=== PATIENT | female | born 1955 | race Caucasian/White ===

== ENCOUNTER 2018-03-26 10:30 | Outpatient (RCR) | payer OTHER, SELFPAY ==
--- NOTE | 2018-03-02 08:12 | PT.OTN ---
Addendum entered and electronically signed by Ole Szymanski, VIDHYA 03/03/18 16:30: On February 16, 2018 our therapy services consisting of Speech, Occupational, and Physical therapy transitioned from [employer] electronic documentation system to a new [employer] electronic system. All documentation prior to February 16 can be found under [employer] saved data. From February 16 forward, all medical record documentation will be in [employer]. 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) Other reduced mobility (02/26/18) Physical Therapy Treatment Note PT-OP-A Visit Information Start: 03/01/18 16:25 Freq: Status: Active Protocol: Document 02/26/18 12:30 SAK (Rec: 03/01/18 16:40 SAK [id number]) Out-Patient Physical Therapy Visit Information Visit Information Visit Type Treatment Note Visit Start Time 12:30 Visit Stop Time 13:15 Total Visit Minutes 45 Visit Number 2 Number of CUTTING MACHINE TENDER Visits 0 PT-OP-C Subjective Start: 03/01/18 16:25 Freq: Status: Active Protocol: Document 02/26/18 12:30 SAK (Rec: 03/01/18 16:40 SAK [id number]) OP-PT Subjective Patient Comments Patient Comments Excited to start aquatic therapy: I think I will tolerate this better than land -based exercise right now. PT-OP-S Aquatic Treatment Start: 03/01/18 16:25 Freq: Status: Active Protocol: Document 02/26/18 12:30 SAK (Rec: 03/01/18 16:40 SAK [id number]) Aquatics Treatment Pool Entry/Exit Pool Entry/Exit Method Stairs Assistance Standby Assistance Verbal Cues Water Walking Marching Water Level Chest Level Level of Assistance Standby Assistance Sideways Water Level Chest Level Level of Assistance Standby Assistance Verbal Cues Backwards Water Level Chest Level Level of Assistance Standby Assistance Verbal Cues Forwards Water Level Chest Level Level of Assistance Standby Assistance Verbal Cues Lower Extremity Exercises 3 Details Hip flex/ext, ab/ad, circles Body Position Standing Water Level Chest Level Reps/Duration 10x 2 Details squats Body Position Standing Water Level Waist Level Reps/Duration 10x 1 Details heel/toe raises Body Position Standing Water Level Chest Level Reps/Duration 10x Lower Extremity Stretches 1 Details hamstring stretch Body Position Standing Water Level Chest Level Equipment Ankle Floats; small Reps/Duration 2x Upper Extremity Exercises 1 Details shoulder hor ab/ad, flex/ext, circles Body Position Standing Water Level Chest Level Reps/Duration 10x [place] Activities [place] Activities Bicycle Other Activities Hip ab/ad Equipment none Duration 10 min Comments slow, frequent rest PT-OP-T Assessment and Plan Start: 03/01/18 16:25 Freq: Status: Active Protocol: Document 02/26/18 12:[address] [facility] (Rec: 03/01/18 16:[address] [facility] [id number]) Physical Therapy Plan Frequency and Duration Frequency of Treatment 2x/Week Next Visit Focus/Plan Next Visit Plan Gentle progression of therapeutic exercises; aquatic as able.
--- NOTE | 2018-03-05 11:47 | PT.OTN ---
Current Diagnoses Ataxia, unspecified (03/05/18) Other reduced mobility (03/05/18) Physical Therapy Treatment Note PT-OP-A Visit Information Start: 03/01/18 16:25 Freq: Status: Active Protocol: Document 03/05/18 09:00 GGD (Rec: 03/05/18 11:47 GGD [email or web address]) Out-Patient Physical Therapy Visit Information Visit Information Visit Type Treatment Note Visit Start Time 09:00 Visit Stop Time 09:55 Total Visit Minutes 55 Visit Number 5 Number of PANEL EDGE PAINTER Visits 1 Evaluation Information Evaluation Date 02/04/18 PT-OP-C Subjective Start: 03/01/18 16:25 Freq: Status: Active Protocol: Document 03/05/18 09:00 GGD (Rec: 03/05/18 11:47 GGD [email or web address]) OP-PT Subjective Patient Comments Patient Comments Pt states she was doing her HEP, until she got sick. PT-OP-Q Treatments Start: 03/05/18 11:34 Freq: Status: Active Protocol: Document 03/05/18 09:00 GGD (Rec: 03/05/18 11:47 GGD [email or web address]) Cardio Equipment Recumbent Elliptical (Biodex) Duration (Minutes) 5 Resistance 1 Therapeutic Exercises Supine Exercises 2 Supine Exercise Name Figure 4 str Side bilateral Reps/Minutes 2 1 Supine Exercise Name Flexion SLR Side bilateral Reps/Minutes 10 Prone Exercises 2 Prone Exercise Name hip extension Side bilateral Reps/Minutes 10 Sidelying Exercises 3 Sidelying Exercise Name clamshells Side bilateral Reps/Minutes 10 2 Sidelying Exercise Name Hip Adduction Side bilateral Reps/Minutes 10 1 Sidelying Exercise Name hip abduction Side bilateral Reps/Minutes 10 Other Exercises 1 Other Exercise Name Sit to stnd s Reps/Minutes 2 x 11 PT-OP-R Modalities Start: 03/05/18 11:34 Freq: Status: Active Protocol: Document 03/05/18 09:00 GGD (Rec: 03/05/18 11:47 GGD [email or web address]) Hot Pack/Cold Pack Treatment Cold Pack Location L/S Patient Position Hooklying Treatment Duration (minutes) 10 Patient Tolerance Good PT-OP-S Aquatic Treatment Start: 03/01/18 16:25 Freq: Status: Active Protocol: Document 02/26/18 12:30 SAK (Rec: 03/01/18 16:40 SAK [id number]) Aquatics Treatment Pool Entry/Exit Pool Entry/Exit Method Stairs Assistance Standby Assistance Verbal Cues Water Walking Marching Water Level Chest Level Level of Assistance Standby Assistance Sideways Water Level Chest Level Level of Assistance Standby Assistance Verbal Cues Backwards Water Level Chest Level Level of Assistance Standby Assistance Verbal Cues Forwards Water Level Chest Level Level of Assistance Standby Assistance Verbal Cues Lower Extremity Exercises 3 Details Hip flex/ext, ab/ad, circles Body Position Standing Water Level Chest Level Reps/Duration 10x 2 Details squats Body Position Standing Water Level Waist Level Reps/Duration 10x 1 Details heel/toe raises Body Position Standing Water Level Chest Level Reps/Duration 10x Lower Extremity Stretches 1 Details hamstring stretch Body Position Standing Water Level Chest Level Equipment Ankle Floats; small Reps/Duration 2x Upper Extremity Exercises 1 Details shoulder hor ab/ad, flex/ext, circles Body Position Standing Water Level Chest Level Reps/Duration 10x [place] Activities [place] Activities Bicycle Other Activities Hip ab/ad Equipment none Duration 10 min Comments slow, frequent rest PT-OP-T Assessment and Plan Start: 03/01/18 16:25 Freq: Status: Active Protocol: Document 03/05/18 09:00 GGD (Rec: 03/05/18 11:47 GGD [email or web address]) Physical Therapy Assessment Assessment Summary Assessment Pt slight improved tolerance to exercise. She did need rest breaks during, but less overall and increase reps on SLR and sit to stand. Physical Therapy Plan Frequency and Duration Frequency of Treatment 2x/Week Plan of Care Start Date 02/04/18 Plan of Care End Date 04/05/18 Next Visit Focus/Plan Next Visit Plan Thera band strengthening exercise and aquatic as able.
--- NOTE | 2018-03-10 17:18 | PT.OTN ---
Current Diagnoses Ataxia, unspecified (03/10/18) Other reduced mobility (03/10/18) Physical Therapy Treatment Note PT-OP-A Visit Information Start: 03/01/18 16:25 Freq: Status: Active Protocol: Document 03/10/18 16:00 GGD (Rec: 03/10/18 17:18 GGD [email or web address]) Out-Patient Physical Therapy Visit Information Visit Information Visit Type Treatment Note Visit Start Time 16:00 Visit Stop Time 16:40 Total Visit Minutes 40 Visit Number 6 Number of CEMENT CUTTER Visits 2 Evaluation Information Evaluation Date 02/04/18 PT-OP-C Subjective Start: 03/01/18 16:25 Freq: Status: Active Protocol: Document 03/10/18 16:00 GGD (Rec: 03/10/18 17:18 GGD [email or web address]) OP-PT Subjective Patient Comments Patient Comments Pt states that she doing better and feels a little stronger. PT-OP-Q Treatments Start: 03/05/18 11:34 Freq: Status: Active Protocol: Document 03/10/18 16:00 GGD (Rec: 03/10/18 17:18 GGD [email or web address]) Cardio Equipment Recumbent Elliptical (Biodex) Duration (Minutes) 5 Resistance 1 Therapeutic Exercises Supine Exercises 2 Supine Exercise Name Figure 4 str Side bilateral Reps/Minutes 2 1 Supine Exercise Name Flexion SLR Side bilateral Reps/Minutes 20 Sidelying Exercises 3 Sidelying Exercise Name clamshells Side bilateral Reps/Minutes 20 2 Sidelying Exercise Name Hip Adduction Side bilateral Reps/Minutes 20 Standing Exercises 2 Standing Exercise Name Hip Abd Side bilateral Resistance Level 1 Reps/Minutes 20 1 Standing Exercise Name Hip Extension Side bilateral Resistance Level 1 Equipment Used Thera band Reps/Minutes 20 Other Exercises 1 Other Exercise Name Sit to stands Reps/Minutes 2 x 15 PT-OP-R Modalities Start: 03/05/18 11:34 Freq: Status: Active Protocol: Document 03/05/18 09:00 GGD (Rec: 03/05/18 11:47 GGD [email or web address]) Hot Pack/Cold Pack Treatment Cold Pack Location L/S Patient Position Hooklying Treatment Duration (minutes) 10 Patient Tolerance Good PT-OP-S Aquatic Treatment Start: 03/01/18 16:25 Freq: Status: Active Protocol: Document 02/26/18 12:30 SAK (Rec: 03/01/18 16:40 SAK [id number]) Aquatics Treatment Pool Entry/Exit Pool Entry/Exit Method Stairs Assistance Standby Assistance Verbal Cues Water Walking Marching Water Level Chest Level Level of Assistance Standby Assistance Sideways Water Level Chest Level Level of Assistance Standby Assistance Verbal Cues Backwards Water Level Chest Level Level of Assistance Standby Assistance Verbal Cues Forwards Water Level Chest Level Level of Assistance Standby Assistance Verbal Cues Lower Extremity Exercises 3 Details Hip flex/ext, ab/ad, circles Body Position Standing Water Level Chest Level Reps/Duration 10x 2 Details squats Body Position Standing Water Level Waist Level Reps/Duration 10x 1 Details heel/toe raises Body Position Standing Water Level Chest Level Reps/Duration 10x Lower Extremity Stretches 1 Details hamstring stretch Body Position Standing Water Level Chest Level Equipment Ankle Floats; small Reps/Duration 2x Upper Extremity Exercises 1 Details shoulder hor ab/ad, flex/ext, circles Body Position Standing Water Level Chest Level Reps/Duration 10x [place] Activities [place] Activities Bicycle Other Activities Hip ab/ad Equipment none Duration 10 min Comments slow, frequent rest PT-OP-T Assessment and Plan Start: 03/01/18 16:25 Freq: Status: Active Protocol: Document 03/10/18 16:00 [facility]GS[facility]on (Rec: 03/10/18 17:18 GGS[facility]on [email or web address]) Physical Therapy Assessment Assessment Summary Assessment Pt improving with exercise tolerance. She needed less rest and able to increase reps and resistance. Physical Therapy Plan Frequency and Duration Frequency of Treatment 2x/Week Plan of Care Start Date 02/04/18 Plan of Care End Date 04/05/18 Next Visit Focus/Plan Next Visit Plan Thera band strengthening exercise and aquatic as able.
--- NOTE | 2018-03-12 15:53 | PT.OTN ---
Current Diagnoses Ataxia, unspecified (03/12/18) Other reduced mobility (03/12/18) Physical Therapy Treatment Note PT-OP-A Visit Information Start: 03/01/18 16:25 Freq: Status: Active Protocol: Document 03/12/18 11:00 SAK (Rec: 03/12/18 15:50 SAK [id number]) Out-Patient Physical Therapy Visit Information Visit Information Visit Type Treatment Note Visit Start Time 11:00 Visit Stop Time 11:45 Total Visit Minutes 45 Visit Number 7 Number of ANIMATION DIRECTOR Visits 0 PT-OP-C Subjective Start: 03/01/18 16:25 Freq: Status: Active Protocol: Document 03/12/18 11:00 SAK (Rec: 03/12/18 15:50 SAK [id number]) OP-PT Subjective Patient Comments Patient Comments Patient reports feeling a little stronger, was pleased she was able to do more in her last PT session. PT-OP-Q Treatments Start: 03/05/18 11:34 Freq: Status: Active Protocol: Document 03/10/18 16:00 GGD (Rec: 03/10/18 17:18 GGD [email or web address]) Cardio Equipment Recumbent Elliptical (BiodInfinit) Duration (Minutes) 5 Resistance 1 Therapeutic Exercises Supine Exercises 2 Supine Exercise Name Figure 4 str Side bilateral Reps/Minutes 2 1 Supine Exercise Name Flexion SLR Side bilateral Reps/Minutes 20 Sidelying Exercises 3 Sidelying Exercise Name clamshells Side bilateral Reps/Minutes 20 2 Sidelying Exercise Name Hip Adduction Side bilateral Reps/Minutes 20 Standing Exercises 2 Standing Exercise Name Hip Abd Side bilateral Resistance Level 1 Reps/Minutes 20 1 Standing Exercise Name Hip Extension Side bilateral Resistance Level 1 Equipment Used Thera band Reps/Minutes 20 Other Exercises 1 Other Exercise Name Sit to stands Reps/Minutes 2 x 15 PT-OP-R Modalities Start: 03/05/18 11:34 Freq: Status: Active Protocol: Document 03/05/18 09:00 GGD (Rec: 03/05/18 11:47 GGD [email or web address]) Hot Pack/Cold Pack Treatment Cold Pack Location L/S Patient Position Hooklying Treatment Duration (minutes) 10 Patient Tolerance Good PT-OP-S Aquatic Treatment Start: 03/01/18 16:25 Freq: Status: Active Protocol: Document 03/12/18 11:00 SAK (Rec: 03/12/18 15:53 [facility] [id number]) Aquatics Treatment Pool Entry/Exit Pool Entry/Exit Method Stairs Assistance Independent Water Walking Marching Water Level Chest Level Level of Assistance Verbal Cues Sideways Water Level Chest Level Level of Assistance Verbal Cues Backwards Water Level Chest Level Level of Assistance Verbal Cues Forwards Water Level Chest Level Level of Assistance Verbal Cues Lower Extremity Exercises 3 Details Hip flex/ext, ab/ad, circles Body Position Standing Water Level Chest Level Reps/Duration 10x 2 Details squats Body Position Standing Water Level Waist Level Reps/Duration 12 1 Details heel raises Lower Extremity Stretches 1 Details hamstring stretch Body Position Standing Water Level Chest Level Equipment Ankle Floats; small Reps/Duration 2x Upper Extremity Exercises 1 Details shoulder hor ab/ad, flex/ext, circles Body Position Standing Water Level Chest Level Reps/Duration 10x [place] Activities Other Activities deep water hang Equipment flotation belt Duration 10 min Comments less rest required. verbal and manual cues for correction of alignment PT-OP-T Assessment and Plan Start: 03/01/18 16:25 Freq: Status: Active Protocol: Document 03/12/18 11:00 [facility] (Rec: 03/12/18 15:50 [facility] [id number]) Physical Therapy Assessment Assessment Summary Assessment Patient demonstrated improved tolerance for aquatic therapy, improved alignment and balance ability in deep end with reversing flotation belt. Verbal and manual cues due to right lean Physical Therapy Plan Frequency and Duration Frequency of Treatment 2x/Week Duration of Treatment 2 months Plan of Care Start Date 02/04/18 Plan of Care End Date 04/05/18 Next Visit Focus/Plan Next Note Type Treatment Note Next Visit Plan Progress ther ex, aquatic exercise as tolerated. Please Sign and Return: I have reviewed this Plan of Care and certify that the skilled therapy services above are required to meet the patient???s needs. Physician Signature Date Printed Name and Credentials Clinical Instructor Signature Printed Name and Credentials
--- NOTE | 2018-03-26 16:43 | PT.OTN ---
Current Diagnoses Ataxia, unspecified (03/26/18) Other reduced mobility (03/26/18) Physical Therapy Treatment Note PT-OP-A Visit Information Start: 03/01/18 16:25 Freq: Status: Active Protocol: Document 03/26/18 10:51 LRN (Rec: 03/26/18 11:16 LRN [id number]) Out-Patient Physical Therapy Visit Information Visit Information Visit Type Progress Note Visit Start Time 10:51 Visit Stop Time 11:31 Total Visit Minutes 40 Visit Number 8 Number of FLAP PRESSER Visits 0 Evaluation Information Evaluation Date 02/04/18 PT-OP-C Subjective Start: 03/01/18 16:25 Freq: Status: Active Protocol: Document 03/26/18 10:51 LRN (Rec: 03/26/18 11:16 LRN [id number]) OP-PT Subjective Patient Comments Patient Comments Feels like she is worse with more pain in the back, hips, LE's, I'm failing and more depressed. Got a rash in her lower sacral area, so unable to go to pool. Patient Questionnaires ABC- Activity Specific Balance Confidence Scale ABC Score 48 ABC Functional Impairment 40 to <60% Impaired (Score 41- 60) Oswestry Low Back Index Oswestry Score 68 Oswestry Impairment 60 to 79% Impaired (Score 60- 79) OP-PT Pain Assessment Pain Behaviors Pain Behaviors Guarding PT-OP-E Functional Tests Start: 03/26/18 15:47 Freq: Status: Active Protocol: Document 03/26/18 10:51 LRN (Rec: 03/26/18 16:14 LRN [id number]) Functional Tests 30 Second Sit to Stand Test Score 8 reps Comments Pt pushed hands on knees. Norm is 12-17 Five Times Sit to Stand Test Score 23 sec's Comments Pt pushed hands on knees. Norm is 11.4 sec's PT-OP-Q Treatments Start: 03/05/18 11:34 Freq: Status: Active Protocol: Document 03/10/18 16:00 GGD (Rec: 03/10/18 17:18 GGD [email or web address]) Cardio Equipment Recumbent Elliptical (Biodex) Duration (Minutes) 5 Resistance 1 Therapeutic Exercises Supine Exercises 2 Supine Exercise Name Figure 4 str Side bilateral Reps/Minutes 2 1 Supine Exercise Name Flexion SLR Side bilateral Reps/Minutes 20 Sidelying Exercises 3 Sidelying Exercise Name clamshells Side bilateral Reps/Minutes 20 2 Sidelying Exercise Name Hip Adduction Side bilateral Reps/Minutes 20 Standing Exercises 2 Standing Exercise Name Hip Abd Side bilateral Resistance Level 1 Reps/Minutes 20 1 Standing Exercise Name Hip Extension Side bilateral Resistance Level 1 Equipment Used Thera band Reps/Minutes 20 Other Exercises 1 Other Exercise Name Sit to stands Reps/Minutes 2 x 15 PT-OP-R Modalities Start: 03/05/18 11:34 Freq: Status: Active Protocol: Document 03/26/18 10:51 LRN (Rec: 03/26/18 11:16 LRN [id number]) Hot Pack/Cold Pack Treatment Cold Pack Location L/S Patient Position Hooklying Treatment Duration (minutes) 10 Patient Tolerance Good PT-OP-S Aquatic Treatment Start: 03/01/18 16:25 Freq: Status: Active Protocol: Document 03/12/18 11:00 SAK (Rec: 03/12/18 15:53 SAK [id number]) Aquatics Treatment Pool Entry/Exit Pool Entry/Exit Method Stairs Assistance Independent Water Walking Marching Water Level Chest Level Level of Assistance Verbal Cues Sideways Water Level Chest Level Level of Assistance Verbal Cues Backwards Water Level Chest Level Level of Assistance Verbal Cues Forwards Water Level Chest Level Level of Assistance Verbal Cues Lower Extremity Exercises 3 Details Hip flex/ext, ab/ad, circles Body Position Standing Water Level Chest Level Reps/Duration 10x 2 Details squats Body Position Standing Water Level Waist Level Reps/Duration 12 1 Details heel raises Lower Extremity Stretches 1 Details hamstring stretch Body Position Standing Water Level Chest Level Equipment Ankle Floats; small Reps/Duration 2x Upper Extremity Exercises 1 Details shoulder hor ab/ad, flex/ext, circles Body Position Standing Water Level Chest Level Reps/Duration 10x [place] Activities Other Activities deep water hang Equipment flotation belt Duration 10 min Comments less rest required. verbal and manual cues for correction of alignment PT-OP-T Assessment and Plan Start: 03/01/18 16:25 Freq: Status: Active Protocol: Document 03/26/18 10:51 LRN (Rec: 03/26/18 11:16 LRN [id number]) Physical Therapy Assessment Rehab Potential Rehabilitation Potential Good Impairments Impairments Balance Functional Mobility Gait Posture Goals Four Impairment Pt not able to exercise independently with land based exercises. Acoustical Tile Carpenters Supervisor Goal (LTG) Pt will tolerate independent land based exercise to transition to gym exercise at discharge. LTG Duration 05/26/2018: 2 months Three Impairment Decreased function per ABC Scoring of 48% confidence Longterm Goal (LTG) Improve pt's confidence in functioinal activbities to no less than 70% confidence per ABC Scale sot the pt feels more secure with gait. LTG Duration 05/26/2018: 2 months Two Impairment Decreased function per 5TSTS Test Longterm Goal (LTG) Pt will demonstrated improved 5TSTS test of < 12 sec's to show decreased risk of falling . LTG Duration 05/26/2018: 2 months One Impairment Lack of self care HEP Longterm Goal (LTG) Pt will be educated in an independent HEP/Self Care Program. LTG Duration 05/26/2018: 2 months Progress Towards Goals Progress Comments Pt met the goal to improve 30 sec Sit to Stand test > 3 reps to show improved endurance. She also met the goal to improve LE strength to strength. LE strength is no less than 4/5 at ankles/knees/ hip extension. Pt's LBP is primarily hindering her feeling of stability and mobility. Assessment Summary Assessment Pt has shown good improvement in LE strength and overall endurance, leading to improved confidence level in function per ABC Score. She does not perceive she has improved due to her chronic back pain, but is now hopeful she can further improve and would like to continue therapy to maximize her function with her goal to wean off of her medications. The pt has verbalized her feelings of depression; therefore referral to the pain clinic may be helpful. I recommend continuation of therapy to work towards the pt goal of improving function and hopefully help her to wean off of her medications. Physical Therapy Plan Frequency and Duration Frequency of Treatment 2x/Week Duration of Treatment 2 months Plan of Care Start Date 03/26/18 Plan of Care End Date 05/28/18 Therapeutic Interventions Therapeutic Interventions Aquatic Therapy Balance Training Gait Training Home Exercise Program Manual Therapy Neuromuscular Re-education Patient/Caregiver Education Self-Care/Home Management Soft Tissue Mobilization Therapeutic Activities Therapeutic Exercises Other Therapeutic Interventions Aerobic conditioning Other Referrals/Consults Referrals/Consults Recommended Pain clinic Next Visit Focus/Plan Next Note Type Treatment Note Next Visit Plan Progress therapeutic ex on land and aquatic exercise as tolerated to achieve the above stated goals. Please Sign and Return: I have reviewed this Plan of Care and certify that the skilled therapy services above are required to meet the patient?s needs. Physician Signature Date Printed Name and Credentials Clinical Instructor Signature Printed Name and Credentials
--- NOTE | 2018-03-26 17:03 | PT.OTN ---
Current Diagnoses Ataxia, unspecified (03/26/18) Other reduced mobility (03/26/18) Physical Therapy Treatment Note PT-OP-A Visit Information Start: 03/01/18 16:25 Freq: Status: Active Protocol: Document 03/26/18 10:51 LRN (Rec: 03/26/18 11:16 LRN [id number]) Out-Patient Physical Therapy Visit Information Visit Information Visit Type Progress Note Visit Start Time 10:51 Visit Stop Time 11:31 Total Visit Minutes 40 Visit Number 8 Number of CORRESPONDENT Visits 0 Evaluation Information Evaluation Date 02/04/18 PT-OP-C Subjective Start: 03/01/18 16:25 Freq: Status: Active Protocol: Document 03/26/18 10:51 LRN (Rec: 03/26/18 11:16 LRN [id number]) OP-PT Subjective Patient Comments Patient Comments Feels like she is worse with more pain in the back, hips, LE's, I'm failing and more depressed. Got a rash in her lower sacral area, so unable to go to pool. Patient Questionnaires ABC- Activity Specific Balance Confidence Scale ABC Score 48 ABC Functional Impairment 40 to <60% Impaired (Score 41- 60) Oswestry Low Back Index Oswestry Score 68 Oswestry Impairment 60 to 79% Impaired (Score 60- 79) OP-PT Pain Assessment Pain Behaviors Pain Behaviors Guarding PT-OP-E Functional Tests Start: 03/26/18 15:47 Freq: Status: Active Protocol: Document 03/26/18 10:51 LRN (Rec: 03/26/18 16:14 LRN [id number]) Functional Tests 30 Second Sit to Stand Test Score 8 reps Comments Pt pushed hands on knees. Norm is 12-17 Five Times Sit to Stand Test Score 23 sec's Comments Pt pushed hands on knees. Norm is 11.4 sec's PT-OP-M Strength Start: 03/26/18 16:58 Freq: Status: Active Protocol: Document 03/26/18 10:51 LRN (Rec: 03/26/18 17:00 LRN [id number]) Hip Strength Hip Manual Muscle Testing Right Extension (S1) 4 Good Left Extension (S1) 4 Good Knee Strength Knee Manual Muscle Testing Right Flexion (S2) 5 Normal Extension (L3) 5 Normal Left Flexion (S2) 5 Normal Extension (L3) 5 Normal Ankle/Foot Strength Ankle and Foot Manual Muscle Testing Right Dorsiflexion (L4) 5 Normal Plantarflexion (S1) 5 Normal Inversion 5 Normal Eversion (S1) 5 Normal Left Dorsiflexion (L4) 5 Normal Plantarflexion (S1) 5 Normal Inversion 5 Normal Eversion (S1) 5 Normal PT-OP-Q Treatments Start: 03/05/18 11:34 Freq: Status: Active Protocol: Document 03/10/18 16:00 GGD (Rec: 03/10/18 17:18 GGD [id number]) Cardio Equipment Recumbent Elliptical (Biodex) Duration (Minutes) 5 Resistance 1 Therapeutic Exercises Supine Exercises 2 Supine Exercise Name Figure 4 str Side bilateral Reps/Minutes 2 1 Supine Exercise Name Flexion SLR Side bilateral Reps/Minutes 20 Sidelying Exercises 3 Sidelying Exercise Name clamshells Side bilateral Reps/Minutes 20 2 Sidelying Exercise Name Hip Adduction Side bilateral Reps/Minutes 20 Standing Exercises 2 Standing Exercise Name Hip Abd Side bilateral Resistance Level 1 Reps/Minutes 20 1 Standing Exercise Name Hip Extension Side bilateral Resistance Level 1 Equipment Used Thera band Reps/Minutes 20 Other Exercises 1 Other Exercise Name Sit to stands Reps/Minutes 2 x 15 PT-OP-R Modalities Start: 03/05/18 11:34 Freq: Status: Active Protocol: Document 03/26/18 10:51 LRN (Rec: 03/26/18 11:16 LRN [id number]) Hot Pack/Cold Pack Treatment Cold Pack Location L/S Patient Position Hooklying Treatment Duration (minutes) 10 Patient Tolerance Good PT-OP-S Aquatic Treatment Start: 03/01/18 16:25 Freq: Status: Active Protocol: Document 03/12/18 11:00 SAK (Rec: 03/12/18 15:53 SAK [id number]) Aquatics Treatment Pool Entry/Exit Pool Entry/Exit Method Stairs Assistance Independent Water Walking Marching Water Level Chest Level Level of Assistance Verbal Cues Sideways Water Level Chest Level Level of Assistance Verbal Cues Backwards Water Level Chest Level Level of Assistance Verbal Cues Forwards Water Level Chest Level Level of Assistance Verbal Cues Lower Extremity Exercises 3 Details Hip flex/ext, ab/ad, circles Body Position Standing Water Level Chest Level Reps/Duration 10x 2 Details squats Body Position Standing Water Level Waist Level Reps/Duration 12 1 Details heel raises Lower Extremity Stretches 1 Details hamstring stretch Body Position Standing Water Level Chest Level Equipment Ankle Floats; small Reps/Duration 2x Upper Extremity Exercises 1 Details shoulder hor ab/ad, flex/ext, circles Body Position Standing Water Level Chest Level Reps/Duration 10x [place] Activities Other Activities deep water hang Equipment flotation belt Duration 10 min Comments less rest required. verbal and manual cues for correction of alignment PT-OP-T Assessment and Plan Start: 03/01/18 16:25 Freq: Status: Active Protocol: Document 03/26/18 10:51 LRN (Rec: 03/26/18 11:16 LRN [id number]) Physical Therapy Assessment Rehab Potential Rehabilitation Potential Good Impairments Impairments Balance Functional Mobility Gait Posture Goals Four Impairment Pt not able to exercise independently with land based exercises. Residential Goal (LTG) Pt will tolerate independent land based exercise to transition to gym exercise at discharge. LTG Duration 05/26/2018: 2 months Three Impairment Decreased function per ABC Scoring of 48% confidence Residential Goal (LTG) Improve pt's confidence in functioinal activbities to no less than 70% confidence per ABC Scale sot the pt feels more secure with gait. LTG Duration 05/26/2018: 2 months Two Impairment Decreased function per 5TSTS Test Rn Behavioral Health Goal (LTG) Pt will demonstrated improved 5TSTS test of < 12 sec's to show decreased risk of falling . LTG Duration 05/26/2018: 2 months One Impairment Lack of self care HEP Rn Behavioral Health Goal (LTG) Pt will be educated in an independent HEP/Self Care Program. LTG Duration 05/26/2018: 2 months Progress Towards Goals Progress Comments Pt met the goal to improve 30 sec Sit to Stand test > 3 reps to show improved endurance. She also met the goal to improve LE strength to strength. LE strength is no less than 4/5 at ankles/knees/ hip extension. Pt's LBP is primarily hindering her feeling of stability and mobility. Assessment Summary Assessment Pt has shown good improvement in LE strength and overall endurance, leading to improved confidence level in function per ABC Score. She does not perceive she has improved due to her chronic back pain, but is now hopeful she can further improve and would like to continue therapy to maximize her function with her goal to wean off of her medications. The pt has verbalized her feelings of depression; therefore referral to the pain clinic may be helpful. I recommend continuation of therapy to work towards the pt goal of improving function and hopefully help her to wean off of her medications. Physical Therapy Plan Frequency and Duration Frequency of Treatment 2x/Week Duration of Treatment 2 months Plan of Care Start Date 03/26/18 Plan of Care End Date 05/28/18 Therapeutic Interventions Therapeutic Interventions Aquatic Therapy Balance Training Gait Training Home Exercise Program Manual Therapy Neuromuscular Re-education Patient/Caregiver Education Self-Care/Home Management Soft Tissue Mobilization Therapeutic Activities Therapeutic Exercises Other Therapeutic Interventions Aerobic conditioning Other Referrals/Consults Referrals/Consults Recommended Pain clinic Next Visit Focus/Plan Next Note Type Treatment Note Next Visit Plan Progress therapeutic ex on land and aquatic exercise as tolerated to achieve the above stated goals. Please Sign and Return: I have reviewed this Plan of Care and certify that the skilled therapy services above are required to meet the patient?s needs. Physician Signature Date Printed Name and Credentials Clinical Instructor Signature Printed Name and Credentials
--- NOTE | 2018-06-17 09:31 | PT.OPDS ---
Current Diagnoses Ataxia, unspecified (03/26/18) Other reduced mobility (03/26/18) Provider Visit Care Team Role Provider Type Jesus Almanzar MD Attending Provider Physician Family Provider Primary Care Provider Specialty: Internal Medicine Address: [address] [place] [address], [facility] Email: Visit Number Visit Number 8 Discharge Summary PT-OP-C Subjective Start: 03/01/18 16:25 Freq: Status: Active Protocol: Document 06/17/18 09:15 LRN (Rec: 06/17/18 09:27 LRN [id number]) Patient Questionnaires Oswestry Low Back Index Oswestry Score 68 Oswestry Impairment 60 to 79% Impaired (Score 60- 79) PT-OP-E Functional Tests Start: 03/26/18 15:47 Freq: Status: Active Protocol: Document 06/17/18 09:15 LRN (Rec: 06/17/18 09:28 LRN [id number]) Functional Tests 30 Second Sit to Stand Test Score 8 reps Comments Pt pushed hands on knees. Norm is 12-17 Five Times Sit to Stand Test Score 23 sec's Comments Pt pushed hands on knees. Norm is 11.4 sec's PT-OP-M Strength Start: 03/26/18 16:58 Freq: Status: Active Protocol: Document 03/26/18 10:51 LRN (Rec: 03/26/18 17:00 LRN [id number]) Hip Strength Hip Manual Muscle Testing Right Extension (S1) 4 Good Left Extension (S1) 4 Good Knee Strength Knee Manual Muscle Testing Right Flexion (S2) 5 Normal Extension (L3) 5 Normal Left Flexion (S2) 5 Normal Extension (L3) 5 Normal Ankle/Foot Strength Ankle and Foot Manual Muscle Testing Right Dorsiflexion (L4) 5 Normal Plantarflexion (S1) 5 Normal Inversion 5 Normal Eversion (S1) 5 Normal Left Dorsiflexion (L4) 5 Normal Plantarflexion (S1) 5 Normal Inversion 5 Normal Eversion (S1) 5 Normal PT-OP-T Assessment and Plan Start: 03/01/18 16:25 Freq: Status: Active Protocol: Document 06/17/18 09:15 LRN (Rec: 06/17/18 09:27 LRN [id number]) Physical Therapy Assessment Impairments Impairments Balance Functional Mobility Gait Posture Goals Four Impairment Pt not able to exercise independently with land based exercises. Mcc Goal (LTG) Pt will tolerate independent land based exercise to transition to gym exercise at discharge. LTG Duration 05/26/2018: 2 months Three Impairment Decreased function per ABC Scoring of 48% confidence Mcc Goal (LTG) Improve pt's confidence in functioinal activbities to no less than 70% confidence per ABC Scale sot the pt feels more secure with gait. LTG Duration 05/26/2018: 2 months Two Impairment Decreased function per 5TSTS Test Mcc Goal (LTG) Pt will demonstrated improved 5TSTS test of < 12 sec's to show decreased risk of falling . LTG Duration 05/26/2018: 2 months One Impairment Lack of self care HEP Clerical Adjudicator Goal (LTG) Pt will be educated in an independent HEP/Self Care Program. LTG Duration 05/26/2018: 2 months Progress Towards Goals Progress Comments Pt met the goal to improve 30 sec Sit to Stand test > 3 reps to show improved endurance. She also met the goal to improve LE strength to strength. LE strength is no less than 4/5 at ankles/knees/ hip extension. Pt's LBP is primarily hindering her feeling of stability and mobility. Assessment Summary Assessment On the pt's last attended visit of 03/26/2018 the pt has showed good improvement in LE strength and overall endurance , leading to improved confidence level in function per ABC Score. She did not perceive she had improved due to her chronic back pain, but was hopeful she could further improve and wanted to continue therapy to maximize her function with her goal to wean off of her medications. The pt had verbalized her feelings of depression. The pt left a message with Daniela Mckay PT to discharge from therapy due to health issues. Physical Therapy Plan Other Referrals/Consults Referrals/Consults Recommended Pain clinic Next Visit Focus/Plan Next Note Type Discharge Summary Next Visit Plan No further therapy is planned. The pt is being discharged from therapy per pt choice.
== END 2018-06-18 09:34 ==
LOC: PHYS 10:30
PROVIDERS: Family Provider Internal Medicine; PCP Internal Medicine; Visit Provider Internal Medicine
DX: R27.0 Ataxia, unspecified (principal); Z74.09 Other reduced mobility
CPT/HCPCS: 95831; 97010; 97110; 97113

== ENCOUNTER → 2018-07-09 14:26 | Outpatient (CLI) | payer OTHER, SELFPAY ==
[2018-07-09 14:58] LABS: Hemoglobin A1C% w Est Avg Glu 6.3 % (4.0-6.0)
[2018-07-09 15:26] LABS: Blood Urea Nitrogen 22 mg/dL (7-17); Calcium 10.2 mg/dL (8.4-10.2); Carbon Dioxide 28 mmol/L (22-32); Chloride 100 mmol/L (98-107); Estimated Glomerular Filt Rate 56.2 mL/min (>60); Glucose 176 mg/dL (80-110); HEMOLYSIS < 15 (0-50); Potassium 4.1 mmol/L (3.4-5.1); Sodium 143 mmol/L (137-145)
== END ==
PROVIDERS: Family Provider Internal Medicine; PCP Internal Medicine; Visit Provider Internal Medicine
DX: E11.9 Type 2 diabetes mellitus without complications (principal)
CPT/HCPCS: 36415; 80048; 83036

== ENCOUNTER 2018-12-25 11:01 | Emergency (ER) | payer OTHER, SELFPAY ==
--- NOTE | 2018-12-25 12:04 | ED_ITS ---
HPI - Headache <ARABELLA Stone - Last Filed: 12/25/18 21:51> General Chief Complaint: Headache Stated Complaint: Chills, vomiting, headaches Time Seen by Provider: 12/25/18 12:03 Source: patient Mode of arrival: ambulatory Limitations: no limitations History of Present Illness HPI Narrative: 63-year-old female with history of migraines is a former smoker here for complaint of headache with chills and vomiting over the past couple of weeks. She reports that she has had increasing number of migraines over the past couple weeks after she hit her head on her forehead 2 weeks ago. She denies any loss of consciousness. No neck pain. She denies any stressors relievers of her symptoms. Decreased p.o. intake due to the nausea vomiting. No known fevers. She denies any stressors or relievers of her symptoms. She has photophobia as well. Related Data Home Medications Medication Instructions Recorded Confirmed ondansetron #0 02/15/12 Previous Rx's Medication Instructions Recorded ondansetron 4 mg PO BID-TID PRN #10 tab 12/25/18 Allergies Allergy/AdvReac Type Severity Reaction Status Date / Time Beta-Blockers Allergy Unknown Verified 12/25/18 12:35 (Beta-Adrenergic Bloc Corticosteroids Allergy Unknown Verified 12/25/18 12:35 (Glucocorticoids) gabapentin Allergy Unknown CHRONIC Verified 12/25/18 12:35 NUMBNESS TO FACE/MOUTH neomycin Allergy Unknown Verified 12/25/18 12:35 zolpidem AdvReac Intermediate CONFUSION/A Verified 12/25/18 12:35 MNESIA Review of Systems <ARABELLA Stone - Last Filed: 12/25/18 21:51> Constitutional Denies chills, Denies fever(s), Reports headache(s), Denies lethargy and Denies weakness Eyes Denies change in vision, Denies eye discharge, Denies irritation and Denies loss of vision ENT Ears, Nose, Mouth, and Throat: Denies change in voice, Reports headache(s), Denies neck pain and Denies sore throat Cardiovascular Denies chest pain, Denies irregular heart rhythm, Denies lightheadedness, Denies palpitations, Denies dyspnea, Denies dyspnea on exertion and Denies orthopnea Respiratory Denies cough, Denies dyspnea, Denies dyspnea on exertion and Denies wheezing Gastrointestinal Gastrointestinal: Reports vomiting Genitourinary Denies hematuria, Denies flank pain, Denies urinary incontinence and Denies urinary urgency Musculoskeletal Denies neck pain Integumentary/Breasts Denies pruritus, Denies erythema, Denies rash and Denies wounds Neurologic Denies confusion, Reports headache(s), Denies loss of vision and Denies weakness Psychiatric Denies anxiety, Denies confusion, Denies depression, Denies homicidal ideation and Denies suicidal ideation Endocrine Denies palpitations Hematologic/Lymphatic Denies easy bruising Allergic/Immunologic Denies wheezing PFSH <ARABELLA Stone - Last Filed: 12/25/18 21:51> Social History Smoking Status: Former smoker Social History Smoking Status: Former smoker Exam <ARABELLA Stone - Last Filed: 12/25/18 21:51> Initial Vital Signs Initial Vital Signs: Vital Signs Temperature 97.4 F L 12/25/18 12:07 Pulse Rate 103 H 12/25/18 12:07 Respiratory Rate 16 12/25/18 12:07 Blood Pressure 193/112 H 12/25/18 12:07 Pulse Oximetry 99 12/25/18 12:07 Const General: cooperative and well developed Nutritional Appearance: well nourished Orientation: alert, awake, oriented x3 and not confused HENFL Head: normal to inspection, normocephalic, atraumatic, No Pedraza's sign, No contusion, No hematoma, No laceration, No palpable skull fracture, No raccoon eyes, No scalp lesion and No scalp tenderness Mouth: oral mucosae normal, oropharynx normal and moist mucous membranes Eyes Conjunctivae: conjunctivae normal Sclera: sclerae normal Pupils: PERRL EOM: EOM intact bilaterally Resp Effort & Inspection: normal respiratory effort, able to speak in complete sentences, no respiratory distress and no use of accessory muscles Auscultation: clear to auscultation bilaterally, no rales, no rhonchi and no wheezes Cardio Rate: regular rate Rhythm: regular rhythm Heart Sounds: no click, no gallops, no murmurs and no rubs Pulses: normal peripheral pulses Skin General: no rashes or lesions noted, No jaundice and No petechiae Neuro General: alert, oriented x3, gait normal and no focal motor deficits Speech: speech normal <Roma Sandhu DO - Last Filed: 12/29/18 07:15> Initial Vital Signs Initial Vital Signs: Vital Signs Temperature 97.4 F L 12/25/18 12:07 Pulse Rate 103 H 12/25/18 12:07 Respiratory Rate 16 12/25/18 12:07 Blood Pressure 193/112 H 12/25/18 12:07 Pulse Oximetry 99 12/25/18 12:07 Course <ARABELLA Stone - Last Filed: 12/25/18 21:51> Orders Ordered: Discontinued Medications Diphenhydramine HCl (Benadryl) 25 mg IV NOW ONE Stop: 12/25/18 12:28 Last Admin: 12/25/18 14:05 Dose: 25 mg Sodium Chloride (Normal Saline 0.9%) 1,000 mls @ 1,000 mls/hr IV BOLUS ONE Stop: 12/25/18 13:26 Last Infusion: 12/25/18 15:51 Dose: 0 mls/hr Admin: 12/25/18 14:05 Dose: 1,000 mls/hr Ketorolac Tromethamine (Toradol) 30 mg IV NOW ONE Stop: 12/25/18 12:28 Last Admin: 12/25/18 14:03 Dose: 30 mg Morphine Sulfate (Morphine) 2 mg IV NOW ONE Stop: 12/25/18 14:05 Last Admin: 12/25/18 14:06 Dose: 2 mg Prochlorperazine (Compazine) 10 mg IV NOW ONE Stop: 12/25/18 12:28 Last Admin: 12/25/18 14:05 Dose: 10 mg Vital Signs - 8 hr 12/25/18 15:51 Pulse Rate 107 H Respiratory Rate 99 H Blood Pressure 194/130 H Pulse Oximetry 19 L <Roma Sandhu DO - Last Filed: 12/29/18 07:15> Orders Ordered: Discontinued Medications Diphenhydramine HCl (Benadryl) 25 mg IV NOW ONE Stop: 12/25/18 12:28 Last Admin: 12/25/18 14:05 Dose: 25 mg Sodium Chloride (Normal Saline 0.9%) 1,000 mls @ 1,000 mls/hr IV BOLUS ONE Stop: 12/25/18 13:26 Last Infusion: 12/25/18 15:51 Dose: 0 mls/hr Admin: 12/25/18 14:05 Dose: 1,000 mls/hr Ketorolac Tromethamine (Toradol) 30 mg IV NOW ONE Stop: 12/25/18 12:28 Last Admin: 12/25/18 14:03 Dose: 30 mg Morphine Sulfate (Morphine) 2 mg IV NOW ONE Stop: 12/25/18 14:05 Last Admin: 12/25/18 14:06 Dose: 2 mg Prochlorperazine (Compazine) 10 mg IV NOW ONE Stop: 12/25/18 12:28 Last Admin: 12/25/18 14:05 Dose: 10 mg Vital Signs - 8 hr 12/25/18 15:51 Pulse Rate 107 H Respiratory Rate 99 H Blood Pressure 194/130 H Pulse Oximetry 19 L MDM - Headache <ARABELLA Stone - Last Filed: 12/25/18 21:51> Lab Data Result diagrams: 12/25/18 14:00 Lab Results 12/25/18 12/25/18 Range/Units 14:00 14:00 WBC 11.5 H (4.5-11.0) X10^3/uL RBC 5.25 H (4.0-5.2) X10^6/uL Hgb 15.1 (12.0-16.0) g/dL Hct 44.8 (36-46) % MCV 85.4 (80-100) fL MCH 28.9 (26-34) PG MCHC 33.8 (30-36) % RDW 14.6 (11.6-14.8) % Plt Count 248 (150-400) X10^3/uL Neut % (Auto) 72.6 (50-75) % Lymph % (Auto) 20.2 L (25-40) % [place] % (Auto) 6.7 (3-14) % Eos % (Auto) 0.1 L (2-4) % Baso % (Auto) 0.4 (0-2) % Neut # (Auto) 8300 H (6968-7709) /uL Lymph # (Auto) 2300 (2239-8617) /uL [place] # (Auto) 800 (0-900) /uL Eos # (Auto) 0 (0-450) /uL Baso # (Auto) 0 (0-100) /uL Influenza A & B (PCR) Negative (Negative) Imaging Data CT scan - head: Radiologist's impression: [address] [address] [address] Scan Report Signed Patient: Arely Chauhan#: [id number] : 5Acct:[id number] Age/Sex: 63 / FDate of Service: 12/25/18 Loc: ED Accession Number: [id number] Procedure: CT head/brain wo con Ordering Provider: Trey Diana PROCEDURE: CT HEAD/BRAIN WO CON INDICATIONS: Increase frequency migraines sp hitting forehead 2 weeks ago TECHNIQUE: Noncontrast 4.5 mm thick angled axial sections acquired from the foramen magnum to the vertex, with coronal and sagittal reformats. For radiation dose reduction, the following was used: automated exposure control, adjustment of mA and/or kV according to patient size. COMPARISON: [facility], CT, ABDOMEN/PELVIS WITHOUT CONTRAS, 03/17/2014, 6:54. [facility], CT, PE STUDY (CTA CHEST), 03/17/2014, 4:29. [facility], CT, CHEST/ABD/PEL WITH CONTRAST, 11/05/2013, 5:29. [facility], CT, HEAD WITHOUT CONTRAST, 09/30/2012, 13:37. FINDINGS: Image quality: Excellent. CSF spaces: Basal cisterns are patent. No extra-axial fluid collections. Ventricles are normal in size and shape. Brain: No midline shift. No intracranial masses or hemorrhage. Almaraz-white matter interface is normal. There is mild diffuse cerebral volume loss. There is moderate periventricular and subcortical white matter hypoattenuation, which can be seen with chronic microvascular ischemic changes. There is calcified plaque of the intracranial vasculature. Skull and face: Calvarium and visualized facial bones are intact, without suspicious lesions. Sinuses: Visualized sinuses and mastoids are clear. IMPRESSION: No acute intracranial abnormality. Dictated by: Lauri Rosario M.D. on 12/25/2018 at 13:08 Approved by: Lauri Rosario M.D. on 12/25/2018 at 13:11 [facility] Narrative Medical decision making narrative: CBC was obtained and shows Mildly elevated white count and neutrophils. Otherwise is unremarkable. Influenza swab was obtained and was negative. CT of the head was obtained and was also negative. She was given some fluids, Compazine, Toradol and Benadryl along with small amount of morphine which mildly helped her headache. Her nausea is now better. Her blood pressure is elevated however patient is anxious to get home to take her daily morphine tablet which is 30 mg and thinks that she may be starting to withdrawal. Believe the blood pressure is elevated due to this she is released home to take her medications as prescribed. I suspect that recent head injury may be a trigger to her migraine headaches. Symptoms may also be related to a viral illness as well. Use currently prescribed pain management regimen as needed for any discomfort. She is prescribed Zofran to help with the nausea to facilitate good hydration. Follow up with primary care provider later this week. For any worsening symptoms return to the emergency room. <Roma Sandhu, DO - Last Filed: 12/29/18 07:15> Lab Data Lab Results 12/25/18 12/25/18 Range/Units 14:00 14:00 WBC 11.5 H (4.5-11.0) X10^3/uL RBC 5.25 H (4.0-5.2) X10^6/uL Hgb 15.1 (12.0-16.0) g/dL Hct 44.8 (36-46) % MCV 85.4 (80-100) fL MCH 28.9 (26-34) PG MCHC 33.8 (30-36) % RDW 14.6 (11.6-14.8) % Plt Count 248 (150-400) X10^3/uL Neut % (Auto) 72.6 (50-75) % Lymph % (Auto) 20.2 L (25-40) % [place] % (Auto) 6.7 (3-14) % Eos % (Auto) 0.1 L (2-4) % Baso % (Auto) 0.4 (0-2) % Neut # (Auto) 8300 H (5395-9454) /uL Lymph # (Auto) 2300 (1269-1103) /uL [place] # (Auto) 800 (0-900) /uL Eos # (Auto) 0 (0-450) /uL Baso # (Auto) 0 (0-100) /uL Influenza A & B (PCR) Negative (Negative) Discharge Plan Departure Patient Disposition: Home Clinical Impression: Migraine Qualifiers: Migraine type: unspecified Status migrainosus presence: without status migrainosus Intractability: not intractable Qualified Code(s): G43.909 - Migrain e, unspecified, not intractable, without status migrainosus Discharge Date/Time: 12/25/18 15:54 Interventions: ED Discharge Assessment Last Done: 12/25/18 15:51 Instructions: DI for Migraine Activity Restrictions/Additional Instructions: Influenza swab was obtained and was negative for flu. Suspect that migraines may be triggered due to recent head injury. Suspect may also have viral illness causing symptoms. Use currently prescribed pain management and headache regimen as directed. Plenty of fluids and rest. Zofran is prescribed to help with any nausea use as directed. Follow up with her primary care provider the next few days for re-evaluation. For any worsening symptoms return to the emergency room. Prescriptions: New ondansetron 4 mg tablet,disintegrating 4 mg PO BID-TID PRN (Reason: nausea and vomiting) Qty: 10 RF: 0 No Action ondansetron 4 MG tablet,disintegrating Qty: 0 RF: 0 Referrals: Jesus Almanzar MD [Primary Care Provider] - <Roma Sandhu DO - Last Filed: 12/29/18 07:15> Cosign ED Attending Cosignature Attestation: I was immediately available in the department for consultation. This documentation has been reviewed and I agree with assessment and plan. Supervised by Roma Sandhu DO
[2018-12-25 12:07] VITALS: BP 193/112; PULSE 103; RESP 16; TEMP 36.3; O2SAT 99
[2018-12-25 12:13] VITALS: PULSE 103; RESP 16; TEMP 36.3; O2SAT 99; BMI 40.6
--- NOTE | 2018-12-25 12:28 | DI.CT.S_ITS ---
PROCEDURE: CT HEAD/BRAIN WO CON INDICATIONS: Increase frequency migraines sp hitting forehead 2 weeks ago TECHNIQUE: Noncontrast 4.5 mm thick angled axial sections acquired from the foramen magnum to the vertex, with coronal and sagittal reformats. For radiation dose reduction, the following was used: automated exposure control, adjustment of mA and/or kV according to patient size. COMPARISON: [facility], CT, ABDOMEN/PELVIS WITHOUT CONTRAS, 03/17/2014, 6:54. [facility], CT, PE STUDY (CTA CHEST), 03/17/2014, 4:29. [facility], CT, CHEST/ABD/PEL WITH CONTRAST, 11/05/2013, 5:29. [facility], CT, HEAD WITHOUT CONTRAST, 09/30/2012, 13:37. FINDINGS: Image quality: Excellent. CSF spaces: Basal cisterns are patent. No extra-axial fluid collections. Ventricles are normal in size and shape. Brain: No midline shift. No intracranial masses or hemorrhage. Almaraz-white matter interface is normal. There is mild diffuse cerebral volume loss. There is moderate periventricular and subcortical white matter hypoattenuation, which can be seen with chronic microvascular ischemic changes. There is calcified plaque of the intracranial vasculature. Skull and face: Calvarium and visualized facial bones are intact, without suspicious lesions. Sinuses: Visualized sinuses and mastoids are clear. IMPRESSION: No acute intracranial abnormality. Dictated by: Lauri Rosario M.D. on 12/25/2018 at 13:08 Approved by: Lauri Rosario M.D. on 12/25/2018 at 13:11
[2018-12-25] MEDS: KETOROLAC 60 MG/2 ML VIAL 30 MG IV (14:03)
[2018-12-25] MEDS: PROCHLORPERAZINE 10 MG/2 ML VIAL IV (14:05)
[2018-12-25] MEDS: diphenhydrAMINE 50 MG/ML VIAL 25 MG IV (14:05)
[2018-12-25] MEDS: SODIUM CHLORIDE 0.9% 1,000 ML 1000 ML IV (14:05)
[2018-12-25] MEDS: MORPHINE 2 MG/ML INJ IV (14:06)
[2018-12-25 14:24] LABS: Add Manual Diff / Slide Review NO; Basophils Absolute Auto 0 /uL (0-100); Basophils Percent Auto 0.4 % (0-2); Eosinophils Absolute Auto 0 /uL (0-450); Eosinophils Percent Auto 0.1 % (2-4); Hematocrit 44.8 % (36-46); Hemoglobin 15.1 g/dL (12.0-16.0); Lymphocytes Absolute Auto 2300 /uL (1100-4500); Lymphocytes Percent Auto 20.2 % (25-40); Mean Corpuscular HGB Conc 33.8 % (30-36); Mean Corpuscular Hemoglobin 28.9 PG (26-34); Mean Corpuscular Volume 85.4 fL (80-100); Monocytes Absolute Auto 800 /uL (0-900); Monocytes Percent Auto 6.7 % (3-14); Neutrophils Absolute Auto 8300 /uL (1500-7000); Neutrophils Percent Auto 72.6 % (50-75); Platelet Count 248 X10^3/uL (150-400); Red Blood Cell Count 5.25 X10^6/uL (4.0-5.2); Red Cell Distribution Width 14.6 % (11.6-14.8); White Blood Cell Count 11.5 X10^3/uL (4.5-11.0)
[2018-12-25 14:50] LABS: Influenza A and B by PCR Rapid Negative (Negative)
[2018-12-25 15:51] VITALS: BP 194/130; PULSE 107; RESP 99; O2SAT 19
== END 2018-12-25 15:54 | disposition home or self-care (01) ==
PROVIDERS: Emergency Provider Nurse Practitioner Family; Family Provider Internal Medicine; PCP Internal Medicine
DX: G43.909 Migraine, unspecified, not intractable, without status migrainosus (principal)
CPT/HCPCS: 36591; 70450; 85025; 87400; 96361; 96374; 96375; 99283; 99284; J0780; J1200; J1885; J2270

== ENCOUNTER 2018-12-29 11:32 | Emergency (ER) | payer OTHER, SELFPAY ==
[2018-12-29] VITALS (13 sets, daily range): BP systolic 182–232; BP diastolic 88–123; PULSE 75–105; RESP 15–18; TEMP 36.8; O2SAT 95–99; BMI 40.6
--- NOTE | 2018-12-29 13:09 | ED.NAVMDI ---
HPI - Nausea/Vomiting/Diarrhea <ARABELLA Stone - Last Filed: 12/29/18 22:34> General Chief complaint: Nausea/Vomiting/Diarrhea Stated complaint: nausea, vomitting, dehydrated Time Seen by Provider: 12/29/18 13:09 Source: patient Mode of arrival: ambulatory Limitations: no limitations History of Present Illness HPI Narrative: 63 year old dfemale here for complaint of headache and nausea and vomiting over the last few days. She was seen here in the emergency room approximately 5 days ago by me and had a workup that was unremarkable. Her blood pressure however was felt that part of this reason was due to the nausea vomiting her not being able to take her chronic pain medications. She was feeling like she was having withdrawal symptoms. She was prescribed Zofran to help with nausea vomiting and facilitate good hydration. She states that she did not fill the medication due to cost. She reports that she has had nausea vomiting over the past couple of days and has not been able to take her medications as prescribed. Headache still persists. No known fever. She has had nausea vomiting along with a couple episodes of diarrhea. No chest pain. No shortness of breath. She is ambulatory into the emergency room. She was sent here by primary care provider to be hydrated no stressors or relievers of 1st symptoms. Related Data Home Medications Medication Instructions Recorded Confirmed Ocuvite 1 tab PO DAILY 12/29/18 12/29/18 albuterol sulfate 2 puff INHALATION Q4H PRN 12/29/18 12/29/18 brinzolamide-brimonidine 1 drp OPHTHALMIC (EYE) BID 12/29/18 12/29/18 [Simbrinza] citalopram 40 mg PO DAILY 12/29/18 12/29/18 clonidine HCl 0.3 mg PO BID 12/29/18 12/29/18 diazepam 5 mg PO BID PRN 12/29/18 12/29/18 latanoprost 1 drp OPHTHALMIC (EYE) DAILY 12/29/18 12/29/18 losartan-hydrochlorothiazide 1 tab PO DAILY 12/29/18 12/29/18 magnesium 200 mg PO DAILY 12/29/18 12/29/18 meclizine 25 mg PO DAILY PRN 12/29/18 12/29/18 metformin 500 mg PO DAILY 12/29/18 12/29/18 metoclopramide HCl 10 mg PO DAILY PRN 12/29/18 12/29/18 morphine 15 mg PO Q8H PRN 12/29/18 12/29/18 omeprazole 20 mg PO Q12H 12/29/18 12/29/18 ropinirole 0.5 mg PO BEDTIME 12/29/18 12/29/18 triamcinolone acetonide 1 applic TOPICAL BID 12/29/18 12/29/18 Previous Rx's Medication Instructions Recorded ondansetron 4 mg PO BID-TID PRN #10 tab 12/25/18 Allergies Allergy/AdvReac Type Severity Reaction Status Date / Time Beta-Blockers Allergy Unknown Verified 12/29/18 11:38 (Beta-Adrenergic Bloc Corticosteroids Allergy Unknown Verified 12/29/18 11:38 (Glucocorticoids) gabapentin Allergy Unknown CHRONIC Verified 12/29/18 11:38 NUMBNESS TO FACE/MOUTH neomycin Allergy Unknown Verified 12/29/18 11:38 zolpidem AdvReac Intermediate CONFUSION/A Verified 12/29/18 11:38 MNESIA Review of Systems <ARABELLA Stone - Last Filed: 12/29/18 22:34> Constitutional Denies chills, Denies fever(s), Reports headache(s), Denies lethargy and Denies weakness Eyes Denies change in vision, Denies eye discharge, Denies irritation and Denies loss of vision ENT Ears, Nose, Mouth, and Throat: Reports headache(s) Cardiovascular Denies chest pain, Denies irregular heart rhythm, Denies lightheadedness, Denies palpitations, Denies dyspnea, Denies dyspnea on exertion and Denies orthopnea Respiratory Denies cough, Denies dyspnea, Denies dyspnea on exertion and Denies wheezing Gastrointestinal Gastrointestinal: Reports nausea and Reports vomiting Integumentary/Breasts Denies pruritus, Denies erythema, Denies rash and Denies wounds Neurologic Denies confusion, Reports headache(s), Denies loss of vision and Denies weakness Psychiatric Denies anxiety, Denies confusion, Denies depression, Denies homicidal ideation and Denies suicidal ideation Endocrine Denies palpitations Allergic/Immunologic Denies wheezing PFSH <ARABELLA Stone - Last Filed: 12/29/18 22:34> Social History Smoking Status: Former smoker Exam <ARABELLA Stone - Last Filed: 12/29/18 22:34> Initial Vital Signs Initial Vital Signs: Vital Signs Pulse Rate 105 H 12/29/18 11:38 Respiratory Rate 16 12/29/18 11:38 Pulse Oximetry 99 12/29/18 11:38 Const General: cooperative and well developed Nutritional Appearance: well nourished Orientation: alert, awake, oriented x3 and not confused HENMT Mouth: moist mucous membranes Eyes Conjunctivae: conjunctivae normal Sclera: sclerae normal Pupils: PERRL EOM: EOM intact bilaterally Resp Effort & Inspection: normal respiratory effort, able to speak in complete sentences, no respiratory distress and no use of accessory muscles Auscultation: clear to auscultation bilaterally, no rales, no rhonchi and no wheezes Cardio Rate: regular rate Rhythm: regular rhythm Heart Sounds: no click, no gallops, no murmurs and no rubs Pulses: normal peripheral pulses Skin General: no rashes or lesions noted, No jaundice and No petechiae Neuro General: alert, oriented x3, gait normal and no focal motor deficits Speech: speech normal <Roma Sandhu DO - Last Filed: 12/31/18 11:24> Initial Vital Signs Initial Vital Signs: Vital Signs Pulse Rate 105 H 12/29/18 11:38 Respiratory Rate 16 12/29/18 11:38 Pulse Oximetry 99 12/29/18 11:38 Course <ARABELLA Stone - Last Filed: 12/29/18 22:34> Orders Ordered: Discontinued Medications Hydralazine HCl (Apresoline) 10 mg IV NOW ONE Stop: 12/29/18 17:37 Last Admin: 12/29/18 19:10 Dose: 10 mg Hydrochlorothiazide (Hydrochlorothiazide) 25 mg PO NOW ONE Stop: 12/29/18 16:42 Last Admin: 12/29/18 17:17 Dose: 25 mg Sodium Chloride (Normal Saline 0.9%) 1,000 mls @ 1,000 mls/hr IV BOLUS ONE Stop: 12/29/18 15:22 Last Infusion: 12/29/18 15:34 Dose: 0 mls/hr Admin: 12/29/18 14:24 Dose: 1,000 mls/hr Losartan Potassium (Cozaar) 100 mg PO NOW ONE Stop: 12/29/18 16:42 Last Admin: 12/29/18 17:17 Dose: 100 mg Morphine Sulfate (Morphine) 4 mg IV NOW ONE Stop: 12/29/18 14:01 Last Admin: 12/29/18 14:22 Dose: 4 mg Morphine Sulfate (Morphine) 4 mg IV NOW ONE Stop: 12/29/18 16:44 Last Admin: 12/29/18 17:16 Dose: 4 mg Ondansetron HCl (Zofran) 4 mg IV NOW ONE Stop: 12/29/18 14:01 Last Admin: 12/29/18 14:23 Dose: 4 mg Ondansetron HCl (Zofran) 4 mg IV NOW ONE Stop: 12/29/18 16:24 Last Admin: 12/29/18 16:26 Dose: 4 mg Vital Signs - 8 hr 12/29/18 15:00 12/29/18 15:30 12/29/18 16:29 Temperature Pulse Rate 75 78 88 Respiratory Rate 16 16 18 Blood Pressure Blood Pressure [Right Arm] 216/102 H 212/99 H 232/115 H Pulse Oximetry 99 98 96 12/29/18 17:17 12/29/18 18:49 12/29/18 19:10 Temperature Pulse Rate 97 H 85 80 Respiratory Rate 15 Blood Pressure 209/123 H 215/107 H Blood Pressure [Right Arm] 200/96 H Pulse Oximetry 95 12/29/18 19:50 12/29/18 20:12 12/29/18 20:20 Temperature 98.2 F Pulse Rate 93 H 93 H Respiratory Rate 18 Blood Pressure 182/88 H Blood Pressure [Right Arm] 190/91 H Pulse Oximetry 97 <Roma Sandhu, - Last Filed: 12/31/18 11:24> Orders Ordered: Discontinued Medications Hydralazine HCl (Apresoline) 10 mg IV NOW ONE Stop: 12/29/18 17:37 Last Admin: 12/29/18 19:10 Dose: 10 mg Hydrochlorothiazide (Hydrochlorothiazide) 25 mg PO NOW ONE Stop: 12/29/18 16:42 Last Admin: 12/29/18 17:17 Dose: 25 mg Sodium Chloride (Normal Saline 0.9%) 1,000 mls @ 1,000 mls/hr IV BOLUS ONE Stop: 12/29/18 15:22 Last Infusion: 12/29/18 15:34 Dose: 0 mls/hr Admin: 12/29/18 14:24 Dose: 1,000 mls/hr Losartan Potassium (Cozaar) 100 mg PO NOW ONE Stop: 12/29/18 16:42 Last Admin: 12/29/18 17:17 Dose: 100 mg Morphine Sulfate (Morphine) 4 mg IV NOW ONE Stop: 12/29/18 14:01 Last Admin: 12/29/18 14:22 Dose: 4 mg Morphine Sulfate (Morphine) 4 mg IV NOW ONE Stop: 12/29/18 16:44 Last Admin: 12/29/18 17:16 Dose: 4 mg Ondansetron HCl (Zofran) 4 mg IV NOW ONE Stop: 12/29/18 14:01 Last Admin: 12/29/18 14:23 Dose: 4 mg Ondansetron HCl (Zofran) 4 mg IV NOW ONE Stop: 12/29/18 16:24 Last Admin: 12/29/18 16:26 Dose: 4 mg Vital Signs - 8 hr 12/29/18 15:00 12/29/18 15:30 12/29/18 16:29 Temperature Pulse Rate 75 78 88 Respiratory Rate 16 16 18 Blood Pressure Blood Pressure [Right Arm] 216/102 H 212/99 H 232/115 H Pulse Oximetry 99 98 96 12/29/18 17:17 12/29/18 18:49 12/29/18 19:10 Temperature Pulse Rate 97 H 85 80 Respiratory Rate 15 Blood Pressure 209/123 H 215/107 H Blood Pressure [Right Arm] 200/96 H Pulse Oximetry 95 12/29/18 19:50 12/29/18 20:12 12/29/18 20:20 Temperature 98.2 F Pulse Rate 93 H 93 H Respiratory Rate 18 Blood Pressure 182/88 H Blood Pressure [Right Arm] 190/91 H Pulse Oximetry 97 MDM - Nausea/Vomiting/Diarrhea <ARABELLA Stone - Last Filed: 12/29/18 22:34> Lab Data Result diagrams: 12/29/18 14:05 12/29/18 14:05 Lab Results 12/29/18 12/29/18 12/29/18 Range/Units 14:05 14:05 14:05 WBC 7.5 (4.5-11.0) X10^3/uL RBC 5.11 (4.0-5.2) X10^6/uL Hgb 15.0 (12.0-16.0) g/dL Hct 43.6 (36-46) % MCV 85.3 (80-100) fL MCH 29.3 (26-34) PG MCHC 34.3 (30-36) % RDW 14.7 (11.6-14.8) % Plt Count 95 L (150-400) X10^3/uL Neut % (Auto) 75.9 H (50-75) % Lymph % (Auto) 17.9 L (25-40) % [place] % (Auto) 4.9 (3-14) % Eos % (Auto) 0.8 L (2-4) % Baso % (Auto) 0.5 (0-2) % Neut # (Auto) 5700 (6546-1417) /uL Lymph # (Auto) 1300 (4818-1298) /uL [place] # (Auto) 400 (0-900) /uL Eos # (Auto) 100 (0-450) /uL Baso # (Auto) 0 (0-100) /uL Sodium 140 (137-145) mmol/L Potassium 3.8 (3.4-5.1) mmol/L Chloride 99 (98-107) mmol/L Carbon Dioxide 27 (22-32) mmol/L BUN 13 (7-17) mg/dL Creatinine 0.60 (0.52-1.04) mg/dL Estimated GFR > 60.0 (>60) mL/min BUN/Creatinine Ratio 21.7 (6-22) Glucose 138 H (80-110) mg/dL Calcium 9.9 (8.4-10.2) mg/dL Total Bilirubin 1.1 (0.2-1.3) mg/dL AST 27 (14-36) IU/L ALT 21 (9-52) IU/L Alkaline Phosphatase 58 (38-126) U/L Troponin I (0.01-0.034) ng/mL Total Protein 8.0 (6.3-8.2) g/dL Albumin 4.7 (3.5-5.0) g/dL Globulin 3.3 (1.7-4.1) g/dL Albumin/Globulin Ratio 1.4 (1.0-2.8) Procalcitonin < 0.05 (<0.5) ng/mL Urine RBC (0-5/HPF) Urine WBC (0-5/HPF) Ur Squamous Epith Cells Amorphous Sediment Urine Bacteria (None) Ur Culture Indicated? Influenza A & B (PCR) (Negative) 12/29/18 12/29/18 12/29/18 Range/Units 14:50 15:53 Unknown WBC (4.5-11.0) X10^3/uL RBC (4.0-5.2) X10^6/uL Hgb (12.0-16.0) g/dL Hct (36-46) % MCV (80-100) fL MCH (26-34) PG MCHC (30-36) % RDW (11.6-14.8) % Plt Count (150-400) X10^3/uL Neut % (Auto) (50-75) % Lymph % (Auto) (25-40) % [place] % (Auto) (3-14) % Eos % (Auto) (2-4) % Baso % (Auto) (0-2) % Neut # (Auto) (2924-9577) /uL Lymph # (Auto) (4364-3288) /uL [place] # (Auto) (0-900) /uL Eos # (Auto) (0-450) /uL Baso # (Auto) (0-100) /uL Sodium (137-145) mmol/L Potassium (3.4-5.1) mmol/L Chloride (98-107) mmol/L Carbon Dioxide (22-32) mmol/L BUN (7-17) mg/dL Creatinine (0.52-1.04) mg/dL Estimated GFR (>60) mL/min BUN/Creatinine Ratio (6-22) Glucose (80-110) mg/dL Calcium (8.4-10.2) mg/dL Total Bilirubin (0.2-1.3) mg/dL AST (14-36) IU/L ALT (9-52) IU/L Alkaline Phosphatase (38-126) U/L Troponin I < 0.012 (0.01-0.034) ng/mL Total Protein (6.3-8.2) g/dL Albumin (3.5-5.0) g/dL Globulin (1.7-4.1) g/dL Albumin/Globulin Ratio (1.0-2.8) Procalcitonin (<0.5) ng/mL Urine RBC None seen (0-5/HPF) Urine WBC 5-10/hpf H (0-5/HPF) Ur Squamous Epith Cells 0-1 /hpf Amorphous Sediment 1+ Urine Bacteria Occasional (0-1) (None) Ur Culture Indicated? Specimen cultured Influenza A & B (PCR) Negative (Negative) Urine Dip Bedside Urine Glucose Negative Bedside Urine Bilirubin - Negative Bedside Urine Ketone - Negative Urine Specific [place] 1.015 Bedside Urine Occult Blood - Negative Bedside Urine pH 6.0 Bedside Urine Protein +/- 15 Bedside Urine Urobilinogen +/- 1mg Bedside Urine Nitrite - Negative Bedside Urine Leukocytes +/- [address] scan - head: Radiologist's impression: [address] [id number] [address] Scan Report Signed Patient: Arely Chauhan AMR#: [id number] : 5Acct:[id number] Age/Sex: 63 / FDate of Service: 12/29/18 Loc: ED Accession Number: [id number] Procedure: CT head/brain wo con Ordering Provider: Trey Diana PROCEDURE: CT HEAD/BRAIN WO CON INDICATIONS: Headache with elevated blood pressure TECHNIQUE: Noncontrast 4.5 mm thick angled axial sections acquired from the foramen magnum to the vertex, with coronal and sagittal reformats. For radiation dose reduction, the following was used: automated exposure control, adjustment of mA and/or kV according to patient size. COMPARISON: [facility], CT, CT HEAD/BRAIN WO CON, 12/25/2018, 12:34. FINDINGS: Image quality: Excellent. CSF spaces: Basal cisterns are patent. No extra-axial fluid collections. The ventricles are symmetric in size and shape. Brain: No intracranial bleeds or masses. There is cerebral volume loss for age, with resultant ventricular and sulcal prominence. There are periventricular and deep white matter chronic small vessel ischemic changes. There is intracranial internal carotid artery atherosclerosis. Skull and face: Calvarium and visualized facial bones appear intact, without suspicious lesions. Sinuses: Visualized sinuses and mastoids are clear. IMPRESSION: No acute intracranial process Dictated by: Musa Lu M.D. on 12/29/2018 at 19:29 Approved by: Musa Lu M.D. on 12/29/2018 at 19:30 Chest x-ray: Radiologist's impression: [address] [address] XRay Report Signed Patient: Arely Chauhan AMR#: [id number] : 5Acct:[id number] Age/Sex: 63 / FDate of Service: 12/29/18 Loc: ED Accession Number: [id number] Procedure: XR chest 1V Ordering Provider: Trey Diana PROCEDURE: XR CHEST 1V INDICATIONS: Elevated blood pressure TECHNIQUE: One view of the chest was acquired. COMPARISON: [facility], , CHEST 2 VIEW, 03/10/2014, 10:43. FINDINGS: Surgical changes and devices: None. Lungs and pleura: Lungs are clear. No pleural effusions or pneumothorax. Mediastinum: Mediastinal contours appear normal. Heart size is normal. Bones and chest wall: No suspicious bony lesions. Overlying soft tissues appear unremarkable. IMPRESSION: No acute disease. Dictated by: Musa Lu M.D. on 12/29/2018 at 17:42 Approved by: Musa Lu M.D. on 12/29/2018 at 17:42 ECG Data Interpretation: EKG shows normal sinus rhythm with no ST elevation or depression. No ectopy. Ventricular rate of 81. Pr interval of 208. QRS duration 94. QTC of 439. MDM Narrative Medical decision making narrative: CBC was obtained and was unremarkable. Chemistry panel was obtained and also also unremarkable. Cardiac enzymes were obtained and were negative. Procalcitonin was negative. She was given fluids and nausea medicine in the emergency room. urinalysis shows WBCs patient denies having any symptoms at this timeframe. Urine culture is pending. No emergent causes of her symptoms are found today. Believe the combination between migraine headache nausea vomiting and not being able to take her medications as prescribed has compounded her symptoms. Suspect there may be some withdrawal symptoms as well due to not being on take her pain medication. And may be causing a worsening migraine. She was able to tolerate p.o. intake here in the emergency room. She was encouraged to take her medications as prescribed along with the Zofran for the nausea vomiting. Blood pressure was significantly elevated today in the emergency room. CT of the head was obtained due to the headache and increased blood pressure again today and was negative. Chest x-ray was also negative for any acute findings. No signs of organ damage. She was given her normal blood pressure medications orally in the emergency room along with hydralazine IV. And caused her blood pressure to normalize some Follow up with primary care provider next couple days for re-evaluation. For any worsening symptoms return to the emergency room. <Roma Sandhu, - Last Filed: 12/31/18 11:24> Lab Data Lab Results 12/29/18 12/29/18 12/29/18 Range/Units 14:05 14:05 14:05 WBC 7.5 (4.5-11.0) X10^3/uL RBC 5.11 (4.0-5.2) X10^6/uL Hgb 15.0 (12.0-16.0) g/dL Hct 43.6 (36-46) % MCV 85.3 (80-100) fL MCH 29.3 (26-34) PG MCHC 34.3 (30-36) % RDW 14.7 (11.6-14.8) % Plt Count 95 L (150-400) X10^3/uL Neut % (Auto) 75.9 H (50-75) % Lymph % (Auto) 17.9 L (25-40) % [place] % (Auto) 4.9 (3-14) % Eos % (Auto) 0.8 L (2-4) % Baso % (Auto) 0.5 (0-2) % Neut # (Auto) 5700 (2335-9712) /uL Lymph # (Auto) 1300 (2421-0163) /uL [place] # (Auto) 400 (0-900) /uL Eos # (Auto) 100 (0-450) /uL Baso # (Auto) 0 (0-100) /uL Sodium 140 (137-145) mmol/L Potassium 3.8 (3.4-5.1) mmol/L Chloride 99 (98-107) mmol/L Carbon Dioxide 27 (22-32) mmol/L BUN 13 (7-17) mg/dL Creatinine 0.60 (0.52-1.04) mg/dL Estimated GFR > 60.0 (>60) mL/min BUN/Creatinine Ratio 21.7 (6-22) Glucose 138 H (80-110) mg/dL Calcium 9.9 (8.4-10.2) mg/dL Total Bilirubin 1.1 (0.2-1.3) mg/dL AST 27 (14-36) IU/L ALT 21 (9-52) IU/L Alkaline Phosphatase 58 (38-126) U/L Troponin I (0.01-0.034) ng/mL Total Protein 8.0 (6.3-8.2) g/dL Albumin 4.7 (3.5-5.0) g/dL Globulin 3.3 (1.7-4.1) g/dL Albumin/Globulin Ratio 1.4 (1.0-2.8) Procalcitonin < 0.05 (<0.5) ng/mL Urine RBC (0-5/HPF) Urine WBC (0-5/HPF) Ur Squamous Epith Cells Amorphous Sediment Urine Bacteria (None) Ur Culture Indicated? Influenza A & B (PCR) (Negative) 12/29/18 12/29/18 12/29/18 Range/Units 14:50 15:53 Unknown WBC (4.5-11.0) X10^3/uL RBC (4.0-5.2) X10^6/uL Hgb (12.0-16.0) g/dL Hct (36-46) % MCV (80-100) fL MCH (26-34) PG MCHC (30-36) % RDW (11.6-14.8) % Plt Count (150-400) X10^3/uL Neut % (Auto) (50-75) % Lymph % (Auto) (25-40) % [place] % (Auto) (3-14) % Eos % (Auto) (2-4) % Baso % (Auto) (0-2) % Neut # (Auto) (0547-2805) /uL Lymph # (Auto) (8251-6951) /uL [place] # (Auto) (0-900) /uL Eos # (Auto) (0-450) /uL Baso # (Auto) (0-100) /uL Sodium (137-145) mmol/L Potassium (3.4-5.1) mmol/L Chloride (98-107) mmol/L Carbon Dioxide (22-32) mmol/L BUN (7-17) mg/dL Creatinine (0.52-1.04) mg/dL Estimated GFR (>60) mL/min BUN/Creatinine Ratio (6-22) Glucose (80-110) mg/dL Calcium (8.4-10.2) mg/dL Total Bilirubin (0.2-1.3) mg/dL AST (14-36) IU/L ALT (9-52) IU/L Alkaline Phosphatase (38-126) U/L Troponin I < 0.012 (0.01-0.034) ng/mL Total Protein (6.3-8.2) g/dL Albumin (3.5-5.0) g/dL Globulin (1.7-4.1) g/dL Albumin/Globulin Ratio (1.0-2.8) Procalcitonin (<0.5) ng/mL Urine RBC None seen (0-5/HPF) Urine WBC 5-10/hpf H (0-5/HPF) Ur Squamous Epith Cells 0-1 /hpf Amorphous Sediment 1+ Urine Bacteria Occasional (0-1) (None) Ur Culture Indicated? Specimen cultured Influenza A & B (PCR) Negative (Negative) Urine Dip Bedside Urine Glucose Negative Bedside Urine Bilirubin - Negative Bedside Urine Ketone - Negative Urine Specific [place] 1.015 Bedside Urine Occult Blood - Negative Bedside Urine pH 6.0 Bedside Urine Protein +/- 15 Bedside Urine Urobilinogen +/- 1mg Bedside Urine Nitrite - Negative Bedside Urine Leukocytes +/- 15 Esterase Discharge Plan Departure Patient Disposition: Home Clinical Impression: Migraine Qualifiers: Migraine type: unspecified Status migrainosus presence: without status migrainosus Intractability: not intractable Qualified Code(s): G43.909 - Migraine, unspecified, not intractable, without status migrainosus Discharge Date/Time: 12/29/18 20:20 Interventions: ED Discharge Assessment Last Done: 12/29/18 20:20 Instructions: DI for Dehydration -- Adult Activity Restrictions/Additional Instructions: Believe that nausea vomiting secondary to the migraine may be causing increased blood pressure and also worsening headache a due to dehydration and not being able to take medications. This may also be exacerbated by not being able to take chronic pain medications. He uses Zofran as prescribed to help with the nausea vomiting. Plenty of fluids and rest. Follow up with primary care provider the next couple days for re-evaluation. For any worsening symptoms return to the emergency room. Prescriptions: No Action ondansetron 4 mg tablet,disintegrating 4 mg PO BID-TID PRN (Reason: nausea and vomiting) Qty: 10 RF: 0 metformin 500 mg Tablet 500 mg PO DAILY RF: 0 latanoprost 0.005 % Drops 1 drp ophthalmic (eye) DAILY RF: 0 citalopram 40 mg Tablet 40 mg PO DAILY RF: 0 clonidine HCl 0.3 mg tablet 0.3 mg PO BID RF: 0 losartan-hydrochlorothiazide 100-25 mg tablet 1 tab PO DAILY RF: 0 meclizine 25 mg Tablet 25 mg PO DAILY PRN (Reason: Vertigo) RF: 0 omeprazole 20 mg Capsule,Delayed Release(Dr/Ec) 20 mg PO Q12H RF: 0 albuterol sulfate 90 mcg/actuation Hfa Aerosol Inhaler 2 puff INHALATION Q4H PRN (Reason: Shortness Of Breath) RF: 0 morphine 15 mg Tablet 15 mg PO Q8H PRN (Reason: pain) RF: 0 diazepam 5 mg tablet 5 mg PO BID PRN (Reason: Anxiety) RF: 0 metoclopramide HCl 10 mg Tablet 10 mg PO DAILY PRN (Reason: Nausea) RF: 0 magnesium 200 mg Tablet 200 mg PO DAILY RF: 0 triamcinolone acetonide 0.05 % Ointment 1 applic topical BID RF: 0 Simbrinza 1-0.2 % Drops,Suspension 1 drp ophthalmic (eye) BID RF: 0 Ocuvite 1 tab PO DAILY RF: 0 ropinirole 0.5 mg tablet 0.5 mg PO BEDTIME RF: 0 Referrals: Jesus Almanzar MD [Primary Care Provider] - <Roma Sandhu DO - Last Filed: 12/31/18 11:24> Cosign ED Attending Cosignature Attestation: I was immediately available in the department for consultation, Patient's case was discussed. She has not been taking her blood pressure medications for mid-level provider. Recommend getting head CT she has elevated systolic and diastolic pressures. She was given losartan with hydrochlorothiazide here in the ER but is this takes some time to be effective was also recommended to give a dose of hydralazine as she does not tolerate beta-blockers For similar medications. Patient's head CT was negative, lab work was negative, there is no signs of end-organ damage. Patient brochure improved and plan for her to continue to take her blood pressure medications. This documentation has been reviewed and I agree with assessment and plan. Supervised by Roma Sandhu DO
--- NOTE | 2018-12-29 13:55 | PC.NURSE ---
pt reports, +flu 2 weeks ago, unknown fever for 4 days with nausea, vomiting too numerous to count, denies blood, also with diarrhea x2. pt concern for dehydration, skin tinting. pt had rx for zofran, unable to fill, due to cost, too expensive pt called dr Sharp and she was sent here.
[2018-12-29] MEDS: MORPHINE 4 MG/ML INJ IV ×2 (14:22→17:16)
[2018-12-29] MEDS: ONDANSETRON 4 MG/2 ML INJ IV ×2 (14:23→16:26)
[2018-12-29] MEDS: SODIUM CHLORIDE 0.9% 1,000 ML 1000 ML IV (14:24)
[2018-12-29 14:29] LABS: Add Manual Diff / Slide Review NO; Basophils Absolute Auto 0 /uL (0-100); Basophils Percent Auto 0.5 % (0-2); Eosinophils Absolute Auto 100 /uL (0-450); Eosinophils Percent Auto 0.8 % (2-4); Hematocrit 43.6 % (36-46); Lymphocytes Absolute Auto 1300 /uL (1100-4500); Lymphocytes Percent Auto 17.9 % (25-40); Mean Corpuscular HGB Conc 34.3 % (30-36); Mean Corpuscular Hemoglobin 29.3 PG (26-34); Mean Corpuscular Volume 85.3 fL (80-100); Monocytes Absolute Auto 400 /uL (0-900); Monocytes Percent Auto 4.9 % (3-14); Neutrophils Absolute Auto 5700 /uL (1500-7000); Neutrophils Percent Auto 75.9 % (50-75); Platelet Count 95 X10^3/uL (150-400); Red Blood Cell Count 5.11 X10^6/uL (4.0-5.2); Red Cell Distribution Width 14.7 % (11.6-14.8); White Blood Cell Count 7.5 X10^3/uL (4.5-11.0)
[2018-12-29 15:15] LABS: Alanine Aminotransferase 21 IU/L (9-52); Albumin 4.7 g/dL (3.5-5.0); Albumin Globulin Ratio 1.4 (1.0-2.8); Alkaline Phosphatase 58 U/L (38-126); Aspartate Aminotransferase 27 IU/L (14-36); BUN Creatinine Ratio 21.7 (6-22); Bilirubin Total 1.1 mg/dL (0.2-1.3); Blood Urea Nitrogen 13 mg/dL (7-17); Calcium 9.9 mg/dL (8.4-10.2); Carbon Dioxide 27 mmol/L (22-32); Chloride 99 mmol/L (98-107); Estimated Glomerular Filt Rate > 60.0 mL/min (>60); Globulin 3.3 g/dL (1.7-4.1); Glucose 138 mg/dL (80-110); HEMOLYSIS 44 (0-50); Potassium 3.8 mmol/L (3.4-5.1); Sodium 140 mmol/L (137-145)
[2018-12-29 15:19] LABS: Procalcitonin < 0.05 ng/mL (<0.5)
--- NOTE | 2018-12-29 16:15 | PC.NURSE ---
pt reports, able to void and spit up a little , still feeling queezy, headache still at 7/10 , provider made aware, no need for 2nd iv fluid, may give zofran, no morphine.
[2018-12-29 16:20] LABS: Influenza A and B by PCR Rapid Negative (Negative)
[2018-12-29 16:34] LABS: RBC Urine None Seen (0-5/HPF)
[2018-12-29 16:48] LABS: Amorphous Sediment Urine 1+; Bacteria Urine Occasional (0-1); Culture Indicated Urine Specimen Cultured; Squamous Epithelial Cell Urine 0-1 /HPF; WBC Urine 5-10/HPF (0-5/HPF)
[2018-12-29] MEDS: LOSARTAN 50 MG TABLET 100 MG PO (17:17)
[2018-12-29] MEDS: hydroCHLOROthiazide 25 MG TABLET PO (17:17)
--- NOTE | 2018-12-29 17:27 | DI.RAD.S_ITS ---
PROCEDURE: XR CHEST 1V INDICATIONS: Elevated blood pressure TECHNIQUE: One view of the chest was acquired. COMPARISON: [facility], , CHEST 2 VIEW, 03/10/2014, 10:43. FINDINGS: Surgical changes and devices: None. Lungs and pleura: Lungs are clear. No pleural effusions or pneumothorax. Mediastinum: Mediastinal contours appear normal. Heart size is normal. Bones and chest wall: No suspicious bony lesions. Overlying soft tissues appear unremarkable. IMPRESSION: No acute disease. Dictated by: Musa Lu M.D. on 12/29/2018 at 17:42 Approved by: Musa Lu M.D. on 12/29/2018 at 17:42
[2018-12-29 18:05] LABS: Troponin I < 0.012 ng/mL (0.01-0.034)
--- NOTE | 2018-12-29 19:06 | DI.CT.S_ITS ---
PROCEDURE: CT HEAD/BRAIN WO CON INDICATIONS: Headache with elevated blood pressure TECHNIQUE: Noncontrast 4.5 mm thick angled axial sections acquired from the foramen magnum to the vertex, with coronal and sagittal reformats. For radiation dose reduction, the following was used: automated exposure control, adjustment of mA and/or kV according to patient size. COMPARISON: [facility], CT, CT HEAD/BRAIN WO CON, 12/25/2018, 12:34. FINDINGS: Image quality: Excellent. CSF spaces: Basal cisterns are patent. No extra-axial fluid collections. The ventricles are symmetric in size and shape. Brain: No intracranial bleeds or masses. There is cerebral volume loss for age, with resultant ventricular and sulcal prominence. There are periventricular and deep white matter chronic small vessel ischemic changes. There is intracranial internal carotid artery atherosclerosis. Skull and face: Calvarium and visualized facial bones appear intact, without suspicious lesions. Sinuses: Visualized sinuses and mastoids are clear. IMPRESSION: No acute intracranial process Dictated by: Musa Lu M.D. on 12/29/2018 at 19:29 Approved by: Musa Lu M.D. on 12/29/2018 at 19:30
[2018-12-29] MEDS: HYDRALAZINE 20 MG/ML VIAL 10 MG IV (19:10)
== END 2018-12-29 20:20 | disposition home or self-care (01) ==
PROVIDERS: Emergency Provider Nurse Practitioner Family; Family Provider Internal Medicine; PCP Internal Medicine
DX: G43.909 Migraine, unspecified, not intractable, without status migrainosus (principal); E86.0 Dehydration
CPT/HCPCS: 36591; 70450; 71045; 80053; 81003; 81015; 84145; 84484; 85025; 87086; 87400; 93005; 96361; 96374; 96375; 96376; 99285; J0360; J2270; J2405

== ENCOUNTER 2018-12-31 19:51 | Emergency (ER) | payer OTHER, SELFPAY ==
[2018-12-31 20:14] VITALS: BP 163/92; PULSE 110; RESP 17; TEMP 37; O2SAT 97
[2019-01-01 00:23] VITALS: BP 152/82; PULSE 88; RESP 18; O2SAT 95
--- NOTE | 2019-01-01 00:33 | ED.HA ---
HPI - Headache General Chief Complaint: Headache Stated Complaint: vomiting,migraines Time Seen by Provider: 01/01/19 00:32 Source: patient and old records reviewed Mode of arrival: ambulatory Limitations: no limitations History of Present Illness HPI Narrative: The patient is a 63-year-old female presenting with headache. She has been seen evaluated in the ED 4 times this week. She has had CT scans blood work. Today she says she is not sure she actually had any improvement, if she does is only temporary. Today she thought she had some trouble finding words of but no unilateral weakness. She has improved since then. She now and just like her pain to get better. She has no visual changes light does intensify her headache. MD Complaint: headache Quality: aching Related Data Home Medications Medication Instructions Recorded Confirmed Ocuvite 1 tab PO DAILY 12/29/18 12/29/18 albuterol sulfate 2 puff INHALATION Q4H PRN 12/29/18 12/29/18 brinzolamide-brimonidine 1 drp OPHTHALMIC (EYE) BID 12/29/18 12/29/18 [Simbrinza] citalopram 40 mg PO DAILY 12/29/18 12/29/18 clonidine HCl 0.3 mg PO BID 12/29/18 12/29/18 diazepam 5 mg PO BID PRN 12/29/18 12/29/18 latanoprost 1 drp OPHTHALMIC (EYE) DAILY 12/29/18 12/29/18 losartan-hydrochlorothiazide 1 tab PO DAILY 12/29/18 12/29/18 magnesium 200 mg PO DAILY 12/29/18 12/29/18 meclizine 25 mg PO DAILY PRN 12/29/18 12/29/18 metformin 500 mg PO DAILY 12/29/18 12/29/18 metoclopramide HCl 10 mg PO DAILY PRN 12/29/18 12/29/18 morphine 15 mg PO Q8H PRN 12/29/18 12/29/18 omeprazole 20 mg PO Q12H 12/29/18 12/29/18 ropinirole 0.5 mg PO BEDTIME 12/29/18 12/29/18 triamcinolone acetonide 1 applic TOPICAL BID 12/29/18 12/29/18 Previous Rx's Medication Instructions Recorded ondansetron 4 mg PO BID-TID PRN #10 tab 12/25/18 Allergies Allergy/AdvReac Type Severity Reaction Status Date / Time Beta-Blockers Allergy Unknown Verified 12/29/18 11:38 (Beta-Adrenergic Bloc Corticosteroids Allergy Unknown Verified 12/29/18 11:38 (Glucocorticoids) gabapentin Allergy Unknown CHRONIC Verified 12/29/18 11:38 NUMBNESS TO FACE/MOUTH neomycin Allergy Unknown Verified 12/29/18 11:38 zolpidem AdvReac Intermediate CONFUSION/A Verified 12/29/18 11:38 MNESIA Review of Systems Review of Systems ROS Unobtainable: All systems reviewed & are unremarkable except as noted in HPI and below Constitutional Denies chills, Denies fever(s), Reports headache(s), Denies lethargy and Denies weakness ENT Ears, Nose, Mouth, and Throat: Reports headache(s) Cardiovascular Denies chest pain, Denies irregular heart rhythm, Denies lightheadedness, Denies palpitations, Denies dyspnea, Denies dyspnea on exertion and Denies orthopnea Respiratory Denies cough, Denies dyspnea, Denies dyspnea on exertion and Denies wheezing Gastrointestinal Gastrointestinal: Denies abdominal pain, Denies change in bowel habits, Denies diarrhea, Denies nausea and Denies vomiting Musculoskeletal Denies back pain, Denies muscle weakness, Denies numbness and Denies tingling Integumentary/Breasts Denies pruritus, Denies erythema, Denies rash and Denies wounds Neurologic Reports as per HPI, Denies confusion, Reports headache(s), Denies numbness, Denies tingling and Denies weakness Psychiatric Denies anxiety, Denies confusion, Denies depression, Denies homicidal ideation and Denies suicidal ideation Endocrine Denies palpitations Allergic/Immunologic Denies wheezing [facility] Medical History Headache (Acute) Social History Smoking Status: Former smoker alcohol intake: never substance use type: does not use Social History Smoking Status: Former smoker alcohol intake: never substance use type: does not use Exam Initial Vital Signs Initial Vital Signs: Vital Signs Temperature 98.6 F 12/31/18 20:14 Pulse Rate 110 H 12/31/18 20:14 Respiratory Rate 17 12/31/18 20:14 Blood Pressure 163/92 H 12/31/18 20:14 Pulse Oximetry 97 12/31/18 20:14 GENERAL: Alert well-appearing middle-aged female no acute distress HEENT: Head atraumatic,EOMI, pupils reactive, face symmetric, neck is supple no meningeal signs CARDIOVASCULAR: Regular rate and rhythm without murmurs, rubs or gallops. RESPIRATORY: Breath sounds equal bilaterally, no wheezes rales or rhonchi. ABDOMEN: Soft, nontender. Normoactive bowel sounds all 4 quadrants. No guarding or rebound. EXTREMITIES: Normal range of motion, no clubbing or edema. Neurovascularly intact NEUROLOGICAL: Alert and oriented x4.Normal gait and speech. Cranial nerves II through XII grossly intact. Good xeenkl-an-ddxd, good mxjx-mk-rxdn, strength equal bilaterally, no dysarthria or aphasia, sensation in tact to soft touch bilaterally, no visual changes, no facial droop SKIN: Warm, dry, no laceration, no petechiae, no rashes or lesions. Scores NIH Stroke Scale Level of Conciousness: Alert, keenly responsive Ask month/age: Answers both questions correctly. Open/close eyes, close hand: Performs both tasks correctly Best gaze horizontal: Normal Visual canas: No visual loss Facial palsy: Normal symetrical movement Left arm drift: No drift for full 10 sec Right arm drift: No drift for full 10 sec Left leg drift: No drift for full 10 sec Right leg drift: No drift for full 10 sec Limb ataxia: Absent Sensory on face/arms/legs: Normal, no sensory loss Best language: No aphasia, normal Dysarthria: Normal Extinction or inattention: No abnormality Total NIH Stroke scale score: 0 Course Orders Ordered: Discontinued Medications Diphenhydramine HCl (Benadryl) 25 mg IV NOW ONE Stop: 01/01/19 00:42 Last Admin: 01/01/19 01:08 Dose: 25 mg Sodium Chloride (Normal Saline 0.9%) 1,000 mls @ 1,000 mls/hr IV BOLUS ONE Stop: 01/01/19 01:40 Last Infusion: 01/01/19 02:08 Dose: 0 mls/hr Admin: 01/01/19 01:09 Dose: 1,000 mls/hr Ketorolac Tromethamine (Toradol) 30 mg IV NOW ONE Stop: 01/01/19 00:42 Last Admin: 01/01/19 01:08 Dose: 30 mg Prochlorperazine (Compazine) 10 mg IV NOW ONE Stop: 01/01/19 00:42 Last Admin: 01/01/19 01:08 Dose: 10 mg Vital Signs - 8 hr 01/01/19 00:23 01/01/19 01:08 01/01/19 02:16 Pulse Rate 88 80 81 Respiratory Rate 18 18 Blood Pressure 164/88 H 147/85 H Blood Pressure [Left Arm] 152/82 H Pulse Oximetry 95 97 MDM - Headache MDM Narrative Medical decision making narrative: Patient is feeling significantly better after migraine cocktail. She has had blood work and CAT scans at least twice already this week. At this time I do not feel that she warrants any further imaging or workup. She feels ready and able to go home and is able to call her ride. Discharge Plan Departure Patient Disposition: Home Clinical Impression: Headache Qualifiers: Headache type: unspecified Headache chronicity pattern: unspecified pattern Intractability: not intractable Qualified Code(s): R51 - Headache Discharge Date/Time: 01/01/19 02:18 Interventions: ED Discharge Assessment Last Done: 01/01/19 02:16 Instructions: DI for Headache Activity Restrictions/Additional Instructions: *You have been diagnosed with headache *What to do: At this time be sure to follow up with her PCP. You have had 4 ER visits this week, your migraine need to be under better control. He may even require any neurologist consultation. Please talk to her PCP about this *Continue to take medications as directed *Follow up with your primary care provider in 2-3 days *Return to ER if you should have significantly worsening or changing headache, weakness in extremities or any new, worsening or concerning symptoms Prescriptions: No Action ondansetron 4 mg tablet,disintegrating 4 mg PO BID-TID PRN (Reason: nausea and vomiting) Qty: 10 RF: 0 metformin 500 mg Tablet 500 mg PO DAILY RF: 0 latanoprost 0.005 % Drops 1 drp ophthalmic (eye) DAILY RF: 0 citalopram 40 mg Tablet 40 mg PO DAILY RF: 0 clonidine HCl 0.3 mg tablet 0.3 mg PO BID RF: 0 losartan-hydrochlorothiazide 100-25 mg tablet 1 tab PO DAILY RF: 0 meclizine 25 mg Tablet 25 mg PO DAILY PRN (Reason: Vertigo) RF: 0 omeprazole 20 mg Capsule,Delayed Release(Dr/Ec) 20 mg PO Q12H RF: 0 albuterol sulfate 90 mcg/actuation Hfa Aerosol Inhaler 2 puff INHALATION Q4H PRN (Reason: Shortness Of Breath) RF: 0 morphine 15 mg Tablet 15 mg PO Q8H PRN (Reason: pain) RF: 0 diazepam 5 mg tablet 5 mg PO BID PRN (Reason: Anxiety) RF: 0 metoclopramide HCl 10 mg Tablet 10 mg PO DAILY PRN (Reason: Nausea) RF: 0 magnesium 200 mg Tablet 200 mg PO DAILY RF: 0 triamcinolone acetonide 0.05 % Ointment 1 applic topical BID RF: 0 Simbrinza 1-0.2 % Drops,Suspension 1 drp ophthalmic (eye) BID RF: 0 Ocuvite 1 tab PO DAILY RF: 0 ropinirole 0.5 mg tablet 0.5 mg PO BEDTIME RF: 0 Referrals: Jesus Almanzar MD [Primary Care Provider] -
[2019-01-01 01:08] VITALS: BP 164/88; PULSE 80
[2019-01-01] MEDS: diphenhydrAMINE 50 MG/ML VIAL 25 MG IV (01:08)
[2019-01-01] MEDS: PROCHLORPERAZINE 10 MG/2 ML VIAL IV (01:08)
[2019-01-01] MEDS: KETOROLAC 60 MG/2 ML VIAL 30 MG IV (01:08)
[2019-01-01] MEDS: SODIUM CHLORIDE 0.9% 1,000 ML 1000 ML IV (01:09)
[2019-01-01 02:16] VITALS: BP 147/85; PULSE 81; RESP 18; O2SAT 97
== END 2019-01-01 02:18 | disposition home or self-care (01) ==
PROVIDERS: Emergency Provider Emergency Medicine; Family Provider Internal Medicine; PCP Internal Medicine
DX: R51 Headache (principal)
CPT/HCPCS: 96361; 96374; 96375; 99283; 99284; J0780; J1200; J1885

== ENCOUNTER → 2019-03-01 13:22 | Outpatient (CLI) | payer OTHER, SELFPAY ==
--- NOTE | 2019-03-01 | DI.MG.S_ITS ---
BILATERAL DIGITAL DIAGNOSTIC MAMMOGRAM 3D/2D: 03/01/2019 CLINICAL: Right breast lump. Family history of breast cancer. Comparison is made to exams dated: 10/01/2017 mammogram and 05/04/2014 mammogram - [facility]. There are scattered fibroglandular elements in both breasts. No significant masses, calcifications, or other findings are seen in either breast. IMPRESSION: INCOMPLETE: NEEDS ADDITIONAL IMAGING EVALUATION There is no abnormality seen in the right breast to correspond with the palpable abnormality in the upper outer quadrant. An ultrasound is recommended and will be perfomed following this exam. This exam was interpreted at Station ID: [id number]. NOTE: For mammograms, a report in lay terms will be sent to the patient. Approximately 15% of breast malignancies will not be visualized mammographically. In the management of a palpable breast mass, a negative mammogram must not discourage biopsy of a clinically suspicious lesion. Electronically Signed By: Judith long/:03/01/2019 15:56:01 ACR BI-RADS Category 0: Incomplete [id number]
--- NOTE | 2019-03-01 | DI.US.S_ITS ---
LIMITED ULTRASOUND OF RIGHT BREAST: 03/01/2019 CLINICAL: Palpable right breast lump. Comparison is made to exams dated: 03/01/2019 mammogram and 10/01/2017 mammogram - [facility]. Color flow ultrasound of the right breast upper outer quadrant was performed. Almaraz scale images of the real-time examination were reviewed. No abnormalities were seen sonographically in the right breast. IMPRESSION: NEGATIVE There is no sonographic evidence of malignancy. No sonographic finding to correlate with the palpable abnormality. Return to annual mammogram screening schedule is recommended. Findings and recommendations conveyed to the patient. This exam was interpreted at Station ID: [id number]. Electronically Signed By: Judith long/:03/01/2019 15:58:56 letter sent: Normal Exam Ultrasound BI-RADS: 1 Negative
== END ==
PROVIDERS: PCP Internal Medicine; Visit Provider Internal Medicine
DX: R92.8 Other abnormal and inconclusive findings on diagnostic imaging of breast (principal); N63.11 Unspecified lump in the right breast, upper outer quadrant; Z80.3 Family history of malignant neoplasm of breast
CPT/HCPCS: 76642; 77066; G0279

== ENCOUNTER → 2019-08-23 18:39 | Outpatient (ROUT) | payer OTHER, SELFPAY ==
[2019-08-23 18:56] LABS: Add Manual Diff / Slide Review NO; Basophils Absolute Auto 100 /uL (0-100); Basophils Percent Auto 0.8 % (0-2); Eosinophils Absolute Auto 100 /uL (0-450); Hematocrit 37.5 % (36-46); Hemoglobin 12.9 g/dL (12.0-16.0); Lymphocytes Absolute Auto 1900 /uL (1100-4500); Lymphocytes Percent Auto 28.8 % (25-40); Mean Corpuscular HGB Conc 34.4 % (30-36); Mean Corpuscular Hemoglobin 30.3 PG (26-34); Mean Corpuscular Volume 88.1 fL (80-100); Monocytes Absolute Auto 500 /uL (0-900); Monocytes Percent Auto 7.3 % (3-14); Neutrophils Absolute Auto 4100 /uL (1500-7000); Neutrophils Percent Auto 61.1 % (50-75); Platelet Count 157 X10^3/uL (150-400); Red Blood Cell Count 4.26 X10^6/uL (4.0-5.2); Red Cell Distribution Width 15.4 % (11.6-14.8); White Blood Cell Count 6.6 X10^3/uL (4.5-11.0)
[2019-08-23 19:03] LABS: Alanine Aminotransferase 48 IU/L (<35); Albumin 3.7 g/dL (3.5-5.0); Albumin Globulin Ratio 1.3 (1.0-2.8); Alkaline Phosphatase 79 U/L (38-126); Aspartate Aminotransferase 68 IU/L (14-36); BUN Creatinine Ratio 15.7 (6-22); Bilirubin Total 1.2 mg/dL (0.2-1.3); Blood Urea Nitrogen 22 mg/dL (7-17); Calcium 9.2 mg/dL (8.4-10.2); Carbon Dioxide 32 mmol/L (22-32); Chloride 97 mmol/L (98-107); Cholesterol 191 mg/dL (140-199); Globulin 2.8 g/dL (1.7-4.1); Glucose 202 mg/dL (80-110); HDL Cholesterol 38 mg/dL (40-60); HEMOLYSIS < 15 (0-50); LDL Cholesterol Calculated 114 mg/dL (<100); Potassium 3.9 mmol/L (3.4-5.1); Sodium 137 mmol/L (137-145); Total Protein 6.5 g/dL (6.3-8.2); Triglycerides 194 mg/dL (35-150)
[2019-08-23 19:33] LABS: TSH w/ Reflex to FT4 3.88 uIU/mL (0.47-4.68)
== END ==
PROVIDERS: PCP Internal Medicine; Visit Provider Physician Assistant
DX: E78.5 Hyperlipidemia, unspecified (principal); E03.9 Hypothyroidism, unspecified; I10 Essential (primary) hypertension
CPT/HCPCS: 80053; 80061; 84443; 85025

== ENCOUNTER → 2019-08-29 13:11 | Outpatient (CLI) | payer OTHER, SELFPAY ==
--- NOTE | 2019-08-29 | DI.US.S_ITS ---
PROCEDURE: US ABDOMEN COMPLETE INDICATIONS: ABNORMAL LEVELS OF OTHER SERUM ENZYMES TECHNIQUE: Real-time scanning was performed of the abdominal and retroperitoneal organs, with image documentation. COMPARISON: None. FINDINGS: Liver: Liver is diffusely increased in echogenicity. No focal hepatic abnormalities identified. Normal hepatic size. Gallbladder: Surgically absent. Biliary ducts: Not well-visualized. Pancreas: Visualized portions of the pancreas are sonographically normal. Spleen: Spleen is enlarged in size at 13.9 cm and homogeneous in echotexture. Kidneys: Kidneys are normal in size and echotexture. Right kidney measures 9.9 cm long; left kidney measures 10.4 cm long. No hydronephrosis or nephrolithiasis. No solid masses. Aorta: Not visualized. Iliacs: Not visualized. IVC: Intrahepatic inferior vena cava is patent. Miscellaneous: No free abdominal fluid. IMPRESSION: 1. Increased hepatic echogenicity noted possibly related to hepatic steatosis but other sources of hepatocellular disease cannot be excluded. Recommend clinical correlation. 2. Mild sonographic splenomegaly. Dictated by: Jose RIOS Interpreted: Carloz Valenzuela MD on 08/29/2019 at 14:52 Approved by: Carloz Valenzuela M.D. on 08/29/2019 at 15:01
== END ==
PROVIDERS: PCP Internal Medicine; Visit Provider Internal Medicine
DX: R74.8 Abnormal levels of other serum enzymes (principal); R16.1 Splenomegaly, not elsewhere classified; Z90.49 Acquired absence of other specified parts of digestive tract
CPT/HCPCS: 76700

== ENCOUNTER → 2020-07-12 15:18 | Outpatient (ROUT) | payer MEDICARE, SELFPAY ==
[2020-07-12 15:35] LABS: Add Manual Diff / Slide Review NO; Basophils Absolute Auto 0 /uL (0-100); Basophils Percent Auto 0.5 % (0-2); Eosinophils Absolute Auto 100 /uL (0-450); Eosinophils Percent Auto 1.7 % (2-4); Hematocrit 36.5 % (36-46); Hemoglobin 12.5 g/dL (12.0-16.0); Lymphocytes Absolute Auto 1600 /uL (1100-4500); Lymphocytes Percent Auto 24.8 % (25-40); Mean Corpuscular HGB Conc 34.3 % (30-36); Mean Corpuscular Hemoglobin 30.3 PG (26-34); Mean Corpuscular Volume 88.4 fL (80-100); Monocytes Absolute Auto 400 /uL (0-900); Monocytes Percent Auto 5.7 % (3-14); Neutrophils Absolute Auto 4400 /uL (1500-7000); Neutrophils Percent Auto 67.3 % (50-75); Platelet Count 154 X10^3/uL (150-400); Red Blood Cell Count 4.13 X10^6/uL (4.0-5.2); White Blood Cell Count 6.5 X10^3/uL (4.5-11.0)
[2020-07-12 15:43] LABS: Alanine Aminotransferase 22 IU/L (<35); Albumin 4.2 g/dL (3.5-5.0); Albumin Globulin Ratio 1.4 (1.0-2.8); Alkaline Phosphatase 64 U/L (38-126); Aspartate Aminotransferase 30 IU/L (14-36); BUN Creatinine Ratio 18.4 (6-22); Bilirubin Total 1.1 mg/dL (0.2-1.3); Blood Urea Nitrogen 16 mg/dL (7-17); Calcium 9.3 mg/dL (8.4-10.2); Carbon Dioxide 30 mmol/L (22-32); Chloride 99 mmol/L (98-107); Cholesterol 182 mg/dL (140-199); Estimated Glomerular Filt Rate > 60.0 mL/min (>60); Glucose 159 mg/dL (80-110); HDL Cholesterol 35 mg/dL (40-60); HEMOLYSIS < 15 (0-50); LDL Cholesterol Calculated 71 mg/dL (<100); Potassium 3.4 mmol/L (3.4-5.1); Sodium 140 mmol/L (137-145); Total Protein 7.2 g/dL (6.3-8.2); Triglycerides 381 mg/dL (35-150)
[2020-07-12 16:11] LABS: TSH w/ Reflex to FT4 3.59 uIU/mL (0.47-4.68)
== END ==
PROVIDERS: PCP Internal Medicine; Visit Provider Internal Medicine
DX: E11.9 Type 2 diabetes mellitus without complications (principal); I10 Essential (primary) hypertension; E03.9 Hypothyroidism, unspecified
CPT/HCPCS: 80053; 80061; 84443; 85025

== ENCOUNTER 2020-08-10 10:39 | Emergency (ER) | payer MEDICARE, SELFPAY ==
[2020-08-10] VITALS (16 sets, daily range): BP systolic 174–222; BP diastolic 66–100; PULSE 76–97; RESP 16–20; O2SAT 92–98
[2020-08-10] MEDS: CYCLOBENZAPRINE 10 MG TABLET PO (12:10)
[2020-08-10] MEDS: LIDOCAINE PATCH 1 EACH ADH..PATCH TOP (12:10)
[2020-08-10] MEDS: MORPHINE 4 MG/ML INJ IV ×2 (12:50→13:41)
[2020-08-10] MEDS: SODIUM CHLORIDE 0.9% 1,000 ML 250 ML IV (12:50)
[2020-08-10] MEDS: ONDANSETRON 4 MG/2 ML INJ IV (13:02)
--- NOTE | 2020-08-10 15:29 | CM.SWNOTE ---
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 Additionally, patient reports she has been crying all the time recently and feeling sad. Precipitating Event(s) Patient discontinued her SSRI, which she had been on for over 15 years, in September,. Patient has had 5 close friends in the past 6 months. 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 Patient Strengths Patient presents with many strengths. Patient expresses significant care for the well- being of those around her, a realistic mindset regarding physical illness, and describes a significant amount of perseverance in several areas of her life. Current Behavioral Health Provider(s) None. Include Facility, Provider, Ph. # Psych. Hx Mental Health and Chemical Patient has been diagnosed Dependency with depression, and reports recently being diagnosed with a lot of anxiety. Patient reports she does not fully agree with this diagnosis. No substance use reported. Family Hx of Behavioral Abuse Patient reports childhood trauma, but does not disclose any specific details. Psychiatric Hospitalizations (date(s)/ None reported. 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 Patient retired due to increasing pain from Durcam's disease, and has had to discontinue many of the activities that used to bring her suzan. Patient reports she is a very social person and has many friends in the community. School/Work Retired. Legal Concerns Legal Matters - Outstanding Issues None reported. Mental Status Orientation (Person/Place/Time) Oriented x3 Stated Mood not very good Affect (Congruent with Mood?) Euthymic though tearful at times, full range, congruent with mood Thought Content - Specify/Describe Patient reports that she is Obsessions, Delusions, Hallucinations able to accurately predict things, such as people dying and the mountain exploding. Patient reports she does not like this and describes this experience as being sensitive . Thought Processes (Cdqqxvl-Xdehgele-Hmiu Circumstantial Nqwgnoxn-Xeigjlgz-Mhztycgggk- Fgffbzvlcilnpd-Mvrzyam-Cegzrccgqcpe- Thought Blocking) Speech (Ontguu-Tbvl-Rrfhkga-Rapid-Soft- Normal Loud-Pressured) Motor (Knzbvy-Eepohpeuv-Yjld-Other) Normal Insight (Jqbg-Wpzs-Bljd/Limited) Fair-Good Judgement (Wquv-Wrly-Zcpe/Limited) Good Impulse Control (Adequate-Impaired) Adequate Memory (Xgiqsbcng-Oteknu-Ktxssa, Intact for assessment, not Impaired-Intact) formally evaluated. Concentration (Intact-Impaired) Slight impairment Attention (Intact-Impaired) Slight impairment Behavior (Appropriate-Inappropriate) Appropriate Risk Assessment Suicidal Ideation (Plan) No Homicidal Ideation (Plan) No Comment Patient denies SI/HI. Intervention Intervention PATIENT OFFICE REP meets with patient. Patient discusses increase in pain, changes in medication, and recent loss of several friends. PATIENT OFFICE REP and patient discuss these, and PATIENT OFFICE REP inquires about counseling. Patient reports she has seen counselors before, but did not find one that felt like a good fit. PATIENT OFFICE REP provided patient education on self-advocacy in a counseling session, and informed patient that it encouraged to inform a counselor if she is feeling like they are a bad fit. Patient expresses interest in resuming counseling, and informs PATIENT OFFICE REP that she has an appt. with PCP early following week and will discuss counseling and restarting SSRI during this meeting. PATIENT OFFICE REP updates provider ARABELLA Herring, who will put ED PATIENT OFFICE REP phone in d/c note in case of additional follow up support needed. Plan RA Plan Plan for patient to d/c with f /u from PCP. SHAHRAM Copeland
--- NOTE | 2020-08-10 19:52 | ED.EXTPRO ---
HPI - Extremity Problem <Roma OttoHERSONP-BC - Last Filed: 08/10/20 20:34> General Chief complaint: Extremity Problem,Nontraumatic Stated complaint: pain in right arm Time Seen by Provider: 08/10/20 11:13 Source: patient and family Mode of arrival: Ambulatory Limitations: no limitations History of Present Illness HPI Narrative: The patient is a 64-year-old female former smoker with history of dercum disease, adiposis dolorosa who presents with a chief complaint of right arm pain. She states she has chronic pain, is taking morphine 15 mg twice a day. She states that she developed right scapular and shoulder pain without trauma on Thursday. She states that her primary care provider has been titrating down her morphine, she used to be at much higher doses twice a day with morphine IR for breakthrough pain. She states her pain is 10/10 right now. She denies any rashes, states that she think she developed a new lipoma and that is what is causing the pain. She states they are trying to wean her from morphine to gabapentin. She denies any chest pain, shortness of breath, nausea vomiting diarrhea or systemic symptoms. Related Data Home Medications Medication Instructions Recorded Confirmed Ocuvite 1 tab PO DAILY 12/29/18 12/29/18 albuterol sulfate 2 puff INHALATION Q4H PRN 12/29/18 12/29/18 brinzolamide-brimonidine 1 drp OPHTHALMIC (EYE) BID 12/29/18 12/29/18 [Simbrinza] citalopram 40 mg PO DAILY 12/29/18 12/29/18 clonidine HCl 0.3 mg PO BID 12/29/18 12/29/18 diazepam 5 mg PO BID PRN 12/29/18 12/29/18 latanoprost 1 drp OPHTHALMIC (EYE) DAILY 12/29/18 12/29/18 losartan-hydrochlorothiazide 1 tab PO DAILY 12/29/18 12/29/18 magnesium 200 mg PO DAILY 12/29/18 12/29/18 meclizine 25 mg PO DAILY PRN 12/29/18 12/29/18 metformin 500 mg PO DAILY 12/29/18 12/29/18 metoclopramide HCl 10 mg PO DAILY PRN 12/29/18 12/29/18 morphine 15 mg PO Q8H PRN 12/29/18 12/29/18 omeprazole 20 mg PO Q12H 12/29/18 12/29/18 ropinirole 0.5 mg PO BEDTIME 12/29/18 12/29/18 triamcinolone acetonide 1 applic TOPICAL BID 12/29/18 12/29/18 Previous Rx's Medication Instructions Recorded ondansetron 4 mg PO BID-TID PRN #10 tab 12/25/18 Allergies Allergy/AdvReac Type Severity Reaction Status Date / Time Beta-Blockers Allergy Unknown Verified 08/10/20 10:51 (Beta-Adrenergic Bloc Corticosteroids Allergy Unknown Verified 08/10/20 10:51 (Glucocorticoids) neomycin Allergy Unknown Verified 08/10/20 10:51 zolpidem AdvReac Intermediate CONFUSION/A Verified 08/10/20 10:51 MNESIA Review of Systems <DEBRA Herring - Last Filed: 08/10/20 20:34> Review of Systems Narrative: GENERAL: Denies chills, fatigue, malaise, fever, sweats. HEENT: Denies sinus pain, ear pain, sore throat, difficulty swallowing, dizziness. RESPIRATORY: Denies dyspnea, cough, wheezing, hemoptysis, sputum. CARDIOVASCULAR: Denies chest pain, palpitations, orthopnea, edema, GASTROINTESTINAL: Denies nausea, vomiting, abdominal pain, diarrhea, constipation, melena. : Denies dysuria, frequency, incontinence, hematuria, urinary retention. MUSCULOSKELETAL: See HPI SKIN: Denies rash, skin lesions, or other NEUROLOGIC: Denies weakness, headache, numbness, change in speech, confusion, seizures, incoordination. PSYCHIATRIC: No concerning psychosocial issues. 12 point review of systems is negative except for those stated above Patient History <DEBRA Herring - Last Filed: 08/10/20 20:34> Medical History (Updated 08/10/20 @ 15:44 by DEBRA Herring) Headache (Acute) Social History Smoking Status: Former smoker alcohol intake: never substance use type: does not use Smoking Status: Former smoker alcohol intake frequency: 0-2 drinks per day Substance Use Type: does not use Exam <DEBRA Herring - Last Filed: 08/10/20 20:34> Narrative Exam Narrative: GENERAL: This is a well-nourished, well-developed patient, teary lying on stretcher HEAD: Atraumatic. Normocephalic. No temporal or scalp tenderness. EYES: Pupils equal round and reactive. Extraocular motions intact. No scleral icterus. No injection or drainage. ENT: Nose without bleeding, purulent drainage or septal hematoma. Wearing a mask Airway patent. NECK: Trachea midline. No JVD or lymphadenopathy. Supple, nontender, no meningeal signs. CARDIOVASCULAR: Regular rate and rhythm RESPIRATORY: Clear to auscultation. Breath sounds equal bilaterally. No wheezes, rales, or rhonchi. No cough. No increased respiratory effort. No accessory muscle use. GASTROINTESTINAL: Abdomen soft, non-tender, nondistended. No hepato-splenomegaly, or palpable masses. No guarding. EXTREMITIES: Pain to palpation around right scapula. Multiple small palpable masses noted. No visual abnormality. Good sand shoveler strength right hand. Using all extremities lightly. Positive right radial pulse. Capillary refill less than 2 seconds right hand. BACK: Nontender without deformity or crepitance. No flank tenderness. NEURO: AOx3. SKIN: No rash or erythema on visible skin. No rash erythema laceration or abrasion noted right shoulder her daughter right arm. Initial Vital Signs Initial Vital Signs: Vital Signs Pulse Rate 97 H 08/10/20 10:40 Respiratory Rate 18 08/10/20 10:40 Blood Pressure 220/100 H 08/10/20 10:40 Pulse Oximetry 97 08/10/20 10:40 <Lorene Villeda DO - Last Filed: 08/11/20 07:28> Initial Vital Signs Initial Vital Signs: Vital Signs Pulse Rate 97 H 08/10/20 10:40 Respiratory Rate 18 08/10/20 10:40 Blood Pressure 220/100 H 08/10/20 10:40 Pulse Oximetry 97 08/10/20 10:40 Scores <DEBRA Herring - Last Filed: 08/10/20 20:34> GCS [place] coma scale eye opening: Spontaneous [place] coma scale verbal response: Orientated [place] coma scale motor response: Obey commands Y[place] coma scale total score: 15 Course <DEBRA Herring - Last Filed: 08/10/20 20:34> Orders Ordered: Discontinued Medications Cyclobenzaprine HCl (Flexeril) 10 mg PO NOW ONE Stop: 08/10/20 12:00 Last Admin: 08/10/20 12:10 Dose: 10 mg Documented by: LILIANA Sodium Chloride (Normal Saline 0.9%) 1,000 mls @ 250 mls/hr IV CONT EYAD Last Infusion: 08/10/20 15:59 Dose: 0 mls/hr Documented by: Admin: 08/10/20 12:50 Dose: 250 mls/hr Documented by: CHERELLE Lidocaine (Lidoderm) 1 each TOP NOW ONE Stop: 08/10/20 12:00 Last Admin: 08/10/20 12:10 Dose: 1 each Documented by: LILIANA Lidocaine (Lidoderm (Remove Patch)) 1 each TOP BEDTIME EYAD Morphine Sulfate (Morphine) 4 mg IV NOW ONE Stop: 08/10/20 12:16 Last Admin: 08/10/20 12:50 Dose: 4 mg Documented by: CHERELLE Morphine Sulfate (Morphine) 4 mg IV NOW ONE Stop: 08/10/20 13:25 Last Admin: 08/10/20 13:41 Dose: 4 mg Documented by: LILIANA Ondansetron HCl (Zofran) 4 mg IV NOW ONE Stop: 08/10/20 12:55 Last Admin: 08/10/20 13:02 Dose: 4 mg Documented by: CHERELLE Vital Signs Vital signs: Vital Signs - 8 hr 08/10/20 13:00 08/10/20 13:26 08/10/20 13:27 Pulse Rate 82 82 78 Respiratory Rate 16 Blood Pressure 183/80 H 183/80 H Pulse Oximetry 95 95 95 08/10/20 13:30 08/10/20 14:00 08/10/20 16:01 Pulse Rate 76 78 90 Respiratory Rate 18 Blood Pressure 174/88 H Pulse Oximetry 95 92 97 <Lorene Villeda DO - Last Filed: 08/11/20 07:28> Orders Ordered: Discontinued Medications Cyclobenzaprine HCl (Flexeril) 10 mg PO NOW ONE Stop: 08/10/20 12:00 Last Admin: 08/10/20 12:10 Dose: 10 mg Documented by: LILIANA Sodium Chloride (Normal Saline 0.9%) 1,000 mls @ 250 mls/hr IV CONT EYAD Last Infusion: 08/10/20 15:59 Dose: 0 mls/hr Documented by: Admin: 08/10/20 12:50 Dose: 250 mls/hr Documented by: CHERELLE Lidocaine (Lidoderm) 1 each TOP NOW ONE Stop: 08/10/20 12:00 Last Admin: 08/10/20 12:10 Dose: 1 each Documented by: LILIANA Lidocaine (Lidoderm (Remove Patch)) 1 each TOP BEDTIME [facility] Morphine Sulfate (Morphine) 4 mg IV NOW ONE Stop: 08/10/20 12:16 Last Admin: 08/10/20 12:50 Dose: 4 mg Documented by: CHERELLE Morphine Sulfate (Morphine) 4 mg IV NOW ONE Stop: 08/10/20 13:25 Last Admin: 08/10/20 13:41 Dose: 4 mg Documented by: LILIANA Ondansetron HCl (Zofran) 4 mg IV NOW ONE Stop: 08/10/20 12:55 Last Admin: 08/10/20 13:02 Dose: 4 mg Documented by: CHERELLE Vital Signs Vital signs: Vital Signs - 8 hr 08/10/20 13:00 08/10/20 13:26 08/10/20 13:27 Pulse Rate 82 82 78 Respiratory Rate 16 Blood Pressure 183/80 H 183/80 H Pulse Oximetry 95 95 95 08/10/20 13:30 08/10/20 14:00 08/10/20 16:01 Pulse Rate 76 78 90 Respiratory Rate 18 Blood Pressure 174/88 H Pulse Oximetry 95 92 97 [facility] - Extremity (Nontraumatic) <MIGUELITO Herring-BC - Last Filed: 08/10/20 20:34> [facility] Narrative Medical decision making narrative: The patient is a 64-year-old female who presents with a chief complaint of right arm pain, likely related to her chronic disease. She feels much improved after the above-stated therapies. I offered further evaluation such as x-ray EKG, which she declined. The patient does have a chronic pain, and has been on morphine as since last decade. I did discuss with her that chronic narcotic use will decrease her pain tolerance, and switching from morphine to gabapentin as well as decreasing morphine dose could be contributing to her pain. She also has not been sleeping since Thursday. Given her chronic pain and chronic disease, I asked Eren OMALLEY to spend some time with her, and they came up with plan for the patient to follow up with primary care provider and request restarting her antidepressants. After her 2nd dose of IV pain medicine, the patient is requesting to be discharged and I am okay with that. I did discuss at length with the patient that since a no other provider is managing her chronic pain, I would like her to follow up with him regarding chronic pain dose changes. She did decline further evaluation in the emergency department sutures imaging etcetera, but I discussed with her that if she has any acute concerns she is welcome to come back to the emergency department to be evaluated. I did discuss at length follow up with her primary care provider in the next few days. Patient has no questions or concerns upon discharge and states understanding of return precautions as well as follow-up care. Discharge Plan Departure Patient Disposition: Home Clinical Impression: Pain Discharge Date/Time: 08/10/20 16:01 Instructions: DI for Chronic Pain -- Adult, DI for Arm Pain Activity Restrictions/Additional Instructions: Thank you for trusting us with your care today. As discussed, please follow-up with primary care provider next few days. Please come back to the emergency department for any acute concerns. Today we gave you pain medications to decrease your pain. Please follow-up with Dr. Almanzar regarding changing her prescription pain medicine. Eren, our oncology social worker wanted you to have his office number. It is [phone]. Prescriptions: No Action ondansetron 4 mg tablet,disintegrating 4 mg PO BID-TID PRN (Reason: nausea and vomiting) Qty: 10 RF: 0 metformin 500 mg Tablet 500 mg PO DAILY RF: 0 latanoprost 0.005 % Drops 1 drp ophthalmic (eye) DAILY RF: 0 citalopram 40 mg Tablet 40 mg PO DAILY RF: 0 clonidine HCl 0.3 mg tablet 0.3 mg PO BID RF: 0 losartan-hydrochlorothiazide 100-25 mg tablet 1 tab PO DAILY RF: 0 meclizine 25 mg Tablet 25 mg PO DAILY PRN (Reason: Vertigo) RF: 0 omeprazole 20 mg Capsule,Delayed Release(Dr/Ec) 20 mg PO Q12H RF: 0 albuterol sulfate 90 mcg/actuation Hfa Aerosol Inhaler 2 puff INHALATION Q4H PRN (Reason: Shortness Of Breath) RF: 0 morphine 15 mg Tablet 15 mg PO Q8H PRN (Reason: pain) RF: 0 diazepam 5 mg tablet 5 mg PO BID PRN (Reason: Anxiety) RF: 0 metoclopramide HCl 10 mg Tablet 10 mg PO DAILY PRN (Reason: Nausea) RF: 0 magnesium 200 mg Tablet 200 mg PO DAILY RF: 0 triamcinolone acetonide 0.05 % Ointment 1 applic topical BID RF: 0 Simbrinza 1-0.2 % Drops,Suspension 1 drp ophthalmic (eye) BID RF: 0 Ocuvite 1 tab PO DAILY RF: 0 ropinirole 0.5 mg tablet 0.5 mg PO BEDTIME RF: 0 Referrals: Jesus Almanzar MD [Primary Care Provider] - <Lorene Villeda DO - Last Filed: 08/11/20 07:28> Cosign ED Attending Jtature Attestation: I was immediately available in the department for consultation. Documentation has been reviewed. I agree with assessment and plan.
== END 2020-08-10 16:01 | disposition home or self-care (01) ==
PROVIDERS: Emergency Provider Nurse Practitioner Family; PCP Internal Medicine
DX: M79.601 Pain in right arm (principal)
CPT/HCPCS: 36415; 96361; 96374; 96375; 96376; 99284; J2270; J2405

== ENCOUNTER → 2020-11-05 15:51 | Outpatient (CLI) | payer MEDICARE, SELFPAY ==
--- NOTE | 2020-11-05 | DI.MRI.S_ITS ---
PROCEDURE: MR CERVICAL SPINE WO CON INDICATIONS: Spinal stenosis, lumbar region without neurogenic TECHNIQUE: Noncontrast sagittal T1 spin echo and T2 fast spin echo, sagittal STIR, foraminal oblique sagittal T2 fast spin echo, and axial gradient echo or T2 fast spin echo through the cervical spine. COMPARISON: None. FINDINGS: Image quality: Degraded by patient motion artifact. Alignment and Curvature: There is normal bony alignment. Bone Marrow: Minimal reactive endplate changes noted adjacent to the C5-C6 disc. Spinal Cord: Visualized spinal cord has normal size and signal. No cerebellar tonsillar herniation. Paraspinous Soft Tissues: No paravertebral masses. Prevertebral soft tissues are normal in thickness. C2-C3: Loss of disc signal. No central stenosis. No neural foraminal narrowing. No neural compression. C3-C4: Loss of disc signal. Mild, diffuse disc bulge and small central disc protrusion. Mild bilateral facet hypertrophy. Mild left uncovertebral joint hypertrophy. Mild narrowing of the central canal. Mild left neural foraminal narrowing. No neural compression. C4-C5: Loss of disc signal. Mild, diffuse disc bulge. Mild right and moderate left facet hypertrophy. Mild left uncovertebral joint hypertrophy. Mild narrowing of the central canal. Mild right and severe left neural foraminal narrowing with compression of the exiting left C5 nerve root. C5-C6: Loss of disc signal and height. Moderate, diffuse disc bulge. Extends inferiorly along the posterior margin of the C6 vertebral body to the level of the C6-C7 disc. [id number] bilateral facet hypertrophy. Mild right and moderate left uncovertebral joint hypertrophy. Severe narrowing of the central canal with slight compression of the cervical spinal cord. Moderate right and severe left neural foraminal narrowing with compression of the exiting left C6 nerve root. C6-C7: Loss of disc signal. Moderate, diffuse disc bulge mild bilateral facet hypertrophy. Mild right uncovertebral joint hypertrophy. Moderate narrowing of the central canal. Mild bilateral neural foraminal narrowing. No neural compression. C7-T1: Normal appearance. IMPRESSION: 1. Multilevel degenerative disc disease. 2. Multilevel facet arthropathy. 3. Large in C5-C6 central disc extrusion. Extruded disc material extends inferiorly along the posterior margin of the C6 vertebral body to the level of the C6-C7 disc. 3. Severe C5-C6 central canal narrowing with slight compression of the cervical spinal cord. 5. Severe left C4-C5 neural foraminal narrowing with compression of the exiting left C5 nerve root. Severe left C5-C6 neural foraminal narrowing with compression of the exiting left C6 nerve root. Dictated by: Catrina Palomino MD, PhD on 11/05/2020 at 16:44 Approved by: Catrina Palomino MD, PhD on 11/05/2020 at 17:13
== END ==
PROVIDERS: PCP Internal Medicine; Referring Provider Internal Medicine; Visit Provider Internal Medicine
DX: M48.02 Spinal stenosis, cervical region (principal); M48.061 Spinal stenosis, lumbar region without neurogenic claudication; M50.31 Other cervical disc degeneration, high cervical region; M47.812 Spondylosis without myelopathy or radiculopathy, cervical region; M50.222 Other cervical disc displacement at C5-C6 level
CPT/HCPCS: 72141

== ENCOUNTER → 2020-12-28 10:13 | Outpatient (CLI) | payer MEDICARE, SELFPAY ==
[2020-12-28] MEDS: COVID-19 VACC, Ad26(JANSSEN)/PF 0.5 ML IM (10:21)
== END ==
PROVIDERS: PCP Internal Medicine; Visit Provider Internal Medicine
DX: Z23 Encounter for immunization (principal)
CPT/HCPCS: 0031A; 91303

== ENCOUNTER 2021-03-06 17:18 | Emergency (ER) | payer MEDICARE, SELFPAY ==
[2021-03-06 17:25] VITALS: BP 215/105; PULSE 105; RESP 16; TEMP 35.9; O2SAT 94; BMI 39.4
--- NOTE | 2021-03-06 17:25 | PC.NURSE ---
Dr Sandhu saw pt at triage. No orders received at this time. Dr Sandhu ol with pt returning to the lobby.
--- NOTE | 2021-03-06 18:58 | ED_ITS ---
HPI - Neuro Symptoms/Deficit General Chief Complaint: Neuro Symptoms/Deficit Stated Complaint: thinks she had a stroke Time Seen by Provider: 03/06/21 17:21 Source: patient Mode of arrival: Ambulatory Limitations: no limitations History of Present Illness HPI Narrative: 65-year-old woman with history of Dercum disease (adiposis dolorosa), chronic migraine, hypertension, diabetes, depression, presents with left-sided facial droop that was noticed when she woke up this morning. She describes no significant headache, no recent trauma no associated motor or sensory changes in the upper or lower extremities. No recent fever, cough, chills, abdominal pain, palpitations, change lower extremity edema. She does note that she continues to have chronic pain secondary to the subcutaneous nodules from the dercum disease. She notes that she is having trouble with eating and chewing because the left side of her mouth is weak and she is having difficulty completely closing her left eye. On Anticoagulants: No Related Data Home Medications Medication Instructions Recorded Confirmed Ocuvite 1 tab PO DAILY 12/29/18 12/29/18 albuterol sulfate 2 puff INHALATION Q4H PRN 12/29/18 12/29/18 brinzolamide-brimonidine 1 drp OPHTHALMIC (EYE) BID 12/29/18 12/29/18 [Simbrinza] citalopram 40 mg PO DAILY 12/29/18 12/29/18 clonidine HCl 0.3 mg PO BID 12/29/18 12/29/18 diazepam 5 mg PO BID PRN 12/29/18 12/29/18 latanoprost 1 drp OPHTHALMIC (EYE) DAILY 12/29/18 12/29/18 losartan-hydrochlorothiazide 1 tab PO DAILY 12/29/18 12/29/18 magnesium 200 mg PO DAILY 12/29/18 12/29/18 meclizine 25 mg PO DAILY PRN 12/29/18 12/29/18 metformin 500 mg PO DAILY 12/29/18 12/29/18 metoclopramide HCl 10 mg PO DAILY PRN 12/29/18 12/29/18 morphine 15 mg PO Q8H PRN 12/29/18 12/29/18 omeprazole 20 mg PO Q12H 12/29/18 12/29/18 ropinirole 0.5 mg PO BEDTIME 12/29/18 12/29/18 triamcinolone acetonide 1 applic TOPICAL BID 12/29/18 12/29/18 Previous Rx's Medication Instructions Recorded ondansetron 4 mg PO BID-TID PRN #10 tab 12/25/18 acyclovir 400 mg PO Q4-5H 10 Days #50 tab 03/06/21 prednisone 60 mg PO DAILY 7 Days #21 tab 03/06/21 Allergies Allergy/AdvReac Type Severity Reaction Status Date / Time Beta-Blockers Allergy Unknown Verified 03/06/21 17:25 (Beta-Adrenergic Bloc Corticosteroids Allergy Unknown Verified 03/06/21 17:25 (Glucocorticoids) neomycin Allergy Unknown Verified 03/06/21 17:25 zolpidem AdvReac Intermediate CONFUSION/A Verified 03/06/21 17:25 MNESIA Review of Systems Review of Systems Narrative: Remainder of complete review of systems is otherwise unremarkable except for that included in the HPI. Hematologic/Lymphatic On Anticoagulants: No Patient History Medical History Adiposa dolorosa Dinh's palsy Chronic migraine Depression Diabetes Headache Hypertension Social History Smoking Status: Former smoker alcohol intake: never substance use type: does not use Smoking Status: Former smoker alcohol intake frequency: 0-2 drinks per day Substance Use Type: does not use Exam Narrative Exam Narrative: General: Healthy appearing, in mild distress. Able to give a complete and coherent history. Well-nourished well-developed HEENT: Moist mucous membranes, normal sclera with reactive pupils, left-sided facial droop with forehead involvement unable to completely close left eyelid. Neck: No JVD, supple Respiratory: Lungs are clear to auscultation, no wheezing no rales no rhonchi. Full and symmetrical air movement Cardiac: Regular rate and rhythm no murmurs no bruits Abdomen: Soft, nontender, good bowel tones, no flank pain Skin: Warm and dry, multiple painful subcutaneous nodules Neurologic: Left-sided facial abnormalities as described above, no weakness or sensory loss to upper or lower extremities, normal speech fluency Extremities: No trauma, well perfused Psych: Cooperative, appropriate insight and affect Initial Vital Signs Initial Vital Signs: Vital Signs Temperature 96.7 F L 03/06/21 17:25 Pulse Rate 105 H 03/06/21 17:25 Respiratory Rate 16 03/06/21 17:25 Blood Pressure 215/105 H 03/06/21 17:25 Pulse Oximetry 94 03/06/21 17:25 Course Orders Ordered: Discontinued Medications Acyclovir (Acyclovir 400 Mg Tablet) 400 mg PO NOW ONE Stop: 03/06/21 19:04 Last Admin: 03/06/21 19:21 Dose: 400 mg Documented by: EBONIE Prednisone (Prednisone 20 Mg Tablet) 60 mg PO NOW ONE Stop: 03/06/21 19:04 Last Admin: 03/06/21 19:21 Dose: 60 mg Documented by: EBONIE Vital Signs Vital signs: Vital Signs - 8 hr 03/06/21 19:32 Pulse Rate 70 Respiratory Rate 22 Blood Pressure 183/80 H Pulse Oximetry 99 MDM - Neuro Symptoms/Deficit MDM Narrative Medical decision making narrative: 65-year-old woman with obvious left-sided Dinh's palsy starting sometime over the night with symptoms upon awakening. Will follow up-to-date recommendations and plan on 60 mg of prednisone daily for a week, acyclovir 400 mg 5 times a day for 10 days, we discussed artificial tears which she has at home because her unaffected right eye artery has issues with dryness. Reviewed anticipated course of recovery and follow-up as needed. No evidence of stroke, bacterial infection, tumor, zoster. She will be safe for home discharge Discharge Plan Departure Patient Disposition: Home Clinical Impression: Dinh's palsy Instructions: DI for [place] Palsy Activity Restrictions/Additional Instructions: It was wonderful to see you again I am sorry that your experiencing this Dinh's palsy. It can be frustrating particularly with your eye being dry and difficulty in eating. It typically is self-limited and will improve significantly if not be completely resolved. I am going to ask you to take 60 mg of prednisone for the next 7 days and acyclovir 400 mg 5 times a day for the next 10 days. If you have new or worsening symptoms please feel free to return to the ER. I hope you heal quickly Prescriptions: New prednisone 20 mg tablet 60 mg PO DAILY 7 Days Qty: 21 RF: 0 acyclovir 400 mg tablet 400 mg PO Q4-5H 10 Days Qty: 50 RF: 0 No Action ondansetron 4 mg tablet,disintegrating 4 mg PO BID-TID PRN (Reason: nausea and vomiting) Qty: 10 RF: 0 metformin 500 mg Tablet 500 mg PO DAILY RF: 0 latanoprost 0.005 % Drops 1 drp ophthalmic (eye) DAILY RF: 0 citalopram 40 mg Tablet 40 mg PO DAILY RF: 0 clonidine HCl 0.3 mg tablet 0.3 mg PO BID RF: 0 losartan-hydrochlorothiazide 100-25 mg tablet 1 tab PO DAILY RF: 0 meclizine 25 mg Tablet 25 mg PO DAILY PRN (Reason: Vertigo) RF: 0 omeprazole 20 mg Capsule,Delayed Release(Dr/Ec) 20 mg PO Q12H RF: 0 albuterol sulfate 90 mcg/actuation Hfa Aerosol Inhaler 2 puff INHALATION Q4H PRN (Reason: Shortness Of Breath) RF: 0 morphine 15 mg Tablet 15 mg PO Q8H PRN (Reason: pain) RF: 0 diazepam 5 mg tablet 5 mg PO BID PRN (Reason: Anxiety) RF: 0 metoclopramide HCl 10 mg Tablet 10 mg PO DAILY PRN (Reason: Nausea) RF: 0 magnesium 200 mg Tablet 200 mg PO DAILY RF: 0 triamcinolone acetonide 0.05 % Ointment 1 applic topical BID RF: 0 Simbrinza 1-0.2 % Drops,Suspension 1 drp ophthalmic (eye) BID RF: 0 Ocuvite 1 tab PO DAILY RF: 0 ropinirole 0.5 mg tablet 0.5 mg PO BEDTIME RF: 0 Referrals: Jesus Almanzar MD [Primary Care Provider] -
[2021-03-06] MEDS: ACYCLOVIR 400 MG TABLET PO (19:21)
[2021-03-06] MEDS: predniSONE 20 MG TABLET 60 MG PO (19:21)
[2021-03-06 19:32] VITALS: BP 183/80; PULSE 70; RESP 22; O2SAT 99
== END 2021-03-06 19:36 | disposition home or self-care (01) ==
PROVIDERS: Emergency Provider Emergency Medicine; PCP Internal Medicine
DX: G51.0 Bell's palsy (principal)
CPT/HCPCS: 99283

== ENCOUNTER 2021-03-27 13:38 | Emergency (ER) | payer MEDICARE, SELFPAY ==
[2021-03-27 13:47] VITALS: BP 198/95; PULSE 89; RESP 22; TEMP 36.9; O2SAT 95
--- NOTE | 2021-03-27 14:15 | ED.BACK ---
HPI - Back Pain/Injury General Chief Complaint: Back Pain/Injury Stated Complaint: pain in back, both arms and feet Time Seen by Provider: 03/27/21 13:47 Source: patient Mode of arrival: Ambulatory Limitations: no limitations History of Present Illness HPI Narrative: 65-year-old female former smoker with history of chronic migraines, hypertension, diabetes, adipose a dull Rocephin and cervical radiculopathy presents with a chief complaint of increasing sharp and stabbing pain running from the right side of her neck down into her right arm. She denies any numbness or tingling. She denies any weakness. She denies any falls or new injuries. She has had no fever or chills. She states that her pain is worse when she moves her arm or neck and improves with rest. She has been taking her medications as directed which include morphine sulfate 15 mg up to 4 times daily, and a low dose of gabapentin. She had recently been seen and evaluated here for left-sided facial droop and was diagnosed with Dinh's palsy. As a consequence of the treatment of Dinh's palsy including steroids she states that her neck and arm pain actually improved significantly until that medication wore off. MD Complaint: other Onset (ago): day(s) Duration: constant Similar Symptoms Previously: Yes Severity: moderate Quality: sharp Radiation: other (Right arm) Severity scale (1-10): 8 Exacerbating factors: movement Associated symptoms: denies other symptoms Related Data Home Medications Medication Instructions Recorded Confirmed Ocuvite 1 tab PO DAILY 12/29/18 12/29/18 albuterol sulfate 2 puff INHALATION Q4H PRN 12/29/18 12/29/18 brinzolamide-brimonidine 1 drp OPHTHALMIC (EYE) BID 12/29/18 12/29/18 [Simbrinza] citalopram 40 mg PO DAILY 12/29/18 12/29/18 clonidine HCl 0.3 mg PO BID 12/29/18 12/29/18 diazepam 5 mg PO BID PRN 12/29/18 12/29/18 latanoprost 1 drp OPHTHALMIC (EYE) DAILY 12/29/18 12/29/18 losartan-hydrochlorothiazide 1 tab PO DAILY 12/29/18 12/29/18 magnesium 200 mg PO DAILY 12/29/18 12/29/18 meclizine 25 mg PO DAILY PRN 12/29/18 12/29/18 metformin 500 mg PO DAILY 12/29/18 12/29/18 metoclopramide HCl 10 mg PO DAILY PRN 12/29/18 12/29/18 morphine 15 mg PO Q8H PRN 12/29/18 12/29/18 omeprazole 20 mg PO Q12H 12/29/18 12/29/18 ropinirole 0.5 mg PO BEDTIME 12/29/18 12/29/18 triamcinolone acetonide 1 applic TOPICAL BID 12/29/18 12/29/18 Previous Rx's Medication Instructions Recorded ondansetron 4 mg PO BID-TID PRN #10 tab 12/25/18 prednisone See Rx Instructions .ROUTE 03/27/21 .COMPLEX #30 tab Allergies Allergy/AdvReac Type Severity Reaction Status Date / Time Beta-Blockers Allergy Unknown Verified 03/06/21 17:25 (Beta-Adrenergic Bloc Corticosteroids Allergy Unknown Verified 03/06/21 17:25 (Glucocorticoids) neomycin Allergy Unknown Verified 03/06/21 17:25 zolpidem AdvReac Intermediate CONFUSION/A Verified 03/06/21 17:25 MNESIA Review of Systems Constitutional Constitutional: Denies chills, Denies fatigue, Denies fever(s), Denies frequent falls, Denies lethargy and Denies weakness Eyes Eyes: Denies change in vision, Denies eye discharge, Denies irritation and Denies loss of vision ENT Ears, Nose, Mouth, and Throat: Denies change in voice, Denies dizziness, Reports neck pain, Denies sore throat and Denies throat swelling Cardiovascular Cardiovascular: Denies chest pain, Denies irregular heart rhythm, Denies lightheadedness, Denies palpitations, Denies dyspnea, Denies dyspnea on exertion and Denies orthopnea Respiratory Respiratory: Denies cough, Denies dyspnea, Denies dyspnea on exertion and Denies wheezing Gastrointestinal Gastrointestinal: Denies abdominal pain, Denies change in bowel habits, Denies diarrhea, Denies nausea and Denies vomiting Musculoskeletal Musculoskeletal: Reports neck pain, Denies numbness and Reports radiating pain into limb Integumentary/Breasts Skin/Breast: Denies pruritus, Denies erythema, Denies rash and Denies wounds Neurologic Neurologic: Denies behavioral changes, Denies confusion, Denies dizziness, Denies frequent falls, Denies loss of vision, Denies numbness and Denies weakness Psychiatric Psychiatric: Denies anxiety, Denies behavioral changes, Denies confusion, Denies depression, Denies homicidal ideation and Denies suicidal ideation Endocrine Endocrine: Denies fatigue, Denies flushing and Denies palpitations Hematologic/Lymphatic Hematologic/Lymphatic: Denies easy bruising Allergic/Immunologic Allergic/Immunologic: Denies urticaria, Denies throat swelling and Denies wheezing Patient History Medical History Adiposa dolorosa Dinh's palsy Chronic migraine Depression Diabetes Headache Hypertension Social History Smoking Status: Former smoker alcohol intake: never substance use type: does not use Smoking Status: Former smoker alcohol intake frequency: 0-2 drinks per day Substance Use Type: does not use Exam Narrative Exam Narrative: GENERAL: [65] year old patient appears stated age. Well-developed patient, in mild distress. Obviously uncomfortable HEAD: Atraumatic. Normocephalic. EYES: Pupils equal round and reactive. Extraocular motions intact. No scleral icterus. No injection or drainage. ENT: Nose without bleeding, purulent drainage. Throat without erythema, tonsillar hypertrophy or exudate. Airway patent. NECK: Trachea midline. Tender to palpation in the right-sided paraspinal musculature, axial loading increases pain radiation into her right arm CARDIOVASCULAR: Regular rate and rhythm without murmurs, gallops, or rubs. RESPIRATORY: Clear to auscultation. Breath sounds equal bilaterally. No wheezes, rales, or rhonchi. GASTROINTESTINAL: Abdomen soft, non-tender, nondistended. EXTREMITIES: No edema or joint tenderness. No measured sensory or strength deficit of right upper extremity BACK: Nontender without deformity or crepitance. No flank tenderness. NEURO: AOx3. SKIN: No rash or erythema of visible areas Initial Vital Signs Initial Vital Signs: Vital Signs Temperature 98.5 F 03/27/21 13:47 Pulse Rate 89 03/27/21 13:47 Respiratory Rate 22 03/27/21 13:47 Blood Pressure 198/95 H 03/27/21 13:47 Pulse Oximetry 95 03/27/21 13:47 Course Orders Ordered: Discontinued Medications Hydromorphone HCl (Hydromorphone 1 Mg Inj) 1 mg IM NOW ONE Stop: 03/27/21 15:24 Last Admin: 03/27/21 15:43 Dose: 1 mg Documented by: GIANLUCA Prednisone (Prednisone 20 Mg Tablet) 60 mg PO NOW ONE Stop: 03/27/21 15:14 Last Admin: 03/27/21 15:16 Dose: 60 mg Documented by: BTONER Vital Signs Vital signs: Vital Signs - 8 hr 03/27/21 13:47 Temperature 98.5 F Pulse Rate 89 Respiratory Rate 22 Blood Pressure 198/95 H Pulse Oximetry 95 MDM - Back Pain/Injury MDM Narrative Medical decision making narrative: call to PCP to discuss plan moving forward. She says she has referrals to the pain injection doctor and prescriptions for more Morphine. She has an intolerance to gabapentin and refuses to initiate a new prescription. Given the fact that her symptoms improved tremendously with the steroid burst given for Dinh's palsy I discussed with her the possible benefit of another steroid taper. There is no indication of any neurologic emergency. Patient has significant improvement of symptoms with the above-stated therapies. Return precautions discussed. Plan and diagnosis agreed upon and discussed with patient and Discharge Plan Departure Patient Disposition: Home Clinical Impression: Cervical radiculopathy Instructions: DI for Cervical Radiculopathy Activity Restrictions/Additional Instructions: *You have been diagnosed with [cervical radiculopathy] *What to do: *Please continue to take your regular medications as directed. [x ] New medication prescriptions sent to your pharmacy: [[facility]] [ ] New medication written as a paper prescription [ ] No new medications given *Please follow up with your primary care provider in 2-3 days, call for an appointment. Let them know you were seen in the Emergency Department and that we ask that you be seen in follow up. We will electronically transmit a record of today's note if your PCP is in our system *If you do not have a primary care provider please contact the [facility] Resource line at [phone]. They will ask some questions about your medical history and help get you set up with a doctor in the community. *Return to Emergency Department if you should have any new, worsening or concerning symptoms, such as [fever greater than 101 F, shaking chills, worsening pain, persistent vomiting or other bothersome symptoms] Prescriptions: New prednisone 10 mg tablet See Rx Instructions .ROUTE .COMPLEX Qty: 30 RF: 0 No Action ondansetron 4 mg tablet,disintegrating 4 mg PO BID-TID PRN (Reason: nausea and vomiting) Qty: 10 RF: 0 metformin 500 mg Tablet 500 mg PO DAILY RF: 0 latanoprost 0.005 % Drops 1 drp ophthalmic (eye) DAILY RF: 0 citalopram 40 mg Tablet 40 mg PO DAILY RF: 0 clonidine HCl 0.3 mg tablet 0.3 mg PO BID RF: 0 losartan-hydrochlorothiazide 100-25 mg tablet 1 tab PO DAILY RF: 0 meclizine 25 mg Tablet 25 mg PO DAILY PRN (Reason: Vertigo) RF: 0 omeprazole 20 mg Capsule,Delayed Release(Dr/Ec) 20 mg PO Q12H RF: 0 albuterol sulfate 90 mcg/actuation Hfa Aerosol Inhaler 2 puff INHALATION Q4H PRN (Reason: Shortness Of Breath) RF: 0 morphine 15 mg Tablet 15 mg PO Q8H PRN (Reason: pain) RF: 0 diazepam 5 mg tablet 5 mg PO BID PRN (Reason: Anxiety) RF: 0 metoclopramide HCl 10 mg Tablet 10 mg PO DAILY PRN (Reason: Nausea) RF: 0 magnesium 200 mg Tablet 200 mg PO DAILY RF: 0 triamcinolone acetonide 0.05 % Ointment 1 applic topical BID RF: 0 Simbrinza 1-0.2 % Drops,Suspension 1 drp ophthalmic (eye) BID RF: 0 Ocuvite 1 tab PO DAILY RF: 0 ropinirole 0.5 mg tablet 0.5 mg PO BEDTIME RF: 0 Referrals: Jesus Almanzar MD [Primary Care Provider] -
[2021-03-27] MEDS: predniSONE 20 MG TABLET 60 MG PO (15:16)
[2021-03-27] MEDS: HYDROMORPHONE 1 MG INJ IM (15:43)
--- NOTE | 2021-03-27 16:47 | PC.NURSE ---
pt requested a sling to help with pain to left side.
[2021-03-27 16:49] VITALS: BP 154/76; PULSE 68; RESP 18; O2SAT 94
== END 2021-03-27 16:49 | disposition home or self-care (01) ==
PROVIDERS: Emergency Provider Emergency Medicine; PCP Internal Medicine
DX: M54.12 Radiculopathy, cervical region (principal)
CPT/HCPCS: 96372; 99283; 99284; J1170

== ENCOUNTER → 2022-02-06 14:58 | Outpatient (CLI) | payer MEDICARE, SELFPAY ==
--- NOTE | 2022-02-06 15:04 | DI.US.S_ITS ---
PROCEDURE: US PERIPH VENOUS LOW EXTREM RT INDICATIONS: Clinical concern for DVT/Pain in right lower leg TECHNIQUE: Real-time imaging, as well as color and pulse Doppler interrogation, were performed of the lower extremity deep veins from the inguinal ligament to the popliteal fossa. COMPARISON: [facility], , PVE UNILATERAL RIGHT, 03/17/2014, 4:49. FINDINGS: The common femoral, femoral and popliteal veins are normally compressible, and free of intraluminal thrombus. Color and pulse Doppler demonstrate normal phasic intraluminal flow. There is normal augmentation response to distal compression maneuver. Additional, dedicated ultrasound scanning is performed at the area of right calf pain. No focal ultrasound abnormalities are seen within this region. IMPRESSION: Negative for deep venous thrombosis. Dictated by: Jaxon Perdue M.D. on 02/06/2022 at 15:29 Approved by: Jaxon Perdue M.D. on 02/06/2022 at 15:29
== END ==
PROVIDERS: PCP Internal Medicine; Referring Provider Internal Medicine; Visit Provider Internal Medicine
DX: M79.661 Pain in right lower leg (principal)
CPT/HCPCS: 93971

== ENCOUNTER → 2022-03-24 09:49 | Outpatient (CLI) | payer MEDICARE, SELFPAY ==
--- NOTE | 2022-03-24 | DI.MG.S_ITS ---
BILATERAL DIGITAL SCREENING MAMMOGRAM 3D/2D WITH CAD: 03/24/2022 CLINICAL: Routine screening. Family history of breast cancer. Comparison is made to exams dated: 03/01/2019 mammogram, 10/01/2017 mammogram, and 05/04/2014 mammogram - [facility]. There are scattered fibroglandular elements in both breasts. Current study was also evaluated with a Computer Aided Detection (CAD) system. No significant masses, calcifications, or other findings are seen in either breast. There has been no significant interval change. IMPRESSION: NEGATIVE There is no mammographic evidence of malignancy. A 1 year screening mammogram is recommended. This exam was interpreted at Station ID: [id number]. NOTE: For mammograms, a report in lay terms will be sent to the patient. Approximately 15% of breast malignancies will not be visualized mammographically. In the management of a palpable breast mass, a negative mammogram must not discourage biopsy of a clinically suspicious lesion. Electronically Signed By: Lupillo reynoso/pipo:03/24/2022 10:31:30 letter sent: Normal Exam ACR BI-RADS Category 1: Negative [id number]
== END ==
PROVIDERS: PCP Internal Medicine; Referring Provider Internal Medicine; Visit Provider Internal Medicine
DX: Z12.31 Encounter for screening mammogram for malignant neoplasm of breast (principal); Z80.3 Family history of malignant neoplasm of breast
CPT/HCPCS: 77063; 77067

== ENCOUNTER 2022-08-02 14:59 | Inpatient (IN) | payer OTHER, SELFPAY ==
[2022-08-02] VITALS (10 sets, daily range): BP systolic 133–154; BP diastolic 55–70; PULSE 56–62; RESP 18; TEMP 36.6–37.2; O2SAT 96–99; BMI 34.7; BMI 34.2
--- NOTE | 2022-08-02 16:43 | DI.RAD.S_ITS ---
PROCEDURE: XR FOOT LT MIN 3V INDICATIONS: toes infected. TECHNIQUE: 3 views of the foot were acquired. COMPARISON: None. FINDINGS: Bones: There is potential erosion seen along the lateral aspect of the distal phalanx of the great toe. Age-appropriate bony degenerative changes are seen. A plantar calcaneal spur is seen. Soft tissues: Generalized soft tissue swelling is seen distally IMPRESSION: Potential great toe erosion seen by plain film. If there is strong suspicion for developing osteomyelitis, please consider a dedicated MRI without and with contrast for further evaluation (assuming that there is no contraindication to MRI). Dictated by: Jaxon Perdue M.D. on 08/02/2022 at 16:34 Approved by: Jaxon Perdue M.D. on 08/02/2022 at 16:35
--- NOTE | 2022-08-02 16:43 | DI.RAD.S_ITS ---
PROCEDURE: XR FOOT RT MIN 3V INDICATIONS: toes infected, cellulitis right foot. TECHNIQUE: 3 views of the foot were acquired. COMPARISON: [facility], CR, XR FOOT LT MIN 3V, 08/02/2022, 16:43. FINDINGS: Bones: There is potential minimal erosions seen involving the distal aspect of the distal phalanx of the great toe. Generalized bony degenerative changes are seen. A plantar calcaneal spur is seen. Soft tissues: Relatively prominent distal soft tissue swelling is seen. IMPRESSION: Potential great toe erosion. Relatively prominent distal soft tissue swelling is seen. If there is strong suspicion for developing osteomyelitis, please consider a dedicated MRI without and with contrast for further evaluation (assuming that there is no contraindication to MRI). Dictated by: Jaxon Perdue M.D. on 08/02/2022 at 16:36 Approved by: Jaxon Perdue M.D. on 08/02/2022 at 16:36
[2022-08-02 17:07] LABS: Appearance Urine UA CLEAR; Bilirubin Urine UA NEGATIVE (NEGATIVE); Color Urine UA YELLOW; Glucose Urine UA NEGATIVE (Negative); Ketones Urine UA NEGATIVE (NEGATIVE); Leukocyte Esterase Urine UA NEGATIVE (NEGATIVE); Nitrite Urine UA NEGATIVE (Negative); Occult Blood Urine UA NEGATIVE (Negative); Protein Urine UA NEGATIVE (Negative); Specific Gravity Urine UA <=1.005 (1.000-1.035); Urobilinogen Urine UA 0.2 E.U./dL (0.2)
[2022-08-02 17:19] LABS: Bacteria Urine None Seen; Culture Indicated Urine Cult Not Indicated; RBC Urine 0-1/HPF (0-5/HPF); Squamous Epithelial Cell Urine 0-1 /HPF (0-5/HPF); WBC Urine 0-1/HPF (0-5/HPF)
[2022-08-02 17:47] LABS: Alanine Aminotransferase 9 IU/L (<35); Albumin 4.3 g/dL (3.5-5.0); Albumin Globulin Ratio 1.2 (1.0-2.8); Alkaline Phosphatase 72 U/L (38-126); Aspartate Aminotransferase 20 IU/L (14-36); BUN Creatinine Ratio 14.5 (6-22); Bilirubin Total 0.8 mg/dL (0.2-1.3); Blood Urea Nitrogen 12 mg/dL (7-17); C-Reactive Protein Quant 1.8 mg/dL (<1.0); Carbon Dioxide 32 mmol/L (22-32); Chloride 97 mmol/L (98-107); Estimated Glomerular Filt Rate > 60 mL/min (>60); Globulin 3.7 g/dL (1.7-4.1); Glucose 103 mg/dL (80-110); HEMOLYSIS < 15 (0-50); Potassium 3.5 mmol/L (3.4-5.1); Sodium 137 mmol/L (137-145)
[2022-08-02 18:13] LABS: Add Manual Diff / Slide Review NO; Basophils Absolute Auto 0 /uL (0-100); Basophils Percent Auto 0.5 % (0-2); Eosinophils Absolute Auto 100 /uL (0-450); Eosinophils Percent Auto 1.7 % (2-4); Hematocrit 36.7 % (36-46); Hemoglobin 12.6 g/dL (12.0-16.0); Lymphocytes Absolute Auto 1400 /uL (1100-4500); Mean Corpuscular HGB Conc 34.4 % (30-36); Mean Corpuscular Hemoglobin 29.5 PG (26-34); Mean Corpuscular Volume 85.9 fL (80-100); Monocytes Absolute Auto 500 /uL (0-900); Monocytes Percent Auto 5.7 % (3-14); Neutrophils Absolute Auto 6600 /uL (1500-7000); Neutrophils Percent Auto 76.1 % (50-75); Platelet Count 171 X10^3/uL (150-400); Red Blood Cell Count 4.28 X10^6/uL (4.0-5.2); Red Cell Distribution Width 14.5 % (11.6-14.8); White Blood Cell Count 8.7 X10^3/uL (4.5-11.0)
[2022-08-02] MEDS: CLINDAMYCIN 900 MG/50 ML PIGGYBACK 50 MG IV (18:13)
[2022-08-02 18:17] LABS: Erythrocyte Sedimentation Rate 34 MM/HR (0-20)
--- NOTE | 2022-08-02 18:51 | ED_ITS ---
HPI - Extremity Injury (Lower) <Raymond Cates PA-C - Last Filed: 08/08/22 12:10> General Chief Complaint: Extremity Injury, Lower Stated Complaint: right foot injury (Great Toe) swelling Time Seen by Provider: 08/02/22 16:43 Source: patient Mode of arrival: Ambulatory History of Present Illness HPI Narrative: Patient is a 66-year-old female presents to the emergency room today with complaint of pain swelling redness and a foul odor to right great toe. States the pain and swelling started 2 days ago. States she initially jammed the toe about 4 weeks ago and that it has failed to heal. Also has pus that she noticed to start draining from the toe yesterday too. Has had associated nausea but denies vomiting shortness of breath chest pain fevers or chills. Admits to a previous history of being prediabetic but no diabetes diagnosis at this time. Related Data Home Medications Medication Instructions Recorded Confirmed Ocuvite 1 tab PO DAILY 12/29/18 12/29/18 albuterol sulfate 90 mcg/actuation 2 puff inhalation Q4H PRN 12/29/18 12/29/18 aerosol inhaler Shortness Of Breath brinzolamide 1 %-brimonidine 0.2 % 1 drp ophthalmic (eye) BID 12/29/18 12/29/18 eye drops,suspension (Simbrinza) citalopram 40 mg tablet 40 mg PO DAILY 12/29/18 12/29/18 clonidine HCl 0.3 mg tablet 0.3 mg PO BID 12/29/18 12/29/18 diazepam 5 mg tablet 5 mg PO BID PRN Anxiety 12/29/18 12/29/18 latanoprost 0.005 % eye drops 1 drp ophthalmic (eye) DAILY 12/29/18 12/29/18 losartan 100 1 tab PO DAILY 12/29/18 12/29/18 mg-hydrochlorothiazide 25 mg tablet magnesium 200 mg tablet 200 mg PO DAILY 12/29/18 12/29/18 meclizine 25 mg tablet 25 mg PO DAILY PRN Vertigo 12/29/18 12/29/18 metformin 500 mg tablet 500 mg PO DAILY 12/29/18 12/29/18 metoclopramide HCl 10 mg tablet 10 mg PO DAILY PRN Nausea 03/13/19 03/13/19 morphine 15 mg immediate release 15 mg PO Q8H PRN pain 12/29/18 12/29/18 tablet omeprazole 20 mg capsule,delayed 20 mg PO Q12H 12/29/18 12/29/18 release ropinirole 0.5 mg tablet 0.5 mg PO BEDTIME 12/29/18 12/29/18 triamcinolone acetonide 0.05 % 1 applic topical BID 12/29/18 12/29/18 topical ointment Previous Rx's Medication Instructions Recorded ondansetron 4 mg disintegrating 4 mg PO BID-TID PRN nausea and 12/25/18 tablet vomiting #10 tabs prednisone 10 mg tablet See Rx Instructions .Route 03/27/21 .COMPLEX #30 tabs Allergies Allergy/AdvReac Type Severity Reaction Status Date / Time Beta-Blockers Allergy Unknown Verified 03/06/21 17:25 (Beta-Adrenergic Bloc Corticosteroids Allergy Unknown Verified 03/06/21 17:25 (Glucocorticoids) neomycin Allergy Unknown Verified 03/06/21 17:25 NSAIDS (Non-Steroidal Allergy Verified 08/02/22 15:27 Anti-Inflamma zolpidem AdvReac Intermediate CONFUSION/A Verified 03/06/21 17:25 MNESIA Review of Systems <Raymond Cates PA-C - Last Filed: 08/08/22 12:10> Review of Systems Narrative: R.O.S.: General: No fever, chills or fatigue. Cardiovascular: No chest pain or palpitations Respiratory: No S.O.B. HEENT: No congestion, ear pain, rhinorrhea, sore throat or tinnitus Gastrointestinal: No nausea or vomiting : No urinary concerns Skin: Pain swelling and redness to right great toe Musculoskeletal: No pain in muscles or joints, no limitation of range of motion, no paresthesia or numbness. ?? Neurological: Awake, alert and in not apparent distress. No Headaches, changes in vision or other related neurological concerns. Patient History <Raymond Cates PA-C - Last Filed: 08/08/22 12:10> Medical History (Updated 08/03/22 @ 09:53 by Stacie Uribe MD) Adiposa dolorosa Dinh's palsy Chronic migraine Chronic pain Depression Depression with anxiety Dercum disease Diabetes GERD (gastroesophageal reflux disease) Headache Hypertension Neuropathy Opiate dependence, continuous Restless leg syndrome Surgical History (Updated 08/02/22 @ 22:04 by [facility] History of cholecystectomy History of hysterectomy Family History Mother Hypertension Renal failure Father Renal failure Congestive heart failure Social History household members: spouse Smoking Status: Former smoker alcohol intake: never substance use type: does not use Smoking Status: Former smoker alcohol intake frequency: 0-2 drinks per day Substance Use Type: does not use and prescription drug Exam <Raymond Cates PA-C - Last Filed: 08/08/22 12:10> Narrative Exam Narrative: Physical Exam: ? General: normal appearance, well developed, well nourished, alert, and awake. Not in acute distress. ? Head: Normocephalic, no lesions. Chest: Lungs CTAB, no rales, rhonchi or wheezes. ?? Heart: RRR, no murmurs, rubs or gallops. Eyes: PERRLA, EOM's full, conjunctivae clear. ? Neuro: Physiological, no localizing findings, CN3-12 intact. ?? Extremities: Warm, well perfused, FROM, no deformities, no edema. ?? Skin: Patient has swelling erythema and tenderness to touch to the right great toe on the dorsal and lateral areas. Patient has decreased sensation to touch on the volar surface of the right great toe. The toe had discharge of purulent secretions and a foul odor before cleaning. ? PSYCHIATRIC: The mood is good, no blunted affect. Speech is clear. Thought process is linear, thought content is appropriate. The voice is without significant inflection. Gastrointestinal: Soft; NT; ND; Pos BS with Neg. rebound tenderness. No scars or major deformities noted on Visual Inspection. Initial Vital Signs Initial Vital Signs: Vital Signs Temperature 98 F 08/02/22 15:27 Pulse Rate 62 08/02/22 15:27 Respiratory Rate 18 08/02/22 15:27 Blood Pressure 133/63 08/02/22 15:27 Pulse Oximetry 96 08/02/22 15:27 Oxygen Delivery Method 08/02/22 15:27 <Carlos Healy DO - Last Filed: 08/08/22 21:33> Initial Vital Signs Initial Vital Signs: Vital Signs Temperature 98 F 08/02/22 15:27 Pulse Rate 62 08/02/22 15:27 Respiratory Rate 18 08/02/22 15:27 Blood Pressure 133/63 08/02/22 15:27 Pulse Oximetry 96 08/02/22 15:27 Oxygen Delivery Method 08/02/22 15:27 Course <Raymond Cates PA-C - Last Filed: 08/08/22 12:10> Orders Ordered: Discontinued Medications Acetaminophen (Acetaminophen 325 Mg Tablet) 650 mg PO Q6HR PRN PRN Reason: Fever/Mild Pain (1-3) Last Admin: 08/05/22 02:27 Dose: 650 mg Documented By: Admin: 08/04/22 20:44 Dose: 650 mg Documented By: Admin: 08/02/22 20:13 Dose: 650 mg Documented By: MICHELLE Citalopram Hydrobromide (Citalopram 10 Mg Tablet) 40 mg PO DAILY REPLACED BY [facility] Last Admin: 08/05/22 08:53 Dose: 40 mg Documented By: Admin: 08/04/22 08:06 Dose: 40 mg Documented By: Admin: 08/03/22 09:46 Dose: 40 mg Documented By: MADDI Dextrose (Dextrose 50 % In Water 25 Gm/50 Ml Syringe) 25 gm IV PRN PRN PRN Reason: Hypoglycemia Diazepam (Diazepam 5 Mg Tablet) 5 mg PO BID PRN PRN Reason: Anxiety Enoxaparin Sodium (Enoxaparin 40 Mg/0.4 Ml Syringe) 40 mg SUBCUT DAILY REPLACED BY [facility] Last Admin: 08/05/22 08:53 Dose: 40 mg Documented By: Admin: 08/04/22 08:07 Dose: 40 mg Documented By: ROWDY Hydrochlorothiazide (Hydrochlorothiazide 25 Mg Tablet) 25 mg PO DAILY REPLACED BY [facility] Last Admin: 08/05/22 08:53 Dose: 25 mg Documented By: Admin: 08/04/22 08:07 Dose: 25 mg Documented By: Admin: 08/03/22 09:47 Dose: 25 mg Documented By: MADDI Hydromorphone HCl (Hydromorphone 0.5 Mg Inj) 0.5 mg IV Q4H PRN PRN Reason: Breakthrough pain only (5-10) Clindamycin Phosphate (Cleocin) 900 mg in 50 mls @ 50 mls/hr IV NOW ONE Stop: 08/02/22 17:44 Last Infusion: 08/02/22 19:37 Dose: 0 mls/hr Documented By: Admin: 08/02/22 18:13 Dose: 50 mls/hr Documented By: VERNELL Vancomycin HCl/Dextrose (Vancomycin) 2,000 mg in 400 mls @ 200 mls/hr IV NOW ONE Stop: 08/02/22 21:01 Last Infusion: 08/02/22 23:58 Dose: 0 mls/hr Documented By: Infusion: 08/02/22 20:26 Dose: 200 mls/hr Documented By: Admin: 08/02/22 20:16 Dose: 200 mls/hr Documented By: RB Piperacillin Sod/Tazobactam (Sod 4.5 gm/ Sodium Chloride) 100 mls @ 200 mls/hr IV NOW ONE Stop: 08/02/22 19:01 Last Infusion: 08/02/22 20:02 Dose: 0 mls/hr Documented By: Admin: 08/02/22 19:25 Dose: 200 mls/hr Documented By: MARTINEZ Lactated Ringer's (Lactated Ringers) 1,000 mls @ 60 mls/hr IV CONT EYAD Last Admin: 08/03/22 19:07 Dose: 60 mls/hr Documented By: Infusion: 08/03/22 15:19 Dose: 60 mls/hr Documented By: Admin: 08/02/22 22:38 Dose: 60 mls/hr Documented By: LIZZY Ceftriaxone Sodium 1,000 mg/ (Sodium Chloride) 100 mls @ 200 mls/hr IV Q24H EYAD Last Infusion: 08/02/22 23:58 Dose: 0 mls/hr Documented By: Admin: 08/02/22 22:46 Dose: 200 mls/hr Documented By: LIZZY Vancomycin HCl (Vancomycin) 1,000 mg in 200 mls @ 125 mls/hr IV Q12H EYAD Vancomycin HCl (Vancomycin) 1,250 mg in 250 mls @ 250 mls/hr IV Q12H EYAD Piperacillin Sod/Tazobactam (Sod 3.375 gm/ Sodium Chloride) 100 mls @ 25 mls/hr IV Q8H EYAD Last Infusion: 08/05/22 18:11 Dose: 0 mls/hr Documented By: Admin: 08/05/22 18:10 Dose: Not Given Documented By: Admin: 08/05/22 06:57 Dose: 25 mls/hr Documented By: Infusion: 08/05/22 03:30 Dose: 0 mls/hr Documented By: Admin: 08/04/22 23:34 Dose: 25 mls/hr Documented By: Infusion: 08/04/22 19:21 Dose: 25 mls/hr Documented By: Admin: 08/04/22 15:21 Dose: 25 mls/hr Documented By: Infusion: 08/04/22 11:53 Dose: 25 mls/hr Documented By: Admin: 08/04/22 07:53 Dose: 25 mls/hr Documented By: Infusion: 08/04/22 04:50 Dose: 0 mls/hr Documented By: Admin: 08/03/22 23:07 Dose: 25 mls/hr Documented By: Infusion: 08/03/22 21:07 Dose: 0 mls/hr Documented By: Admin: 08/03/22 15:03 Dose: 25 mls/hr Documented By: Infusion: 08/03/22 14:00 Dose: 25 mls/hr Documented By: Admin: 08/03/22 10:00 Dose: 25 mls/hr Documented By: ALIREZA Vancomycin HCl/Dextrose (Vancomycin) 2,000 mg in 400 mls @ 200 mls/hr IV Q24H REPLACED BY [facility] Last Admin: 08/04/22 10:24 Dose: Not Given Documented By: LDV Cefazolin Sodium/Dextrose (Ancef) 100 mls @ 200 mls/hr IV Q8H REPLACED BY [facility] Last Infusion: 08/05/22 18:12 Dose: 0 mls/hr Documented By: Admin: 08/05/22 11:41 Dose: 200 mls/hr Documented By: Infusion: 08/05/22 02:35 Dose: 0 mls/hr Documented By: Admin: 08/05/22 02:04 Dose: 200 mls/hr Documented By: Infusion: 08/04/22 19:00 Dose: 0 mls/hr Documented By: Admin: 08/04/22 18:24 Dose: 200 mls/hr Documented By: Infusion: 08/04/22 15:22 Dose: 0 mls/hr Documented By: Admin: 08/04/22 12:33 Dose: 200 mls/hr Documented By: LDV Ertapenem 1 gm/ Sodium (Chloride) 100 mls @ 200 mls/hr IV NOW ONE Stop: 08/05/22 15:31 Last Admin: 08/05/22 15:06 Dose: 200 mls/hr Documented By: EM Insulin Human Lispro (Insulin Lispro 100 Unit/Ml 3ml Vial) 0 unit SUBCUT ACHS EYAD; Protocol Last Admin: 08/05/22 18:11 Dose: Not Given Documented By: Admin: 08/05/22 12:49 Dose: Not Given Documented By: Admin: 08/05/22 07:06 Dose: Not Given Documented By: Admin: 08/04/22 21:02 Dose: Not Given Documented By: Admin: 08/04/22 17:36 Dose: Not Given Documented By: Admin: 08/04/22 11:47 Dose: Not Given Documented By: Admin: 08/04/22 07:47 Dose: Not Given Documented By: Admin: 08/03/22 21:09 Dose: Not Given Documented By: Admin: 08/03/22 17:56 Dose: Not Given Documented By: Admin: 08/03/22 13:33 Dose: Not Given Documented By: Admin: 08/03/22 09:46 Dose: Not Given Documented By: [facility] Admin: 08/02/22 22:26 Dose: Not Given Documented By: JT Lidocaine HCl (Lidocaine 2% Inj Mdv 20ml) 20 ml INJ INTRA-OP ONE Stop: 08/04/22 11:28 Last Admin: 08/04/22 12:34 Dose: 20 ml Documented By: GUIDOV Losartan Potassium (Losartan 50 Mg Tablet) 100 mg PO DAILY REPLACED BY [facility] Last Admin: 08/05/22 08:52 Dose: 100 mg Documented By: Admin: 08/04/22 08:07 Dose: 100 mg Documented By: Admin: 08/03/22 09:46 Dose: 100 mg Documented By: [facility] Morphine Sulfate (Morphine 2 Mg/Ml Inj) 2 mg IV Q4HR PRN PRN Reason: Pain 1-10 Last Admin: 08/04/22 18:23 Dose: 2 mg Documented By: LDViri Admin: 08/04/22 12:47 Dose: 2 mg Documented By: Admin: 08/03/22 09:47 Dose: 2 mg Documented By: Admin: 08/02/22 22:46 Dose: 2 mg Documented By: LIZZY Morphine Sulfate (Morphine Er 15 Mg Tablet) 15 mg PO Q8HR REPLACED BY [facility] Last Admin: 08/05/22 15:04 Dose: 15 mg Documented By: Admin: 08/05/22 05:31 Dose: 15 mg Documented By: Admin: 08/04/22 20:56 Dose: 15 mg Documented By: Admin: 08/04/22 15:22 Dose: 15 mg Documented By: Admin: 08/04/22 05:21 Dose: 15 mg Documented By: Admin: 08/03/22 21:07 Dose: 15 mg Documented By: Admin: 08/03/22 14:21 Dose: Not Given Documented By: Admin: 08/03/22 14:04 Dose: 15 mg Documented By: MADDI Morphine Sulfate (Morphine Ir 15 Mg Tablet) 15 mg PO Q4H PRN PRN Reason: Pain, Moderate (4-6) Last Admin: 08/05/22 09:08 Dose: 15 mg Documented By: MARISOL Naloxone HCl (Naloxone 0.4 Mg/Ml Vial) 0.1 mg IV Q2MIN PRN PRN Reason: Opiate Reversal Ondansetron HCl (Ondansetron 4 Mg/2 Ml Inj) 4 mg IV Q6HR PRN PRN Reason: Nausea And Vomiting Potassium Chloride (Potassium Chloride 20 Meq Tab) 40 meq PO NOW ONE Stop: 08/03/22 08:17 Last Admin: 08/03/22 10:00 Dose: 40 meq Documented By: ALIREZA Potassium Chloride (Potassium Chloride 20 Meq Tab) 40 meq PO NOW ONE Stop: 08/04/22 09:46 Last Admin: 08/04/22 12:34 Dose: 40 meq Documented By: ROWDY Pregabalin (Pregabalin 50 Mg Capsule) 100 mg PO TID REPLACED BY [facility] Last Admin: 08/05/22 15:05 Dose: 100 mg Documented By: Admin: 08/05/22 08:53 Dose: 100 mg Documented By: Admin: 08/04/22 20:44 Dose: 100 mg Documented By: Admin: 08/04/22 15:22 Dose: 100 mg Documented By: Admin: 08/04/22 08:07 Dose: 100 mg Documented By: Admin: 08/03/22 21:07 Dose: 100 mg Documented By: Admin: 08/03/22 15:02 Dose: 100 mg Documented By: Admin: 08/03/22 09:47 Dose: 100 mg Documented By: Admin: 08/02/22 22:35 Dose: 100 mg Documented By: LIZZY Ropinirole HCl (Ropinirole 0.25 Mg Tablet) 0.5 mg PO BEDTIME REPLACED BY [facility] Last Admin: 08/04/22 20:45 Dose: Not Given Documented By: Admin: 08/03/22 21:07 Dose: 0.5 mg Documented By: Admin: 08/02/22 22:35 Dose: 0.5 mg Documented By: LIZZY Ropinirole HCl (Ropinirole 0.25 Mg Tablet) 0.5 mg PO BEDTIME REPLACED BY [facility] Last Admin: 08/02/22 22:35 Dose: Not Given Documented By: LIZZY Vancomycin HCl (Vancomycin Per Pharmacy) 1 request [facility] [place] ONE Stop: 08/02/22 19:49 Last Admin: 08/02/22 22:47 Dose: Not Given Documented By: LIZZY Vancomycin HCl (Vancomycin Trough) 1 request [facility] [place] 0730 REPLACED BY [facility] Stop: 08/07/22 07:31 Vancomycin HCl (Vancomycin Peak) 1 request [facility] [place] 1100 REPLACED BY [facility] Stop: 08/07/22 11:01 Vital Signs Vital signs: Vital Signs - 8 hr 08/02/22 15:27 Temperature 98 F Pulse Rate 62 Respiratory Rate 18 Blood Pressure 133/63 Pulse Oximetry 96 Oxygen Delivery Method Room Air <Carlos Healy, DO - Last Filed: 08/08/22 21:33> Orders Ordered: Discontinued Medications Acetaminophen (Acetaminophen 325 Mg Tablet) 650 mg PO Q6HR PRN PRN Reason: Fever/Mild Pain (1-3) Last Admin: 08/05/22 02:27 Dose: 650 mg Documented By: Admin: 08/04/22 20:44 Dose: 650 mg Documented By: Admin: 08/02/22 20:13 Dose: 650 mg Documented By: MICHELLE Citalopram Hydrobromide (Citalopram 10 Mg Tablet) 40 mg PO DAILY REPLACED BY [facility] Last Admin: 08/05/22 08:53 Dose: 40 mg Documented By: Admin: 08/04/22 08:06 Dose: 40 mg Documented By: Admin: 08/03/22 09:46 Dose: 40 mg Documented By: MADDI Dextrose (Dextrose 50 % In Water 25 Gm/50 Ml Syringe) 25 gm IV PRN PRN PRN Reason: Hypoglycemia Diazepam (Diazepam 5 Mg Tablet) 5 mg PO BID PRN PRN Reason: Anxiety Enoxaparin Sodium (Enoxaparin 40 Mg/0.4 Ml Syringe) 40 mg SUBCUT DAILY REPLACED BY [facility] Last Admin: 08/05/22 08:53 Dose: 40 mg Documented By: Admin: 08/04/22 08:07 Dose: 40 mg Documented By: ROWDY Hydrochlorothiazide (Hydrochlorothiazide 25 Mg Tablet) 25 mg PO DAILY REPLACED BY [facility] Last Admin: 08/05/22 08:53 Dose: 25 mg Documented By: Admin: 08/04/22 08:07 Dose: 25 mg Documented By: Admin: 08/03/22 09:47 Dose: 25 mg Documented By: MADDI Hydromorphone HCl (Hydromorphone 0.5 Mg Inj) 0.5 mg IV Q4H PRN PRN Reason: Breakthrough pain only (5-10) Clindamycin Phosphate (Cleocin) 900 mg in 50 mls @ 50 mls/hr IV NOW ONE Stop: 08/02/22 17:44 Last Infusion: 08/02/22 19:37 Dose: 0 mls/hr Documented By: Admin: 08/02/22 18:13 Dose: 50 mls/hr Documented By: VERNELL Vancomycin HCl/Dextrose (Vancomycin) 2,000 mg in 400 mls @ 200 mls/hr IV NOW ONE Stop: 08/02/22 21:01 Last Infusion: 08/02/22 23:58 Dose: 0 mls/hr Documented By: Infusion: 08/02/22 20:26 Dose: 200 mls/hr Documented By: Admin: 08/02/22 20:16 Dose: 200 mls/hr Documented By: MICHELLE Piperacillin Sod/Tazobactam (Sod 4.5 gm/ Sodium Chloride) 100 mls @ 200 mls/hr IV NOW ONE Stop: 08/02/22 19:01 Last Infusion: 08/02/22 20:02 Dose: 0 mls/hr Documented By: Admin: 08/02/22 19:25 Dose: 200 mls/hr Documented By: MARTINEZ Lactated Ringer's (Lactated Ringers) 1,000 mls @ 60 mls/hr IV CONT EYAD Last Admin: 08/03/22 19:07 Dose: 60 mls/hr Documented By: Infusion: 08/03/22 15:19 Dose: 60 mls/hr Documented By: Admin: 08/02/22 22:38 Dose: 60 mls/hr Documented By: LIZZY Ceftriaxone Sodium 1,000 mg/ (Sodium Chloride) 100 mls @ 200 mls/hr IV Q24H EYAD Last Infusion: 08/02/22 23:58 Dose: 0 mls/hr Documented By: Admin: 08/02/22 22:46 Dose: 200 mls/hr Documented By: LIZZY Vancomycin HCl (Vancomycin) 1,000 mg in 200 mls @ 125 mls/hr IV Q12H EYAD Vancomycin HCl (Vancomycin) 1,250 mg in 250 mls @ 250 mls/hr IV Q12H EYAD Piperacillin Sod/Tazobactam (Sod 3.375 gm/ Sodium Chloride) 100 mls @ 25 mls/hr IV Q8H EYAD Last Infusion: 08/05/22 18:11 Dose: 0 mls/hr Documented By: Admin: 08/05/22 18:10 Dose: Not Given Documented By: Admin: 08/05/22 06:57 Dose: 25 mls/hr Documented By: Infusion: 08/05/22 03:30 Dose: 0 mls/hr Documented By: Admin: 08/04/22 23:34 Dose: 25 mls/hr Documented By: Infusion: 08/04/22 19:21 Dose: 25 mls/hr Documented By: Admin: 08/04/22 15:21 Dose: 25 mls/hr Documented By: Infusion: 08/04/22 11:53 Dose: 25 mls/hr Documented By: Admin: 08/04/22 07:53 Dose: 25 mls/hr Documented By: Infusion: 08/04/22 04:50 Dose: 0 mls/hr Documented By: Admin: 08/03/22 23:07 Dose: 25 mls/hr Documented By: Infusion: 08/03/22 21:07 Dose: 0 mls/hr Documented By: Admin: 08/03/22 15:03 Dose: 25 mls/hr Documented By: Infusion: 08/03/22 14:00 Dose: 25 mls/hr Documented By: LCAzul Admin: 08/03/22 10:00 Dose: 25 mls/hr Documented By: AKP Vancomycin HCl/Dextrose (Vancomycin) 2,000 mg in 400 mls @ 200 mls/hr IV Q24H REPLACED BY [facility] Last Admin: 08/04/22 10:24 Dose: Not Given Documented By: LDV Cefazolin Sodium/Dextrose (Ancef) 100 mls @ 200 mls/hr IV Q8H REPLACED BY [facility] Last Infusion: 08/05/22 18:12 Dose: 0 mls/hr Documented By: Admin: 08/05/22 11:41 Dose: 200 mls/hr Documented By: Infusion: 08/05/22 02:35 Dose: 0 mls/hr Documented By: Admin: 08/05/22 02:04 Dose: 200 mls/hr Documented By: Infusion: 08/04/22 19:00 Dose: 0 mls/hr Documented By: Admin: 08/04/22 18:24 Dose: 200 mls/hr Documented By: Infusion: 08/04/22 15:22 Dose: 0 mls/hr Documented By: Admin: 08/04/22 12:33 Dose: 200 mls/hr Documented By: LDV Ertapenem 1 gm/ Sodium (Chloride) 100 mls @ 200 mls/hr IV NOW ONE Stop: 08/05/22 15:31 Last Admin: 08/05/22 15:06 Dose: 200 mls/hr Documented By: EM Insulin Human Lispro (Insulin Lispro 100 Unit/Ml 3ml Vial) 0 unit SUBCUT ACHS EYAD; Protocol Last Admin: 08/05/22 18:11 Dose: Not Given Documented By: Admin: 08/05/22 12:49 Dose: Not Given Documented By: Admin: 08/05/22 07:06 Dose: Not Given Documented By: Admin: 08/04/22 21:02 Dose: Not Given Documented By: Admin: 08/04/22 17:36 Dose: Not Given Documented By: Admin: 08/04/22 11:47 Dose: Not Given Documented By: Admin: 08/04/22 07:47 Dose: Not Given Documented By: Admin: 08/03/22 21:09 Dose: Not Given Documented By: Admin: 08/03/22 17:56 Dose: Not Given Documented By: Admin: 08/03/22 13:33 Dose: Not Given Documented By: Admin: 08/03/22 09:46 Dose: Not Given Documented By: Admin: 08/02/22 22:26 Dose: Not Given Documented By: LIZZY Lidocaine HCl (Lidocaine 2% Inj Mdv 20ml) 20 ml INJ INTRA-OP ONE Stop: 08/04/22 11:28 Last Admin: 08/04/22 12:34 Dose: 20 ml Documented By: ROWDY Losartan Potassium (Losartan 50 Mg Tablet) 100 mg PO DAILY REPLACED BY [facility] Last Admin: 08/05/22 08:52 Dose: 100 mg Documented By: Admin: 08/04/22 08:07 Dose: 100 mg Documented By: Admin: 08/03/22 09:46 Dose: 100 mg Documented By: MADDI Morphine Sulfate (Morphine 2 Mg/Ml Inj) 2 mg IV Q4HR PRN PRN Reason: Pain 1-10 Last Admin: 08/04/22 18:23 Dose: 2 mg Documented By: Admin: 08/04/22 12:47 Dose: 2 mg Documented By: Admin: 08/03/22 09:47 Dose: 2 mg Documented By: Admin: 08/02/22 22:46 Dose: 2 mg Documented By: KentonT Morphine Sulfate (Morphine Er 15 Mg Tablet) 15 mg PO Q8HR REPLACED BY [facility] Last Admin: 08/05/22 15:04 Dose: 15 mg Documented By: Admin: 08/05/22 05:31 Dose: 15 mg Documented By: Admin: 08/04/22 20:56 Dose: 15 mg Documented By: Admin: 08/04/22 15:22 Dose: 15 mg Documented By: Admin: 08/04/22 05:21 Dose: 15 mg Documented By: Admin: 08/03/22 21:07 Dose: 15 mg Documented By: Admin: 08/03/22 14:21 Dose: Not Given Documented By: Admin: 08/03/22 14:04 Dose: 15 mg Documented By: MADDI Morphine Sulfate (Morphine Ir 15 Mg Tablet) 15 mg PO Q4H PRN PRN Reason: Pain, Moderate (4-6) Last Admin: 08/05/22 09:08 Dose: 15 mg Documented By: MARISOL Naloxone HCl (Naloxone 0.4 Mg/Ml Vial) 0.1 mg IV Q2MIN PRN PRN Reason: Opiate Reversal Ondansetron HCl (Ondansetron 4 Mg/2 Ml Inj) 4 mg IV Q6HR PRN PRN Reason: Nausea And Vomiting Potassium Chloride (Potassium Chloride 20 Meq Tab) 40 meq PO NOW ONE Stop: 08/03/22 08:17 Last Admin: 08/03/22 10:00 Dose: 40 meq Documented By: ALIREZA Potassium Chloride (Potassium Chloride 20 Meq Tab) 40 meq PO NOW ONE Stop: 08/04/22 09:46 Last Admin: 08/04/22 12:34 Dose: 40 meq Documented By: ROWDY Pregabalin (Pregabalin 50 Mg Capsule) 100 mg PO TID REPLACED BY [facility] Last Admin: 08/05/22 15:05 Dose: 100 mg Documented By: Admin: 08/05/22 08:53 Dose: 100 mg Documented By: Admin: 08/04/22 20:44 Dose: 100 mg Documented By: Admin: 08/04/22 15:22 Dose: 100 mg Documented By: Admin: 08/04/22 08:07 Dose: 100 mg Documented By: Admin: 08/03/22 21:07 Dose: 100 mg Documented By: Admin: 08/03/22 15:02 Dose: 100 mg Documented By: Admin: 08/03/22 09:47 Dose: 100 mg Documented By: Admin: 08/02/22 22:35 Dose: 100 mg Documented By: LIZZY Ropinirole HCl (Ropinirole 0.25 Mg Tablet) 0.5 mg PO BEDTIME REPLACED BY [facility] Last Admin: 08/04/22 20:45 Dose: Not Given Documented By: Admin: 08/03/22 21:07 Dose: 0.5 mg Documented By: Admin: 08/02/22 22:35 Dose: 0.5 mg Documented By: LIZZY Ropinirole HCl (Ropinirole 0.25 Mg Tablet) 0.5 mg PO BEDTIME REPLACED BY [facility] Last Admin: 08/02/22 22:35 Dose: Not Given Documented By: LIZZY Vancomycin HCl (Vancomycin Per Pharmacy) 1 request [facility] [place] [facility] Stop: 08/02/22 19:49 Last Admin: 08/02/22 22:47 Dose: Not Given Documented By: LIZZY Vancomycin HCl (Vancomycin Trough) 1 request [facility] [place] 0730 REPLACED BY [facility] Stop: 08/07/22 07:31 Vancomycin HCl (Vancomycin Peak) 1 request [facility] [place] 1100 REPLACED BY [facility] Stop: 08/07/22 11:01 Vital Signs Vital signs: Vital Signs - 8 hr 08/02/22 15:27 Temperature 98 F Pulse Rate 62 Respiratory Rate 18 Blood Pressure 133/63 Pulse Oximetry 96 Oxygen Delivery Method Room Air MDM - Extremity Injury (Lower) <Raymond Cates PA-C - Last Filed: 08/08/22 12:10> Lab Data Result diagrams: 08/05/22 05:37 08/05/22 05:37 Labs: Lab Results 08/02/22 08/02/22 08/02/22 Range/Units 16:51 16:51 16:51 WBC 8.7 (4.5-11.0) X10^3/uL RBC 4.28 (4.0-5.2) X10^6/uL Hgb 12.6 (12.0-16.0) g/dL Hct 36.7 (36-46) % MCV 85.9 (80-100) fL MCH 29.5 (26-34) PG MCHC 34.4 (30-36) % RDW 14.5 (11.6-14.8) % Plt Count 171 (150-400) X10^3/uL Neut % (Auto) 76.1 H (50-75) % Lymph % (Auto) 16.0 L (25-40) % Stearns % (Auto) 5.7 (3-14) % Eos % (Auto) 1.7 L (2-4) % Baso % (Auto) 0.5 (0-2) % Neut # (Auto) 6600 (4509-7838) /uL Lymph # (Auto) 1400 (0689-6892) /uL Stearns # (Auto) 500 (0-900) /uL Eos # (Auto) 100 (0-450) /uL Baso # (Auto) 0 (0-100) /uL ESR 34 H (0-20) MM/HR Sodium 137 (137-145) mmol/L Potassium 3.5 (3.4-5.1) mmol/L Chloride 97 L (98-107) mmol/L Carbon Dioxide 32 (22-32) mmol/L BUN 12 (7-17) mg/dL Creatinine 0.83 (0.52-1.04) mg/dL Estimated GFR > 60 (>60) mL/min BUN/Creatinine Ratio 14.5 (6-22) Glucose 103 (80-110) mg/dL Hemoglobin A1c (4.0-6.0) % Lactate 1.0 (0.7-2.1) mmol/L Calcium 9.0 (8.4-10.2) mg/dL Total Bilirubin 0.8 (0.2-1.3) mg/dL AST 20 (14-36) IU/L ALT 9 (<35) IU/L Alkaline Phosphatase 72 (38-126) U/L C-Reactive Protein 1.8 H (<1.0) mg/dL Total Protein 8.0 (6.3-8.2) g/dL Albumin 4.3 (3.5-5.0) g/dL Globulin 3.7 (1.7-4.1) g/dL Albumin/Globulin Ratio 1.2 (1.0-2.8) Procalcitonin (<0.5) ng/mL Urine Color Urine Appearance Urine pH (4.5-8.0) Ur Specific [place] (1.000-1.035) Urine Protein (Negative) Urine Glucose (UA) (Negative) g/dL Urine Ketones (NEGATIVE) Urine Occult Blood (Negative) Urine Nitrate (Negative) Urine Bilirubin (NEGATIVE) Urine Urobilinogen (0.2) E.U./dL Ur Leukocyte Esterase (NEGATIVE) Urine RBC (0-5/HPF) Urine WBC (0-5/HPF) Ur Squamous Epith Cells (0-5/HPF) Urine Bacteria (None) Ur Culture Indicated? SARS-CoV-2 (PCR) (Negative) 08/02/22 08/02/22 08/02/22 Range/Units 16:51 16:51 16:56 WBC (4.5-11.0) X10^3/uL RBC (4.0-5.2) X10^6/uL Hgb (12.0-16.0) g/dL Hct (36-46) % MCV (80-100) fL MCH (26-34) PG MCHC (30-36) % RDW (11.6-14.8) % Plt Count (150-400) X10^3/uL Neut % (Auto) (50-75) % Lymph % (Auto) (25-40) % Stearns % (Auto) (3-14) % Eos % (Auto) (2-4) % Baso % (Auto) (0-2) % Neut # (Auto) (3051-1621) /uL Lymph # (Auto) (0441-1218) /uL Stearns # (Auto) (0-900) /uL Eos # (Auto) (0-450) /uL Baso # (Auto) (0-100) /uL ESR (0-20) MM/HR Sodium (137-145) mmol/L Potassium (3.4-5.1) mmol/L Chloride (98-107) mmol/L Carbon Dioxide (22-32) mmol/L BUN (7-17) mg/dL Creatinine (0.52-1.04) mg/dL Estimated GFR (>60) mL/min BUN/Creatinine Ratio (6-22) Glucose (80-110) mg/dL Hemoglobin A1c 5.2 (4.0-6.0) % Lactate (0.7-2.1) mmol/L Calcium (8.4-10.2) mg/dL Total Bilirubin (0.2-1.3) mg/dL AST (14-36) IU/L ALT (<35) IU/L Alkaline Phosphatase (38-126) U/L C-Reactive Protein (<1.0) mg/dL Total Protein (6.3-8.2) g/dL Albumin (3.5-5.0) g/dL Globulin (1.7-4.1) g/dL Albumin/Globulin Ratio (1.0-2.8) Procalcitonin 0.07 (<0.5) ng/mL Urine Color Yellow Urine Appearance Clear Urine pH 7.0 (4.5-8.0) Ur Specific [place] <=1.005 (1.000-1.035) Urine Protein Negative (Negative) Urine Glucose (UA) Negative (Negative) g/dL Urine Ketones Negative (NEGATIVE) Urine Occult Blood Negative (Negative) Urine Nitrate Negative (Negative) Urine Bilirubin Negative (NEGATIVE) Urine Urobilinogen 0.2 (0.2) E.U./dL Ur Leukocyte Esterase Negative (NEGATIVE) Urine RBC 0-1/hpf (0-5/HPF) Urine WBC 0-1/hpf (0-5/HPF) Ur Squamous Epith Cells 0-1 /hpf (0-5/HPF) Urine Bacteria None seen (None) Ur Culture Indicated? Cult not indicated SARS-CoV-2 (PCR) (Negative) 08/02/22 Range/Units 19:27 WBC (4.5-11.0) X10^3/uL RBC (4.0-5.2) X10^6/uL Hgb (12.0-16.0) g/dL Hct (36-46) % MCV (80-100) fL MCH (26-34) PG MCHC (30-36) % RDW (11.6-14.8) % Plt Count (150-400) X10^3/uL Neut % (Auto) (50-75) % Lymph % (Auto) (25-40) % Stearns % (Auto) (3-14) % Eos % (Auto) (2-4) % Baso % (Auto) (0-2) % Neut # (Auto) (8488-5421) /uL Lymph # (Auto) (0834-6267) /uL Stearns # (Auto) (0-900) /uL Eos # (Auto) (0-450) /uL Baso # (Auto) (0-100) /uL ESR (0-20) MM/HR Sodium (137-145) mmol/L Potassium (3.4-5.1) mmol/L Chloride (98-107) mmol/L Carbon Dioxide (22-32) mmol/L BUN (7-17) mg/dL Creatinine (0.52-1.04) mg/dL Estimated GFR (>60) mL/min BUN/Creatinine Ratio (6-22) Glucose (80-110) mg/dL Hemoglobin A1c (4.0-6.0) % Lactate (0.7-2.1) mmol/L Calcium (8.4-10.2) mg/dL Total Bilirubin (0.2-1.3) mg/dL AST (14-36) IU/L ALT (<35) IU/L Alkaline Phosphatase (38-126) U/L C-Reactive Protein (<1.0) mg/dL Total Protein (6.3-8.2) g/dL Albumin (3.5-5.0) g/dL Globulin (1.7-4.1) g/dL Albumin/Globulin Ratio (1.0-2.8) Procalcitonin (<0.5) ng/mL Urine Color Urine Appearance Urine pH (4.5-8.0) Ur Specific [place] (1.000-1.035) Urine Protein (Negative) Urine Glucose (UA) (Negative) g/dL Urine Ketones (NEGATIVE) Urine Occult Blood (Negative) Urine Nitrate (Negative) Urine Bilirubin (NEGATIVE) Urine Urobilinogen (0.2) E.U./dL Ur Leukocyte Esterase (NEGATIVE) Urine RBC (0-5/HPF) Urine WBC (0-5/HPF) Ur Squamous Epith Cells (0-5/HPF) Urine Bacteria (None) Ur Culture Indicated? SARS-CoV-2 (PCR) Negative (Negative) Imaging Data Extremity x-ray #1: Radiologist's Impression: [address] [address] XRay Report Signed Patient: Arely Chauhan MR#: [id number] : 1955 Acct:[id number] Age/Sex: 66 / F Date of Service: 08/02/22 Loc: ED Accession Number: [id number] ?? Procedure: XR foot RT min 3V Ordering Provider: Roma Sandhu D.O. PROCEDURE:? XR FOOT RT MIN 3V ? INDICATIONS:? toes infected, cellulitis right foot. ? TECHNIQUE:? 3 views of the foot were acquired.? ? COMPARISON:? [facility], CR, XR FOOT LT MIN 3V, 08/02/2022, 16:43. ? FINDINGS:? ? Bones:? There is potential minimal erosions seen involving the distal aspect of the distal phalanx of the great toe. ? Generalized bony degenerative changes are seen. A plantar calcaneal spur is seen.? ? Soft tissues:? Relatively prominent distal soft tissue swelling is seen. ? ? IMPRESSION:? Potential great toe erosion. ? Relatively prominent distal soft tissue swelling is seen. ? If there is strong suspicion for developing osteomyelitis, please consider a dedicated MRI without and with contrast for further evaluation (assuming that there is no contraindication to MRI).? ? ? Dictated by: Jaxon Perdue M.D. on 08/02/2022 at 16:36 ? ? Approved by: Jaxon Perdue M.D. on 08/02/2022 at 16:36 ? MDM Narrative Medical decision making narrative: Patient presents to the emergency room with complaint a growth plate toe pain and swelling that worsened last night. X-rays revealed strong suspicion for osteomyelitis and suggests MRI for further evaluation. Physical exam also was consistent with a strong suspicion for osteomyelitis. Discussed with hospitalist who agrees to admit patient with plans to have the MRI done tomorrow. Hospitalist Dr. Miguel also suggest changing the patient's IV antibiotics to vancomycin and Zosyn. He also suggests patient NPO after midnight. <Carlos Healy, DO - Last Filed: 08/08/22 21:33> Lab Data Labs: Lab Results 08/02/22 08/02/22 08/02/22 Range/Units 16:51 16:51 16:51 WBC 8.7 (4.5-11.0) X10^3/uL RBC 4.28 (4.0-5.2) X10^6/uL Hgb 12.6 (12.0-16.0) g/dL Hct 36.7 (36-46) % MCV 85.9 (80-100) fL MCH 29.5 (26-34) PG MCHC 34.4 (30-36) % RDW 14.5 (11.6-14.8) % Plt Count 171 (150-400) X10^3/uL Neut % (Auto) 76.1 H (50-75) % Lymph % (Auto) 16.0 L (25-40) % Stearns % (Auto) 5.7 (3-14) % Eos % (Auto) 1.7 L (2-4) % Baso % (Auto) 0.5 (0-2) % Neut # (Auto) 6600 (2444-6088) /uL Lymph # (Auto) 1400 (5952-5518) /uL Stearns # (Auto) 500 (0-900) /uL Eos # (Auto) 100 (0-450) /uL Baso # (Auto) 0 (0-100) /uL ESR 34 H (0-20) MM/HR Sodium 137 (137-145) mmol/L Potassium 3.5 (3.4-5.1) mmol/L Chloride 97 L (98-107) mmol/L Carbon Dioxide 32 (22-32) mmol/L BUN 12 (7-17) mg/dL Creatinine 0.83 (0.52-1.04) mg/dL Estimated GFR > 60 (>60) mL/min BUN/Creatinine Ratio 14.5 (6-22) Glucose 103 (80-110) mg/dL Hemoglobin A1c (4.0-6.0) % Lactate 1.0 (0.7-2.1) mmol/L Calcium 9.0 (8.4-10.2) mg/dL Total Bilirubin 0.8 (0.2-1.3) mg/dL AST 20 (14-36) IU/L ALT 9 (<35) IU/L Alkaline Phosphatase 72 (38-126) U/L C-Reactive Protein 1.8 H (<1.0) mg/dL Total Protein 8.0 (6.3-8.2) g/dL Albumin 4.3 (3.5-5.0) g/dL Globulin 3.7 (1.7-4.1) g/dL Albumin/Globulin Ratio 1.2 (1.0-2.8) Procalcitonin (<0.5) ng/mL Urine Color Urine Appearance Urine pH (4.5-8.0) Ur Specific [place] (1.000-1.035) Urine Protein (Negative) Urine Glucose (UA) (Negative) g/dL Urine Ketones (NEGATIVE) Urine Occult Blood (Negative) Urine Nitrate (Negative) Urine Bilirubin (NEGATIVE) Urine Urobilinogen (0.2) E.U./dL Ur Leukocyte Esterase (NEGATIVE) Urine RBC (0-5/HPF) Urine WBC (0-5/HPF) Ur Squamous Epith Cells (0-5/HPF) Urine Bacteria (None) Ur Culture Indicated? SARS-CoV-2 (PCR) (Negative) 08/02/22 08/02/22 08/02/22 Range/Units 16:51 16:51 16:56 WBC (4.5-11.0) X10^3/uL RBC (4.0-5.2) X10^6/uL Hgb (12.0-16.0) g/dL Hct (36-46) % MCV (80-100) fL MCH (26-34) PG MCHC (30-36) % RDW (11.6-14.8) % Plt Count (150-400) X10^3/uL Neut % (Auto) (50-75) % Lymph % (Auto) (25-40) % [place] % (Auto) (3-14) % Eos % (Auto) (2-4) % Baso % (Auto) (0-2) % Neut # (Auto) (2794-7312) /uL Lymph # (Auto) (9783-7861) /uL [place] # (Auto) (0-900) /uL Eos # (Auto) (0-450) /uL Baso # (Auto) (0-100) /uL ESR (0-20) MM/HR Sodium (137-145) mmol/L Potassium (3.4-5.1) mmol/L Chloride (98-107) mmol/L Carbon Dioxide (22-32) mmol/L BUN (7-17) mg/dL Creatinine (0.52-1.04) mg/dL Estimated GFR (>60) mL/min BUN/Creatinine Ratio (6-22) Glucose (80-110) mg/dL Hemoglobin A1c 5.2 (4.0-6.0) % Lactate (0.7-2.1) mmol/L Calcium (8.4-10.2) mg/dL Total Bilirubin (0.2-1.3) mg/dL AST (14-36) IU/L ALT (<35) IU/L Alkaline Phosphatase (38-126) U/L C-Reactive Protein (<1.0) mg/dL Total Protein (6.3-8.2) g/dL Albumin (3.5-5.0) g/dL Globulin (1.7-4.1) g/dL Albumin/Globulin Ratio (1.0-2.8) Procalcitonin 0.07 (<0.5) ng/mL Urine Color Yellow Urine Appearance Clear Urine pH 7.0 (4.5-8.0) Ur Specific [place] <=1.005 (1.000-1.035) Urine Protein Negative (Negative) Urine Glucose (UA) Negative (Negative) g/dL Urine Ketones Negative (NEGATIVE) Urine Occult Blood Negative (Negative) Urine Nitrate Negative (Negative) Urine Bilirubin Negative (NEGATIVE) Urine Urobilinogen 0.2 (0.2) E.U./dL Ur Leukocyte Esterase Negative (NEGATIVE) Urine RBC 0-1/hpf (0-5/HPF) Urine WBC 0-1/hpf (0-5/HPF) Ur Squamous Epith Cells 0-1 /hpf (0-5/HPF) Urine Bacteria None seen (None) Ur Culture Indicated? Cult not indicated SARS-CoV-2 (PCR) (Negative) 08/02/22 Range/Units 19:27 WBC (4.5-11.0) X10^3/uL RBC (4.0-5.2) X10^6/uL Hgb (12.0-16.0) g/dL Hct (36-46) % MCV (80-100) fL MCH (26-34) PG MCHC (30-36) % RDW (11.6-14.8) % Plt Count (150-400) X10^3/uL Neut % (Auto) (50-75) % Lymph % (Auto) (25-40) % [place] % (Auto) (3-14) % Eos % (Auto) (2-4) % Baso % (Auto) (0-2) % Neut # (Auto) (1194-1871) /uL Lymph # (Auto) (6954-9066) /uL [place] # (Auto) (0-900) /uL Eos # (Auto) (0-450) /uL Baso # (Auto) (0-100) /uL ESR (0-20) MM/HR Sodium (137-145) mmol/L Potassium (3.4-5.1) mmol/L Chloride (98-107) mmol/L Carbon Dioxide (22-32) mmol/L BUN (7-17) mg/dL Creatinine (0.52-1.04) mg/dL Estimated GFR (>60) mL/min BUN/Creatinine Ratio (6-22) Glucose (80-110) mg/dL Hemoglobin A1c (4.0-6.0) % Lactate (0.7-2.1) mmol/L Calcium (8.4-10.2) mg/dL Total Bilirubin (0.2-1.3) mg/dL AST (14-36) IU/L ALT (<35) IU/L Alkaline Phosphatase (38-126) U/L C-Reactive Protein (<1.0) mg/dL Total Protein (6.3-8.2) g/dL Albumin (3.5-5.0) g/dL Globulin (1.7-4.1) g/dL Albumin/Globulin Ratio (1.0-2.8) Procalcitonin (<0.5) ng/mL Urine Color Urine Appearance Urine pH (4.5-8.0) Ur Specific [place] (1.000-1.035) Urine Protein (Negative) Urine Glucose (UA) (Negative) g/dL Urine Ketones (NEGATIVE) Urine Occult Blood (Negative) Urine Nitrate (Negative) Urine Bilirubin (NEGATIVE) Urine Urobilinogen (0.2) E.U./dL Ur Leukocyte Esterase (NEGATIVE) Urine RBC (0-5/HPF) Urine WBC (0-5/HPF) Ur Squamous Epith Cells (0-5/HPF) Urine Bacteria (None) Ur Culture Indicated? SARS-CoV-2 (PCR) Negative (Negative) Discharge Plan Departure Patient Disposition: Admitted As Inpatient Clinical Impression: Osteomyelitis Admit Date/Time: 08/02/22 19:28 Admit Provider: Callum Garcia <Carlos Healy DO - Last Filed: 08/08/22 21:33> Cosign ED Attending Cosignature Attestation: Dr Healy Co-Sign Statement: I was available for consultation during this patient's emergency department visit. This chart is signed by myself for administrative purposes only. I did not have direct contact with this patient during this visit. They were seen independently by the APC.
--- NOTE | 2022-08-02 19:03 | DI.MRI.S_ITS ---
PROCEDURE: MR FOOT RT WO/W CON INDICATIONS: Please evaluate Cellulitis of Right Great toe TECHNIQUE: Noncontrast sagittal T1 spin echo and T2 fast spin echo with fat saturation, long-axis T1 spin echo and T2 fast spin echo with fat saturation; short-axis T1 spin echo, proton density fast spin echo, and T2 fast spin echo with fat saturation through the forefoot. Post-contrast short axis, long axis, and sagittal T1 spin echo with fat saturation through the forefoot. COMPARISON: [facility], CR, XR FOOT RT MIN 3V, 08/02/2022, 16:43. FINDINGS: Image quality: Excellent. In this patient with this given history, scrutiny is given to the great toe. There is abnormally increased T2 weighted signal seen involving the distal phalanx of the great toe, with associated mild decreased T1 weighted signal. There is abnormally increased enhancement within the distal phalanx of the great toe. No definite additional areas of signal abnormality can be seen elsewhere within the bones of the foot. There is an apparent erosion seen involving the distal most aspect of the great toe. Generalized soft tissue swelling can be seen of the great toe, with soft tissue edema and mild generalized enhancement. No focal fluid collections are seen to suggest soft tissue abscess. IMPRESSION: Osteomyelitis until proven otherwise involving the distal phalanx of the great toe. Soft tissue abnormalities are seen, yet without a focal drainable abscess. Dictated by: Jaxon Perdue M.D. on 08/03/2022 at 12:08 Approved by: Jaxon Perdue M.D. on 08/03/2022 at 12:11
[2022-08-02] MEDS: PIPERACILLIN/TAZO 4.5 GM in SODIUM CHLORIDE 0.9% 100 ML IV (19:25)
--- NOTE | 2022-08-02 19:32 | PC.NURSE ---
Pt arrives POV with c/o sore R-big toe. After removing bandages from both the Left and right big toes, foul odor smelled and both big toes were weeping and purulent. Physician advised, xrays of both feet, blood cultures, rainbow blood draw, gram stain cultures x 2 and antibiotics ordered on pt alejandro. Pt in room 13 for 2+ hrs, monitor does not transfer to EMR. Pt moved to rm 12 for improved monitor and VS monitoring.
[2022-08-02 20:03] LABS: COVID19 -Nasal RAPID Negative (Negative)
--- NOTE | 2022-08-02 20:09 | P.HP_ITS ---
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 States the pain and swelling start ed 2 days ago.? States she initially jammed the toe about 4 weeks ago and that it has failed to heal.?She noticed pussy draining from the toe yesterday. Endorses nausea but denies vomiting, shortness of breath, chest pain, fevers, chills, bodyaches, cough, upper respiratory symptoms, urinary symptoms no urgency frequency dysuria, no bowel issues, no blood in urine or stool, no hematemesis, no recent illness injury or trauma (then otherwisw stated above). Patient denies history of MRSA, or previous cellulitis. Patient verbalizes that her A1c has been consistently in the low 5's, and that her primary recently increased her metformin from 500 once daily to 500 twice daily. She has never experienced any complications in regards to diabetes but notes that she does have neuropathy. Patient's vitals upon admit are stable temp 98?, BP 133/63, HR 62, RR 18, O2 saturation 96% on room air. Patient's CBC chemistry panel, liver panel, UA, and lactate?are all WNL. ESR 34, CRP 1.8, blood cultures pending. Right foot x-ray demonstrated Great Toe:potential minimal erosions seen involving the distal aspect of the distal phalanx of the great toe, with relatively prominent distal soft tissue swelling is seen, a strong suspicion for developing osteomyelitis. Blood cultures x2, and wound cultures pending. Ortho consulted in ED. patient admitted for right foot great toe osteomyelitis secondary to non insulin- dependent type 2 diabetes. Patient History Medical History (Updated 08/02/22 @ 22:41 by Vilma Veras, [employer]IC TE[employer]ER-) Adiposa dolorosa Dinh's palsy Chronic migraine Chronic pain Depression Depression with anxiety Dercum disease Diabetes GERD (gastroesophageal reflux disease) Headache Hypertension Neuropathy Opiate dependence, continuous Restless leg syndrome Surgical History (Updated 08/02/22 @ 22:04 by MIGUELITO Driver-TALIA) History of cholecystectomy History of hysterectomy Family & Social History Family History Mother Hypertension Renal failure Father Renal failure Congestive heart failure Safety & Behavioral: Feels Safe in Current Yes, lives with her spouse and CT, retired nurse, permanently disabled. Environment Been Physically Hurt or No Threatened By a Person Tobacco & Substance use: Smoking Status Former smoker-quit 1995 alcohol intake never alcohol intake frequency 0 Substance Use Type THC occansionally Meds Home Medications and Allergies Home Medications Medication Instructions Recorded Confirmed Type ondansetron 4 mg disintegrating 4 mg PO BID-TID PRN nausea and 12/25/18 12/29/18 Rx tablet vomiting #10 tabs Ocuvite 1 tab PO DAILY 12/29/18 12/29/18 History albuterol sulfate 90 mcg/actuation 2 puff inhalation Q4H PRN 12/29/18 12/29/18 History aerosol inhaler Shortness Of Breath brinzolamide 1 %-brimonidine 0.2 % 1 drp ophthalmic (eye) BID 12/29/18 12/29/18 History eye drops,suspension (Simbrinza) citalopram 40 mg tablet 40 mg PO DAILY 12/29/18 12/29/18 History clonidine HCl 0.3 mg tablet 0.3 mg PO BID 12/29/18 12/29/18 History diazepam 5 mg tablet 5 mg PO BID PRN Anxiety 12/29/18 12/29/18 History latanoprost 0.005 % eye drops 1 drp ophthalmic (eye) DAILY 12/29/18 12/29/18 History losartan 100 1 tab PO DAILY 12/29/18 12/29/18 History mg-hydrochlorothiazide 25 mg tablet magnesium 200 mg tablet 200 mg PO DAILY 12/29/18 12/29/18 History meclizine 25 mg tablet 25 mg PO DAILY PRN Vertigo 12/29/18 12/29/18 History metformin 500 mg tablet 500 mg PO DAILY 12/29/18 12/29/18 History metoclopramide HCl 10 mg tablet 10 mg PO DAILY PRN Nausea 12/29/18 12/29/18 History morphine 15 mg immediate release 15 mg PO Q8H PRN pain 12/29/18 12/29/18 History tablet omeprazole 20 mg capsule,delayed 20 mg PO Q12H 12/29/18 12/29/18 History release ropinirole 0.5 mg tablet 0.5 mg PO BEDTIME 12/29/18 12/29/18 History triamcinolone acetonide 0.05 % 1 applic topical BID 12/29/18 12/29/18 History topical ointment prednisone 10 mg tablet See Rx Instructions .Route 03/27/21 Rx .COMPLEX #30 tabs Allergies Allergy/AdvReac Type Severity Reaction Status Date / Time Beta-Blockers Allergy Unknown Verified 03/06/21 17:25 (Beta-Adrenergic Bloc Corticosteroids Allergy Unknown Verified 03/06/21 17:25 (Glucocorticoids) neomycin Allergy Unknown Verified 03/06/21 17:25 NSAIDS (Non-Steroidal Allergy Verified 08/02/22 15:27 Anti-Inflamma zolpidem AdvReac Intermediate CONFUSION/A Verified 03/06/21 17:25 MNESIA Review of Systems Review of Systems Narrative: All 12 point systems reviewed with the patient and are negative except otherwise documented. Exam Vital Signs (past 8 hours): - 08/02/22 15:27 08/02/22 19:24 08/02/22 19:31 Temperature 98 F Pulse Rate 62 59 L 59 L Respiratory Rate 18 18 18 Blood Pressure 133/63 154/70 H 153/65 H Pulse Oximetry 96 99 98 Oxygen Delivery Method Room Air Room Air Room Air 08/02/22 19:33 08/02/22 19:35 08/02/22 19:35 Temperature Pulse Rate 56 L 57 L Respiratory Rate Blood Pressure 137/63 Pulse Oximetry 98 98 Oxygen Delivery Method 08/02/22 19:40 08/02/22 19:50 08/02/22 20:00 Temperature Pulse Rate 61 61 Respiratory Rate Blood Pressure 142/65 H Pulse Oximetry 98 98 Oxygen Delivery Method 08/02/22 20:00 Temperature Pulse Rate 60 Respiratory Rate Blood Pressure Pulse Oximetry 99 Oxygen Delivery Method Oxygen Delivery Method Room Air Narrative Exam Narrative: General: Patient is a well-developed, well-nourished in no distress at this time. HEENT: Normocephalic, atraumatic, extraocular muscles intact, oral pharynx is clear and mucous membranes are moist. Neck is supple and symmetric, trachea is midline, no adenopathy, no thyroid enlargement, nontender, no masses palpated. Negative for JVD Chest: Normal AP diameter and contour without kyphoscoliosis, no nasal flaring, retractions, or tachypneic labored Lungs: Auscultation of all lung canas are clear without adventitious sounds, wheezes, rhonchi, or rales. Cardio: S1 & S2 with regular rate and rhythm without murmur, rubs, or gallops, no carotid bruit, no cardiac pulsations present. Abdomen: Soft nontender, negative for organomegaly, or masses. Bowel sounds are present in all 4 quadrants without guarding or rebound, no CVA tenderness. Musculoskeletal: Muscle strength and tone are equal within normal limits, no deformity, crepitus, effusions, cyanosis, clubbing or edema present. Full range of motion intact radial and pedal pulses are normal. Right Foot: swelling erythema and tenderness to touch to the right great toe on the dorsal and lateral areas-inflammation edema and mild erythema extend evenly up the right calf, greaterthan left, decreased sensation to touch on the volar surface of the right great toe, positive discharge of purulent secretions, foul odor, eschar observered over tip, without abscess or fluctuance.? Left Foot: Great toe, mild erythema, inflammation to tip, wound partial healing, scabing present, no drainage, tender to palpation, Skin: Warm dry and intact without rashes, ulcerations or petechiae. Neuro: Alert and orientated x3, strength is +5/5 in all extremities, sensation to touch intact, no gross deficits noted of cranial nerves. Psych: Patient has a well-kept appearance, appropriate affect, mental status attitude thought context and judgment are appropriate for age. Objective Labs Result Diagrams: 08/02/22 16:51 08/02/22 16:51 Labs: Laboratory Results - last 24 hr 08/02/22 08/02/22 08/02/22 16:51 16:51 16:51 WBC 8.7 RBC 4.28 Hgb 12.6 Hct 36.7 MCV 85.9 MCH 29.5 MCHC 34.4 RDW 14.5 Plt Count 171 Neut % (Auto) 76.1 H Lymph % (Auto) 16.0 L [place] % (Auto) 5.7 Eos % (Auto) 1.7 L Baso % (Auto) 0.5 Neut # (Auto) 6600 Lymph # (Auto) 1400 [place] # (Auto) 500 Eos # (Auto) 100 Baso # (Auto) 0 ESR 34 H Sodium 137 Potassium 3.5 Chloride 97 L Carbon Dioxide 32 BUN 12 Creatinine 0.83 Estimated GFR > 60 BUN/Creatinine Ratio 14.5 Glucose 103 Lactate 1.0 Calcium 9.0 Total Bilirubin 0.8 AST 20 ALT 9 Alkaline Phosphatase 72 C-Reactive Protein 1.8 H Total Protein 8.0 Albumin 4.3 Globulin 3.7 Albumin/Globulin Ratio 1.2 Urine Color Urine Appearance Urine pH Ur Specific [place] Urine Protein Urine Glucose (UA) Urine Ketones Urine Occult Blood Urine Nitrate Urine Bilirubin Urine Urobilinogen Ur Leukocyte Esterase Urine RBC Urine WBC Ur Squamous Epith Cells Urine Bacteria Ur Culture Indicated? SARS-CoV-2 (PCR) 08/02/22 08/02/22 16:56 19:27 WBC RBC Hgb Hct MCV MCH MCHC RDW Plt Count Neut % (Auto) Lymph % (Auto) [place] % (Auto) Eos % (Auto) Baso % (Auto) Neut # (Auto) Lymph # (Auto) [place] # (Auto) Eos # (Auto) Baso # (Auto) ESR Sodium Potassium Chloride Carbon Dioxide BUN Creatinine Estimated GFR BUN/Creatinine Ratio Glucose Lactate Calcium Total Bilirubin AST ALT Alkaline Phosphatase C-Reactive Protein Total Protein Albumin Globulin Albumin/Globulin Ratio Urine Color Yellow Urine Appearance Clear Urine pH 7.0 Ur Specific [place] <=1.005 Urine Protein Negative Urine Glucose (UA) Negative Urine Ketones Negative Urine Occult Blood Negative Urine Nitrate Negative Urine Bilirubin Negative Urine Urobilinogen 0.2 Ur Leukocyte Esterase Negative Urine RBC 0-1/hpf Urine WBC 0-1/hpf Ur Squamous Epith Cells 0-1 /hpf Urine Bacteria None seen Ur Culture Indicated? Cult not indicated SARS-CoV-2 (PCR) Negative Assessment & Plan Assessment & Plan narrative: Arely Chauhan is a 66-year-old female with a history of Dercum Dz, adiposis Dolorosa, non insulin-dependent type 2 diabetes, hypertension, depression with anxiety, GERD, chronic migraines, and chronic pain who presented to the ED with a chief complaint of pain swelling redness and a foul odor to right great toe, who is admitted for osteomyelitis right foot great toe requiring surgical consult. 1. Osteomyelitis, right foot great toe, acute, secondary to n [id number] type 2 diabetes, Neuropathy, Diabetic foot ulceration (rt& Lt great toe), chronic, present on admission -suspect that this is acute hematogenous osteomyelitis, I am not convinced this is secondary to diabetes as the patient does not appear to have uncontrolled diabetes at this time. -patient did not meet SIRS criteria in ED, sofa score: 0 -A1C 5.2% today, admit with this infection BS: 103- I question her diagnosis of DM-will monitor while inpt., recommend re-evaluation f/u with PCP. I recommend stopping metformin. -01/2018: A1c 6.7%, 06/2018: A1c 6.3% Current A1C Goals for this patient <7.5%, Fasting or preprandial BS 90-130, bedtime BS 90-150. -Dr. Patiño orthopedics to consult -differential :cellulitis, septic arthritis, gout, diabetic or arterial insufficiency, TB or mycotic bone infection, rheumatic fever, metastatic cancer, multiple myeloma, Ewings sarcoma, avascular necrosis, pancreatitis, Charcot's foot, fracture. -blood cultures x2 pending. ESR 34, CRP 1.8 -Right foot x-ray demonstrated Great Toe:potential minimal erosions seen involving the distal aspect of the distal phalanx of the great toe, with relatively prominent distal soft tissue swelling is seen, a strong suspicion for developing osteomyelitis. -ordered MRI for tomorrow Rt Foot. -Will require wound debridement and 6 weeks of IV antibiotics -if found to be positive osteomyelitis -Empiric Antibiotics: Vancomycin for MRSA coverage plus Rocephin Gram-negative coverage, do not suspect Pseudomonas at this time. Stopped Zosyn due to the risk of nephrotoxicity in combination with vancomycin. If blood or Bone cultures are positive for Pseudomonas we will change Rocephin to cefepime. -fluid Hydration LR@60cc/Hr -ice q.6 as needed, elevate extremity frequently to reduce inflammation -patient NPO at midnight with the exception of sips to take medications. Patient may have bedtime snack tonight prior to midnight. -patient admitted under diabetic protocol, monitoring for hypoglycemia, -blood sugar checks q.6 hours while NPO, change to a.c. HS following surgery -holding metformin -low-dose sliding scale for coverage -Please provide diabetic foot care on discharge 2. Chronic pain, with opiate dependence, secondary to Dercum disease, chronic, present on admission -2 mg IV morphine q.4 hours as needed for pain-preoperatively -postoperatively resume patient's home morphine 15 mg b.i.d. -continue Lyrica 2. Hypertension, essential, chronic, present on admission -continue losartan HCTZ 3. Depression with anxiety, chronic, present on admission -continue citalopram 4. Overweight as evidence by BMI of 34.7, acute on chronic, present on admission -patient's weight is likely to contribute to poor wound healing and recovery from medical procedure, as well as direct impact on osteomyelitis of the great toe, this increases the likelihood of complications leading to possible morbidity and mortality. -dietary consult placed for counseling regarding nutritional diet, lifestyle, exercise, and weight loss changes. Code status: Full Surrogate decision maker: Jamal Chauhan Spouse COVID PCR: Negative DVT/VTE prophylaxis: Holding medication due to pending surgical procedure, SCD on left only. Disposition: Patient admitted to acute care due to required surgical interv ention for right foot great toe osteomyelitis, expected length of stay greater than 2 midnights. I have utilized all available immediate resources to obtain, update, or review the patient's current medications. I confirmed that the patient's advanced care plan is present, Code status is documented and/or surrogate decision maker is listed in the patient's medical record. Time Spent With Patient Critical Care time: I spent a total of [] minutes of critical care time on this patient's care today; this time is exclusive of procedural time.
[2022-08-02 20:12] LABS: Hemoglobin A1C% w Est Avg Glu 5.2 % (4.0-6.0)
[2022-08-02] MEDS: ACETAMINOPHEN 325 MG TABLET 650 MG PO (20:13)
[2022-08-02] MEDS: VANCOMYCIN 2,000 MG/400 ML PIGGYBACK 200 MG IV (20:16)
[2022-08-02] MEDS: PREGABALIN 50 MG CAPSULE 100 MG PO (22:35)
[2022-08-02] MEDS: ROPINIROLE 0.25 MG TABLET 0.5 MG PO (22:35)
[2022-08-02] MEDS: LACTATED RINGERS 1,000 ML 60 ML IV (22:38)
[2022-08-02] MEDS: cefTRIAXone 1,000 MG in SODIUM CHLORIDE 0.9% 100 ML 200 MG IV (22:46)
[2022-08-02] MEDS: MORPHINE 2 MG/ML INJ IV (22:46)
[2022-08-02 22:57] LABS: Procalcitonin 0.07 ng/mL (<0.5)
--- NOTE | 2022-08-02 23:28 | PC.NURSE ---
Admit pictures Right toe
[2022-08-03] VITALS (11 sets, daily range): BP systolic 121–178; BP diastolic 49–75; PULSE 54–75; RESP 14–21; TEMP 36–37.2; O2SAT 94–99
--- NOTE | 2022-08-03 03:18 | DI.RAD.S_ITS ---
PROCEDURE: XR CHEST 1V INDICATIONS: for PICC placement TECHNIQUE: One view of the chest was acquired. COMPARISON: [facility], , CHEST 2 VIEW, 03/10/2014, 10:43. [facility], , XR CHEST 1V, 12/29/2018, 17:32. FINDINGS: Surgical changes and devices: A left-sided PICC line is seen, with the tip overlying the inferior aspect of the superior vena cava, wanted to cm above the cavoatrial junction. Lungs and pleura: Lungs are clear. No pleural effusions or pneumothorax. Mediastinum: Mediastinal contours appear normal. Heart size is normal. Atherosclerotic calcification of the aortic arch is noted. Bones and chest wall: No suspicious bony lesions. Age-appropriate bony degenerative changes are seen. Overlying soft tissues appear unremarkable. IMPRESSION: The tip of the left-sided PICC line can be seen overlying the inferior aspect of the superior vena cava. Note: No significant discrepancy from the preliminary report. Dictated by: Jaxon Perdue M.D. on 08/03/2022 at 7:26 Approved by: Jaxon Perdue M.D. on 08/03/2022 at 7:27
--- NOTE | 2022-08-03 04:39 | PC.NURSE ---
Pt. arrived to the unit at 2030 via stretcher. Pt. is able to walk from stretcher to bed. Oriented to room, bed control and call light use. Instructed also to call for assistance if needing to get up to use the bathroom. Pt. is alert and oriented and agreed not to get up without assistance. Wound photos taken and uploaded to pt's chart. Med reconciliation not done since pt. does not have a list of what she takes. ARABELLA Veras states she will take care of it. Bed alarm activated, call light within reach.
[2022-08-03 05:54] LABS: Add Manual Diff / Slide Review NO; Basophils Absolute Auto 0 /uL (0-100); Basophils Percent Auto 0.6 % (0-2); Eosinophils Absolute Auto 100 /uL (0-450); Eosinophils Percent Auto 1.9 % (2-4); Hematocrit 32.7 % (36-46); Hemoglobin 11.2 g/dL (12.0-16.0); Lymphocytes Absolute Auto 1600 /uL (1100-4500); Lymphocytes Percent Auto 24.6 % (25-40); Mean Corpuscular HGB Conc 34.2 % (30-36); Mean Corpuscular Hemoglobin 29.3 PG (26-34); Mean Corpuscular Volume 85.5 fL (80-100); Monocytes Absolute Auto 400 /uL (0-900); Monocytes Percent Auto 5.6 % (3-14); Neutrophils Absolute Auto 4400 /uL (1500-7000); Neutrophils Percent Auto 67.3 % (50-75); Platelet Count 163 X10^3/uL (150-400); Red Blood Cell Count 3.83 X10^6/uL (4.0-5.2); Red Cell Distribution Width 14.4 % (11.6-14.8); White Blood Cell Count 6.5 X10^3/uL (4.5-11.0)
[2022-08-03 06:10] LABS: BUN Creatinine Ratio 16.5 (6-22); Blood Urea Nitrogen 13 mg/dL (7-17); Calcium 8.4 mg/dL (8.4-10.2); Carbon Dioxide 30 mmol/L (22-32); Chloride 101 mmol/L (98-107); Estimated Glomerular Filt Rate > 60 mL/min (>60); Glucose 106 mg/dL (80-110); HEMOLYSIS < 15 (0-50); Magnesium 1.9 mg/dL (1.6-2.3); Potassium 3.4 mmol/L (3.4-5.1); Sodium 139 mmol/L (137-145)
[2022-08-03 06:18] LABS: INR 1.1 (0.9-1.3); Prothrombin Time 12.9 SECONDS (10.1-12.7)
--- NOTE | 2022-08-03 09:39 | P.CONS_ITS ---
History of Present Illness Consult details Date Patient Seen: 08/03/22 Time Patient Seen: 09:39 Chief complaint: right foot injury (Great Toe) swelling Reason for consult: Osteomyelitis ? Requesting provider: Vilma Veras Narrative: Note the request for this Consult was placed in the computer requesting consult on this patient regarding possible great toe osteomyelitis. Please note netsuite consultant was not called. History obtained from chart and from patient. 66-year-old female bilateral great toe pain. Notes drainage from her right great toe and then the area turned black which had her concerned. She does have a diagnosis of diabetes takes metformin. States hemoglobin A1c has been controlled and under 6 generally. She does her own nail care. States the nail fell off on the left side some time ago. No specific injuries. States she had some tissue that she thought she should remove that was white and then after this removed she notes that it formed what appeared to be a blood blister and then turned black. She was seen in the emergency room. Labs were drawn. She has no white count. ESR was 34. CRP was 1.6. Blood cultures were drawn and pending. She was admitted to the hospitalist team. She is scheduled for an MRI today. X-rays of bilateral feet demonstrated soft tissue swelling around the great toe possible erosion at the distal tuft. Possible osteomyelitis Meds Home Medications and Allergies Home Medications Medication Instructions Recorded Confirmed Type ondansetron 4 mg disintegrating 4 mg PO BID-TID PRN nausea and 12/25/18 12/29/18 Rx tablet vomiting #10 tabs Ocuvite 1 tab PO DAILY 12/29/18 12/29/18 History albuterol sulfate 90 mcg/actuation 2 puff inhalation Q4H PRN 12/29/18 12/29/18 History aerosol inhaler Shortness Of Breath brinzolamide 1 %-brimonidine 0.2 % 1 drp ophthalmic (eye) BID 12/29/18 12/29/18 History eye drops,suspension (Simbrinza) citalopram 40 mg tablet 40 mg PO DAILY 12/29/18 12/29/18 History clonidine HCl 0.3 mg tablet 0.3 mg PO BID 12/29/18 12/29/18 History diazepam 5 mg tablet 5 mg PO BID PRN Anxiety 12/29/18 12/29/18 History latanoprost 0.005 % eye drops 1 drp ophthalmic (eye) DAILY 12/29/18 12/29/18 History losartan 100 1 tab PO DAILY 12/29/18 12/29/18 History mg-hydrochlorothiazide 25 mg tablet magnesium 200 mg tablet 200 mg PO DAILY 12/29/18 12/29/18 History meclizine 25 mg tablet 25 mg PO DAILY PRN Vertigo 12/29/18 12/29/18 History metformin 500 mg tablet 500 mg PO DAILY 12/29/18 12/29/18 History metoclopramide HCl 10 mg tablet 10 mg PO DAILY PRN Nausea 12/29/18 12/29/18 History morphine 15 mg immediate release 15 mg PO Q8H PRN pain 12/29/18 12/29/18 History tablet omeprazole 20 mg capsule,delayed 20 mg PO Q12H 12/29/18 12/29/18 History release ropinirole 0.5 mg tablet 0.5 mg PO BEDTIME 12/29/18 12/29/18 History triamcinolone acetonide 0.05 % 1 applic topical BID 12/29/18 12/29/18 History topical ointment prednisone 10 mg tablet See Rx Instructions .Route 03/27/21 Rx .COMPLEX #30 tabs Allergies Allergy/AdvReac Type Severity Reaction Status Date / Time Beta-Blockers Allergy Unknown Verified 03/06/21 17:25 (Beta-Adrenergic Bloc Corticosteroids Allergy Unknown Verified 03/06/21 17:25 (Glucocorticoids) neomycin Allergy Unknown Verified 03/06/21 17:25 NSAIDS (Non-Steroidal Allergy Verified 08/02/22 15:27 Anti-Inflamma zolpidem AdvReac Intermediate CONFUSION/A Verified 03/06/21 17:25 MNESIA Exam Vital Signs (past 8 hours): - 08/03/22 03:59 08/03/22 04:00 08/03/22 07:00 Temperature 97.2 F L 97.2 F L Pulse Rate 54 L 65 Respiratory Rate 18 14 Blood Pressure 121/49 L 150/61 H Pulse Oximetry 97 97 94 Oxygen Delivery Method Room Air Oxygen Flow Rate 0 Oxygen Delivery Method Room Air Oxygen Flow Rate 0 Narrative Exam Narrative: General exam alert oriented female in no acute distress lying in bed Respiratory exam unlabored on room air CV regular rate and rhythm Moving bilateral upper extremities Bilateral lower extremities uncovered. Left foot demonstrates partial absence great toe nail. Mild swelling around the distal great toe more focal area of swelling at the distal medial tuft. No open or draining wounds. Demonstrates dorsiflexion plantar flexion. Palpable dorsalis pedis pulse Right foot also examined. Decreased sensation the level of the toes. Patient states normalizes at the dorsum of the foot. Small black eschar on the medial aspect of the great toe distal tuft and area of the medial nail fold. No drainage. No malodor. No obvious fluctuance. No ascending cellulitis. Objective Imaging Left foot x-ray: My impression: Three views left foot no obvious fractures or dislocations. Suggestion of small erosion around lateral aspect of left great toe distal tuft some soft tissue swelling in this area. Most swelling actually on the medial aspect on clinical examination. Radiologist's impression: IMPRESSION: Potential great toe erosion seen by plain film. If there is strong suspicion for developing osteomyelitis, please consider a dedicated MRI without and with contrast for further evaluation (assuming that there is no contraindication to MRI). Dictated by: Jaxon Perdue M.D. on 08/02/2022 at 16:34 Right foot x-ray: My impression: Three views of the right foot AP oblique and lateral. Suggestion erosion around lateral aspect distal tuft similar to contralateral side, again clinical area of eschar is medial aspect of great toe under an area of thickened nail Radiologist's impression: IMPRESSION: Potential great toe erosion. Relatively prominent distal soft tissue swelling is seen. If there is strong suspicion for developing osteomyelitis, please consider a dedicated MRI without and with contrast for further evaluation (assuming that there is no contraindication to MRI). Dictated by: Jaxon Perdue M.D. on 08/02/2022 at 16:36 Labs Result Diagrams: 08/03/22 05:31 08/03/22 05:31 Labs: Laboratory Results - last 24 hr 08/02/22 08/02/22 08/02/22 16:51 16:51 16:51 WBC 8.7 RBC 4.28 Hgb 12.6 Hct 36.7 MCV 85.9 MCH 29.5 MCHC 34.4 RDW 14.5 Plt Count 171 Neut % (Auto) 76.1 H Lymph % (Auto) 16.0 L [place] % (Auto) 5.7 Eos % (Auto) 1.7 L Baso % (Auto) 0.5 Neut # (Auto) 6600 Lymph # (Auto) 1400 [place] # (Auto) 500 Eos # (Auto) 100 Baso # (Auto) 0 ESR 34 H PT INR Sodium 137 Potassium 3.5 Chloride 97 L Carbon Dioxide 32 BUN 12 Creatinine 0.83 Estimated GFR > 60 BUN/Creatinine Ratio 14.5 Glucose 103 Hemoglobin A1c Lactate 1.0 Calcium 9.0 Magnesium Total Bilirubin 0.8 AST 20 ALT 9 Alkaline Phosphatase 72 C-Reactive Protein 1.8 H Total Protein 8.0 Albumin 4.3 Globulin 3.7 Albumin/Globulin Ratio 1.2 Procalcitonin Urine Color Urine Appearance Urine pH Ur Specific [place] Urine Protein Urine Glucose (UA) Urine Ketones Urine Occult Blood Urine Nitrate Urine Bilirubin Urine Urobilinogen Ur Leukocyte Esterase Urine RBC Urine WBC Ur Squamous Epith Cells Urine Bacteria Ur Culture Indicated? Nasal Screen MRSA (PCR) SARS-CoV-2 (PCR) 08/02/22 08/02/22 08/02/22 16:51 16:51 16:56 WBC RBC Hgb Hct MCV MCH MCHC RDW Plt Count Neut % (Auto) Lymph % (Auto) [place] % (Auto) Eos % (Auto) Baso % (Auto) Neut # (Auto) Lymph # (Auto) [place] # (Auto) Eos # (Auto) Baso # (Auto) ESR PT INR Sodium Potassium Chloride Carbon Dioxide BUN Creatinine Estimated GFR BUN/Creatinine Ratio Glucose Hemoglobin A1c 5.2 Lactate Calcium Magnesium Total Bilirubin AST ALT Alkaline Phosphatase C-Reactive Protein Total Protein Albumin Globulin Albumin/Globulin Ratio Procalcitonin 0.07 Urine Color Yellow Urine Appearance Clear Urine pH 7.0 Ur Specific [place] <=1.005 Urine Protein Negative Urine Glucose (UA) Negative Urine Ketones Negative Urine Occult Blood Negative Urine Nitrate Negative Urine Bilirubin Negative Urine Urobilinogen 0.2 Ur Leukocyte Esterase Negative Urine RBC 0-1/hpf Urine WBC 0-1/hpf Ur Squamous Epith Cells 0-1 /hpf Urine Bacteria None seen Ur Culture Indicated? Cult not indicated Nasal Screen MRSA (PCR) SARS-CoV-2 (PCR) 08/02/22 08/02/22 08/03/22 19:27 21:40 05:31 WBC 6.5 RBC 3.83 L Hgb 11.2 L Hct 32.7 L MCV 85.5 MCH 29.3 MCHC 34.2 RDW 14.4 Plt Count 163 Neut % (Auto) 67.3 Lymph % (Auto) 24.6 L [place] % (Auto) 5.6 Eos % (Auto) 1.9 L Baso % (Auto) 0.6 Neut # (Auto) 4400 Lymph # (Auto) 1600 [place] # (Auto) 400 Eos # (Auto) 100 Baso # (Auto) 0 ESR PT INR Sodium Potassium Chloride Carbon Dioxide BUN Creatinine Estimated GFR BUN/Creatinine Ratio Glucose Hemoglobin A1c Lactate Calcium Magnesium Total Bilirubin AST ALT Alkaline Phosphatase C-Reactive Protein Total Protein Albumin Globulin Albumin/Globulin Ratio Procalcitonin Urine Color Urine Appearance Urine pH Ur Specific [place] Urine Protein Urine Glucose (UA) Urine Ketones Urine Occult Blood Urine Nitrate Urine Bilirubin Urine Urobilinogen Ur Leukocyte Esterase Urine RBC Urine WBC Ur Squamous Epith Cells Urine Bacteria Ur Culture Indicated? Nasal Screen MRSA (PCR) Negative for mrsa SARS-CoV-2 (PCR) Negative 08/03/22 08/03/22 05:31 05:31 WBC RBC Hgb Hct MCV MCH MCHC RDW Plt Count Neut % (Auto) Lymph % (Auto) [place] % (Auto) Eos % (Auto) Baso % (Auto) Neut # (Auto) Lymph # (Auto) [place] # (Auto) Eos # (Auto) Baso # (Auto) ESR PT 12.9 H INR 1.1 Sodium 139 Potassium 3.4 Chloride 101 Carbon Dioxide 30 BUN 13 Creatinine 0.79 Estimated GFR > 60 BUN/Creatinine Ratio 16.5 Glucose 106 Hemoglobin A1c Lactate Calcium 8.4 Magnesium 1.9 Total Bilirubin AST ALT Alkaline Phosphatase C-Reactive Protein Total Protein Albumin Globulin Albumin/Globulin Ratio Procalcitonin Urine Color Urine Appearance Urine pH Ur Specific [place] Urine Protein Urine Glucose (UA) Urine Ketones Urine Occult Blood Urine Nitrate Urine Bilirubin Urine Urobilinogen Ur Leukocyte Esterase Urine RBC Urine WBC Ur Squamous Epith Cells Urine Bacteria Ur Culture Indicated? Nasal Screen MRSA (PCR) SARS-CoV-2 (PCR) [facility] Medical History (Updated 08/03/22 @ 09:53 by Stacie Uribe MD) Adiposa dolorosa Dinh's palsy Chronic migraine Chronic pain Depression Depression with anxiety Dercum disease Diabetes GERD (gastroesophageal reflux disease) Headache Hypertension Neuropathy Opiate dependence, continuous Restless leg syndrome Surgical History (Updated 08/02/22 @ 22:04 by DEBRA Driver) History of cholecystectomy History of hysterectomy Family History Mother Hypertension Renal failure Father Renal failure Congestive heart failure Social History household members: spouse Tobacco & Substance Use Smoking Status: Former smoker alcohol intake: never substance use type: does not use Assessment & Plan Assessment and plan (1) Diabetes: Problem details: Management per hospitalist team. A1c 6.2. Patient does have some peripheral neuropathy the level of the toes bilaterally Status: Acute (2) Toe osteomyelitis: Problem details: Concern for distal tuft osteomyelitis bilateral great toes. She has small black eschar over the right great toe. No current drainage or fluctuant collection. Recommend proceeding with MRI to evaluate for underlying bony involvement. I do not see any current surgical indication. Empiric antibiotics reasonable. Await cultures--prelim polymicrobial which is common for diabetic foot. May require IV or oral antibiotics and follow-up with wound care and or podiatry on an outpatient basis. Status: Acute COVID-19 COVID-19 status: Negative Time Spent With Patient Time with patient: less than 30 minutes Critical Care time: I spent a total of [] minutes of critical care time on this patient's care today; this time is exclusive of procedural time.
[2022-08-03] MEDS: LOSARTAN 50 MG TABLET 100 MG PO (09:46)
[2022-08-03] MEDS: CITALOPRAM 10 MG TABLET 40 MG PO (09:46)
[2022-08-03] MEDS: hydroCHLOROthiazide 25 MG TABLET PO (09:47)
[2022-08-03] MEDS: MORPHINE 2 MG/ML INJ IV (09:47)
[2022-08-03] MEDS: PREGABALIN 50 MG CAPSULE 100 MG PO ×3 (09:47→21:07)
[2022-08-03] MEDS: POTASSIUM CHLORIDE 20 MEQ TAB 40 MEQ PO (10:00)
[2022-08-03] MEDS: PIPERACILLIN/TAZO 3.375 GM in SODIUM CHLORIDE 0.9% 100 ML IV ×3 (10:00→23:07)
--- NOTE | 2022-08-03 14:02 | CM.DANOTE ---
DCP/Assessment: Reviewed chart. Patient is a 66yr old female admitted to I.. with right great toe injury. Patient currently OBS status pending further testing. Met with patient explained CM/SW role. Patient reports that she resides with her spouse/Jamal in [place]. Patient reports that they both have diabetic feet so they try to help one another? Patient primarily I at baseline. Patient reports that she could not get in to see her PCP therefore, she came to the hospital. MRI and cultures pending. Currents suspicion is osteo. Patient open and agreeable to home health for therapy and IV abx if needed. Notified patient that we would check back with patient tomorrow when more medical information becomes available. P: Anticipate home with HH with or without IV abx. FREDERICK Discharge Planning/Care Management CM Discharge Assessment Start: 08/03/22 13:54 Freq: Status: Active Protocol: Document 08/03/22 13:55 FREDERICK (Rec: 08/03/22 14:02 [facility] [id number]) Discharge Planning Assessment Assigned Multimedia Services Manager SHAHRAM Hinds Advance Directives? No Advance Directives on File No History Provided By Patient,Medical Record Prior Living Arrangements Apartment/Condo Household Members spouse Type of transporation used prior to Drives own vehicle admit Independent with ADL's Yes Is patient alert and oriented? Yes Caregiver for Another No DME Already Rented / Owned FWW / Walker,Cane Comment Patient uses cane prn. Patient/Family Preference Home with Home Health Barriers to Discharge No Discharge Plan Home with Home Health Transportation Arrangement Family to provide transport. Referrals Initiated Other Additional Comment Needs uclear at this time. Patient had MRI of right foot today. Patient with suspested osteo? Patient open to HH for therapy and IV abx if needed. Currently awaiting recommendations. Whiteboard Updated in Patient Room with Yes name and ext. # of Multimedia Services Manager Review Status In Process Next Review Type Continued Stay Review
[2022-08-03] MEDS: MORPHINE ER 15 MG TABLET PO ×2 (14:04→21:07)
--- NOTE | 2022-08-03 17:01 | PM.PN.1 ---
Subjective Subjective Date Patient Seen: 08/03/22 Interval history: Patient continues to have significant pain of both toes. Denies any fever. No chest pain or no shortness of breath. Patient got an MRI of her right foot, confirms osteomyelitis. Exam Vital Signs (past 8 hours): - 08/03/22 11:00 08/03/22 12:00 08/03/22 15:00 Temperature 96.8 F L 97.0 F L Pulse Rate 63 75 Respiratory Rate 14 18 Blood Pressure 178/75 H 159/72 H Pulse Oximetry 99 99 99 Oxygen Delivery Method Room Air Oxygen Flow Rate 0 0 08/03/22 16:00 Temperature Pulse Rate Respiratory Rate Blood Pressure Pulse Oximetry 99 Oxygen Delivery Method Room Air Oxygen Flow Rate Oxygen Delivery Method Room Air Oxygen Flow Rate 0 Narrative Exam Narrative: Patient both great toes are swollen, have redness, right greater than left, decreased sensation of both foot. Mildly decreased pulses on both extremities and also decreased sensations in both foot. Constitutional, cardiovascular, respiratory, skin, neuro exam done, negative other than as mentioned above. Objective Labs Result Diagrams: 08/03/22 05:31 08/03/22 05:31 Labs: Laboratory Results - last 24 hr 08/02/22 08/02/22 08/02/22 16:51 16:51 16:51 WBC 8.7 RBC 4.28 Hgb 12.6 Hct 36.7 MCV 85.9 MCH 29.5 MCHC 34.4 RDW 14.5 Plt Count 171 Neut % (Auto) 76.1 H Lymph % (Auto) 16.0 L [place] % (Auto) 5.7 Eos % (Auto) 1.7 L Baso % (Auto) 0.5 Neut # (Auto) 6600 Lymph # (Auto) 1400 [place] # (Auto) 500 Eos # (Auto) 100 Baso # (Auto) 0 ESR 34 H PT INR Sodium 137 Potassium 3.5 Chloride 97 L Carbon Dioxide 32 BUN 12 Creatinine 0.83 Estimated GFR > 60 BUN/Creatinine Ratio 14.5 Glucose 103 Hemoglobin A1c Lactate 1.0 Calcium 9.0 Magnesium Total Bilirubin 0.8 AST 20 ALT 9 Alkaline Phosphatase 72 C-Reactive Protein 1.8 H Total Protein 8.0 Albumin 4.3 Globulin 3.7 Albumin/Globulin Ratio 1.2 Procalcitonin Urine Color Urine Appearance Urine pH Ur Specific [place] Urine Protein Urine Glucose (UA) Urine Ketones Urine Occult Blood Urine Nitrate Urine Bilirubin Urine Urobilinogen Ur Leukocyte Esterase Urine RBC Urine WBC Ur Squamous Epith Cells Urine Bacteria Ur Culture Indicated? Nasal Screen MRSA (PCR) SARS-CoV-2 (PCR) 08/02/22 08/02/22 08/02/22 16:51 16:51 16:56 WBC RBC Hgb Hct MCV MCH MCHC RDW Plt Count Neut % (Auto) Lymph % (Auto) [place] % (Auto) Eos % (Auto) Baso % (Auto) Neut # (Auto) Lymph # (Auto) [place] # (Auto) Eos # (Auto) Baso # (Auto) ESR PT INR Sodium Potassium Chloride Carbon Dioxide BUN Creatinine Estimated GFR BUN/Creatinine Ratio Glucose Hemoglobin A1c 5.2 Lactate Calcium Magnesium Total Bilirubin AST ALT Alkaline Phosphatase C-Reactive Protein Total Protein Albumin Globulin Albumin/Globulin Ratio Procalcitonin 0.07 Urine Color Yellow Urine Appearance Clear Urine pH 7.0 Ur Specific [place] <=1.005 Urine Protein Negative Urine Glucose (UA) Negative Urine Ketones Negative Urine Occult Blood Negative Urine Nitrate Negative Urine Bilirubin Negative Urine Urobilinogen 0.2 Ur Leukocyte Esterase Negative Urine RBC 0-1/hpf Urine WBC 0-1/hpf Ur Squamous Epith Cells 0-1 /hpf Urine Bacteria None seen Ur Culture Indicated? Cult not indicated Nasal Screen MRSA (PCR) SARS-CoV-2 (PCR) 08/02/22 08/02/22 08/03/22 19:27 21:40 05:31 WBC 6.5 RBC 3.83 L Hgb 11.2 L Hct 32.7 L MCV 85.5 MCH 29.3 MCHC 34.2 RDW 14.4 Plt Count 163 Neut % (Auto) 67.3 Lymph % (Auto) 24.6 L [place] % (Auto) 5.6 Eos % (Auto) 1.9 L Baso % (Auto) 0.6 Neut # (Auto) 4400 Lymph # (Auto) 1600 [place] # (Auto) 400 Eos # (Auto) 100 Baso # (Auto) 0 ESR PT INR Sodium Potassium Chloride Carbon Dioxide BUN Creatinine Estimated GFR BUN/Creatinine Ratio Glucose Hemoglobin A1c Lactate Calcium Magnesium Total Bilirubin AST ALT Alkaline Phosphatase C-Reactive Protein Total Protein Albumin Globulin Albumin/Globulin Ratio Procalcitonin Urine Color Urine Appearance Urine pH Ur Specific [place] Urine Protein Urine Glucose (UA) Urine Ketones Urine Occult Blood Urine Nitrate Urine Bilirubin Urine Urobilinogen Ur Leukocyte Esterase Urine RBC Urine WBC Ur Squamous Epith Cells Urine Bacteria Ur Culture Indicated? Nasal Screen MRSA (PCR) Negative for mrsa SARS-CoV-2 (PCR) Negative 08/03/22 08/03/22 05:31 05:31 WBC RBC Hgb Hct MCV MCH MCHC RDW Plt Count Neut % (Auto) Lymph % (Auto) [place] % (Auto) Eos % (Auto) Baso % (Auto) Neut # (Auto) Lymph # (Auto) [place] # (Auto) Eos # (Auto) Baso # (Auto) ESR PT 12.9 H INR 1.1 Sodium 139 Potassium 3.4 Chloride 101 Carbon Dioxide 30 BUN 13 Creatinine 0.79 Estimated GFR > 60 BUN/Creatinine Ratio 16.5 Glucose 106 Hemoglobin A1c Lactate Calcium 8.4 Magnesium 1.9 Total Bilirubin AST ALT Alkaline Phosphatase C-Reactive Protein Total Protein Albumin Globulin Albumin/Globulin Ratio Procalcitonin Urine Color Urine Appearance Urine pH Ur Specific [place] Urine Protein Urine Glucose (UA) Urine Ketones Urine Occult Blood Urine Nitrate Urine Bilirubin Urine Urobilinogen Ur Leukocyte Esterase Urine RBC Urine WBC Ur Squamous Epith Cells Urine Bacteria Ur Culture Indicated? Nasal Screen MRSA (PCR) SARS-CoV-2 (PCR) [facility] Medical History (Updated 08/03/22 @ 09:53 by Stacie Uribe MD) Adiposa dolorosa Dinh's palsy Chronic migraine Chronic pain Depression Depression with anxiety Dercum disease Diabetes GERD (gastroesophageal reflux disease) Headache Hypertension Neuropathy Opiate dependence, continuous Restless leg syndrome Surgical History (Updated 08/02/22 @ 22:04 by DEBRA Driver) History of cholecystectomy History of hysterectomy Family History Mother Hypertension Renal failure Father Renal failure Congestive heart failure Social History household members: spouse Smoking Status: Former smoker alcohol intake: never substance use type: does not use Assessment & Plan Assessment & Plan narrative: Acute osteomyelitis of right foot great toe -continue IV antibiotics, podiatry consultation in the morning, might need debridement - Cultures pending Yxy-[id number]-foygegssk type 2 diabetes with Neuropathy and Diabetic foot ulceration (rt& Lt great toe) Chronic pain, with opiate dependence Other medical condition: Hypertension, essential, chronic -continue losartan HCTZ Depression with anxiety, chronic-continue citalopram Overweight as evidence by BMI of 34.7, due to excess calories Code status:? Full Surrogate decision maker:? Jamal Chauhan Spouse DVT prophylaxis -enoxaparin Care plan discussed with the patient and family at bedside, answered all questions Time Spent With Patient Critical Care time: I spent a total of [] minutes of critical care time on this patient's care today; this time is exclusive of procedural time. Quality VTE Deep Vein Thrombosis/Pulmonary Embolism Present on Admission: Yes
[2022-08-03] MEDS: LACTATED RINGERS 1,000 ML 60 ML IV (19:07)
[2022-08-03] MEDS: ROPINIROLE 0.25 MG TABLET 0.5 MG PO (21:07)
[2022-08-04] VITALS (8 sets, daily range): BP systolic 125–156; BP diastolic 58–83; PULSE 58–69; RESP 16–18; TEMP 36.1–37.2; O2SAT 94–97
[2022-08-04] MEDS: MORPHINE ER 15 MG TABLET PO ×3 (05:21→20:56)
[2022-08-04 06:14] LABS: Add Manual Diff / Slide Review NO; Basophils Absolute Auto 0 /uL (0-100); Basophils Percent Auto 0.4 % (0-2); Eosinophils Absolute Auto 100 /uL (0-450); Eosinophils Percent Auto 1.7 % (2-4); Hematocrit 30.8 % (36-46); Hemoglobin 10.5 g/dL (12.0-16.0); Lymphocytes Absolute Auto 1600 /uL (1100-4500); Lymphocytes Percent Auto 26.8 % (25-40); Mean Corpuscular HGB Conc 33.9 % (30-36); Mean Corpuscular Hemoglobin 29.4 PG (26-34); Mean Corpuscular Volume 86.5 fL (80-100); Monocytes Absolute Auto 300 /uL (0-900); Monocytes Percent Auto 5.3 % (3-14); Neutrophils Absolute Auto 4000 /uL (1500-7000); Neutrophils Percent Auto 65.8 % (50-75); Platelet Count 144 X10^3/uL (150-400); Red Blood Cell Count 3.57 X10^6/uL (4.0-5.2); Red Cell Distribution Width 14.5 % (11.6-14.8)
[2022-08-04 06:23] LABS: BUN Creatinine Ratio 12.5 (6-22); Blood Urea Nitrogen 10 mg/dL (7-17); Calcium 8.7 mg/dL (8.4-10.2); Carbon Dioxide 32 mmol/L (22-32); Chloride 102 mmol/L (98-107); Estimated Glomerular Filt Rate > 60 mL/min (>60); Glucose 110 mg/dL (80-110); HEMOLYSIS < 15 (0-50); Potassium 3.5 mmol/L (3.4-5.1); Sodium 139 mmol/L (137-145)
[2022-08-04] MEDS: PIPERACILLIN/TAZO 3.375 GM in SODIUM CHLORIDE 0.9% 100 ML IV ×3 (07:53→23:34)
[2022-08-04] MEDS: CITALOPRAM 10 MG TABLET 40 MG PO (08:06)
[2022-08-04] MEDS: ENOXAPARIN 40 MG/0.4 ML SYRINGE SUBCUT (08:07)
[2022-08-04] MEDS: LOSARTAN 50 MG TABLET 100 MG PO (08:07)
[2022-08-04] MEDS: hydroCHLOROthiazide 25 MG TABLET PO (08:07)
[2022-08-04] MEDS: PREGABALIN 50 MG CAPSULE 100 MG PO ×3 (08:07→20:44)
--- NOTE | 2022-08-04 11:49 | CM.DPC ---
DCP Cont: Referral initiated to [facility] for home IV abx. Spoke with [facility] and they are aware. DCP to continue following case to determine appropriate steps for discharge. Janette Allen RN/DCP
--- NOTE | 2022-08-04 11:54 | PM.PN.1 ---
Subjective Subjective Date Patient Seen: 08/04/22 Time Patient Seen: 08:00 Interval history: She is complaining of right toe pain which is a bit worse today. no fever/chills. Exam Vital Signs (past 8 hours): - 08/04/22 06:00 08/04/22 08:07 08/04/22 10:55 Temperature 97.7 F 97.6 F Pulse Rate 58 L 58 L Respiratory Rate 16 18 Blood Pressure 135/83 135/83 125/60 Pulse Oximetry 96 96 Oxygen Flow Rate 0 0 Oxygen Delivery Method Room Air Oxygen Flow Rate 0 Narrative Exam Narrative: GEN: no acute distress EXT: R great toe with black ulcer on lateral, distal aspect with surrounding swelling and erythema, left great toe with ulcer with minimal erythema Objective Labs Result Diagrams: 08/04/22 06:00 08/04/22 06:00 Labs: Laboratory Results - last 24 hr 08/04/22 08/04/22 06:00 06:00 WBC 6.0 RBC 3.57 L Hgb 10.5 L Hct 30.8 L MCV 86.5 MCH 29.4 MCHC 33.9 RDW 14.5 Plt Count 144 L Neut % (Auto) 65.8 Lymph % (Auto) 26.8 [place] % (Auto) 5.3 Eos % (Auto) 1.7 L Baso % (Auto) 0.4 Neut # (Auto) 4000 Lymph # (Auto) 1600 [place] # (Auto) 300 Eos # (Auto) 100 Baso # (Auto) 0 Sodium 139 Potassium 3.5 Chloride 102 Carbon Dioxide 32 BUN 10 Creatinine 0.80 Estimated GFR > 60 BUN/Creatinine Ratio 12.5 Glucose 110 Calcium 8.7 [facility] Medical History (Updated 08/03/22 @ 09:53 by Stacie Uribe MD) Adiposa dolorosa Dinh's palsy Chronic migraine Chronic pain Depression Depression with anxiety Dercum disease Diabetes GERD (gastroesophageal reflux disease) Headache Hypertension Neuropathy Opiate dependence, continuous Restless leg syndrome Surgical History (Updated 08/02/22 @ 22:04 by DEBRA Driver) History of cholecystectomy History of hysterectomy Family History Mother Hypertension Renal failure Father Renal failure Congestive heart failure Social History household members: spouse Smoking Status: Former smoker alcohol intake: never substance use type: does not use Assessment & Plan Assessment & Plan narrative: 1. Acute osteomyelitis of right great toe -continue IV antibiotics -appreciate ortho consult, await podiatry recommendations -follow up cultures showing wound culture with MSSA speciated but also with GPR and GNR on gram stain -for now will keep on cefazolin and zosyn and narrow if able pending further cultures Type 2 diabetes -continue insulin sliding scale 3. Chronic pain, with opiate dependence -continue pain meds prn Other medical condition: Hypertension, essential, chronic -continue losartan HCTZ Depression with anxiety, chronic-continue citalopram Overweight as evidence by BMI of 34.7, due to excess calories Time Spent With Patient Critical Care time: I spent a total of [] minutes of critical care time on this patient's care today; this time is exclusive of procedural time. Quality VTE Deep Vein Thrombosis/Pulmonary Embolism Present on Admission: Yes
--- NOTE | 2022-08-04 12:06 | DI.US.S_ITS ---
PROCEDURE: US ARTERIAL DUPLEX LE BI INDICATIONS: DECREASED DISTAL PULSES TECHNIQUE: Color and pulse Doppler interrogation was performed of both lower extremity arterial systems, with image documentation. COMPARISON: None. FINDINGS: Right lower extremity: Common femoral artery: 155 cm/sec, with triphasic flow. Deep femoral artery: 128 cm/sec, with monophasic flow. Proximal superficial femoral artery: 109 cm/sec, with monophasic flow. Mid superficial femoral artery: Obstructed Distal superficial femoral artery: 63 cm/sec, with monophasic flow. Popliteal artery: 33 cm/sec, with monophasic flow. Posterior tibial artery: 13 cm/sec, with monophasic flow. Anterior tibial artery/dorsalis pedis: 27 cm/sec, with monophasic flow. Almaraz-scale imaging description: Atherosclerotic plaque Left lower extremity: Common femoral artery: 119 cm/sec, with biphasic flow. Deep femoral artery: 80 cm/sec, with monophasic flow. Proximal superficial femoral artery: 254 cm/sec, with biphasic flow. Mid superficial femoral artery: 196 cm/sec, with biphasic flow. Distal superficial femoral artery: 183 cm/sec, with monophasic flow. Popliteal artery: 61 cm/sec, with monophasic flow. Posterior tibial artery: Obstructed distally Anterior tibial artery/dorsalis pedis: 70 cm/sec, with monophasic flow. Almarza-scale imaging description: Atherosclerotic plaque IMPRESSION: Diffuse bilateral peripheral vascular disease. There is obstruction of the right mid SFA with reconstitution and three-vessel runoff. Severe stenosis in the left proximal SFA without occlusion. Two vessel runoff distally Bilateral dorsalis pedis arteries are patent Approved by: Ricardo Verdugo M.D. on 08/04/2022 at 14:44
--- NOTE | 2022-08-04 12:07 | PM.PROC.1 ---
Procedures Date/Time Date of procedure: 08/04/22 Time of procedure: 12:08 General Procedure description: Patient was indicated for right great toe removal secondary to osteomyelitis distal phalanx with distal toe ulceration around the distal tip and medial nail fold. Consent was obtained from patient. The right toe was prepped in the standard sterile fashion. 4 cc of 2% lidocaine was injected in a digital block for local anesthetic. Then under sterile technique the nail was removed and distal ulceration was debrided of necrotic tissue and some dry eschar. Ulceration did probe deep to the tuft at the medial distal tuft and nail bed. No gross purulence. No abscess. Wound was dressed with Vaseline gauze, 4x4s, Kerlix and Coban. Patient tolerated procedure well. There were no immediate complications. Complications: none Bursa Procedures Local anesthetic used: lidocaine 2% Amount of anesthesia used (ml): 4
--- NOTE | 2022-08-04 12:10 | P.PN_ITS ---
Subjective Subjective Date Patient Seen: 08/04/22 Time Patient Seen: 12:10 Interval history: Patient is a 66-year-old diabetic female hospitalized for bilateral toe ulcerations. Right great toe with area of necrosis and reported drainage. Left great toe tender an area of redness. States both toes are sore. Has moderate neuropathy. Had a swab from the wound on the right great toe in the ER growing MSSA. She is been on broad-spectrum antibiotics PICC line placed. Her is familiar with wound care and of foot diabetic ulcerations and a seen both [facility] and Dr. Abdul and Dr. Ngfor his own issues. Patient had an MRI of the right foot demonstrated edema of the distal phalanx no abscess Exam Vital Signs (past 8 hours): - 08/04/22 06:00 08/04/22 08:07 08/04/22 10:55 Temperature 97.7 F 97.6 F Pulse Rate 58 L 58 L Respiratory Rate 16 18 Blood Pressure 135/83 135/83 125/60 Pulse Oximetry 96 96 Oxygen Flow Rate 0 0 Oxygen Delivery Method Room Air Oxygen Flow Rate 0 Narrative Exam Narrative: Alert oriented female in no acute distress. at bedside. Bilateral lower extremities examined. Left great toe with a small area of erythema and scab at the distal right great toe. Mild swelling. No focal fluctuance or abscess. Left great toenail previously fallen off and partially grown back. Right great toenail mostly intact. There is some lifting from the medial nail fold. There is area of black eschar at the distal medial great toe mostly dry small area of wet gangrene right at the distal tuft tip at the edge of the nail. Moderate cellulitis to the level of the IP joint. No ascending cellulitis. No fluctuance. No obvious abscess. I am unable to get reliable palpation of the dorsalis pedis pulses today. Capillary refill is brisk. Calves are soft. Sensation decreased at the toes bilaterally. Appears mostly normal around the dorsum of the foot. Objective Labs Result Diagrams: 08/04/22 06:00 08/04/22 06:00 Labs: Laboratory Results - last 24 hr 08/04/22 08/04/22 06:00 06:00 WBC 6.0 RBC 3.57 L Hgb 10.5 L Hct 30.8 L MCV 86.5 MCH 29.4 MCHC 33.9 RDW 14.5 Plt Count 144 L Neut % (Auto) 65.8 Lymph % (Auto) 26.8 Bent % (Auto) 5.3 Eos % (Auto) 1.7 L Baso % (Auto) 0.4 Neut # (Auto) 4000 Lymph # (Auto) 1600 Bent # (Auto) 300 Eos # (Auto) 100 Baso # (Auto) 0 Sodium 139 Potassium 3.5 Chloride 102 Carbon Dioxide 32 BUN 10 Creatinine 0.80 Estimated GFR > 60 BUN/Creatinine Ratio 12.5 Glucose 110 Calcium 8.7 PFSH Medical History (Updated 08/03/22 @ 09:53 by Stacie Uribe MD) Adiposa dolorosa Dinh's palsy Chronic migraine Chronic pain Depression Depression with anxiety Dercum disease Diabetes GERD (gastroesophageal reflux disease) Headache Hypertension Neuropathy Opiate dependence, continuous Restless leg syndrome Surgical History (Updated 08/02/22 @ 22:04 by DEBRA Driver) History of cholecystectomy History of hysterectomy Family History Mother Hypertension Renal failure Father Renal failure Congestive heart failure Social History household members: spouse Smoking Status: Former smoker alcohol intake: never substance use type: does not use Assessment & Plan Assessment and plan (1) Toe osteomyelitis: Problem details: Concern for distal tuft osteomyelitis bilateral great toes. She has small black eschar over the right great toe. No current drainage or fluctuant collection. Recommend proceeding with MRI to evaluate for underlying bony involvement. I do not see any current surgical indication. Empiric antibiotics reasonable. Await cultures--prelim polymicrobial which is common for diabetic foot. May require IV or oral antibiotics and follow-up with wound care and or podiatry on an outpatient basis. Status: Acute Plan: Indicated for right great toe removal to decompress the area and further evaluate the wound. Patient consents to this. Was done as described in the procedure. This allowed inspection of the eschar. This was debrided small area of wet gangrene does track down to the distal phalanx. No abscess cavity is demonstrated. Areas irrigated and a dressing applied. Because I could not palpate reliable pulses bilaterally and the bilateral presentation of her great toe issues I am concerned about a vascular underlying comorbid condition. Recommend arterial ultrasound bilateral lower extremities to assess for peripheral vascular disease. If significant stenosis found that is treatable recommend referral to vascular surgery to address this. Patient will also need 6 weeks of IV antibiotics recommend follow-up with Infectious Disease and recommend follow-up with wound care outpatient. Discussed if ulcers do not heal may eventually need partial amputations but 1st goal would be to treat medically with appropriate IV antibiotics and to optimize blood flow and wound care. Recommend wound care for dressing changes. And use of an offloading shoe. (2) Diabetes: Problem details: Management per hospitalist team. A1c 6.2. Patient does have some peripheral neuropathy the level of the toes bilaterally Status: Acute COVID-19 COVID-19 status: Negative Time Spent With Patient Time with patient: 30 to 49 minutes with 50% spent counseling/coordinating care Critical Care time: I spent a total of [] minutes of critical care time on this patient's care today; this time is exclusive of procedural time. Quality VTE Deep Vein Thrombosis/Pulmonary Embolism Present on Admission: Yes
[2022-08-04] MEDS: CEFAZOLIN 2 GM/100 ML PREMIX 100 ML IV ×2 (12:33→18:24)
[2022-08-04] MEDS: POTASSIUM CHLORIDE 20 MEQ TAB 40 MEQ PO (12:34)
[2022-08-04] MEDS: LIDOCAINE 2% INJ MDV 20ML 20 ML INJ (12:34)
[2022-08-04] MEDS: MORPHINE 2 MG/ML INJ IV ×2 (12:47→18:23)
--- NOTE | 2022-08-04 15:55 | CM.DPC ---
DCP Cont: Christiano from [facility] called and stated that he ran patient's insurance, and patient's cost would be 20%, meaning it would cost her $153.00 a week for the one IV ABO, Cefazolin. He will hold off calling her until more is known tomorrow regarding podiatry recommendations if she does need tank terminal gauger IV ABO. Let him know that care management will update him tomorrow. P: DCP to closely monitor, and will update Christiano from [facility] on plan, and if he needs to update patient on cost. Gretchen Perry RN/Plate Keeper
[2022-08-04] MEDS: ACETAMINOPHEN 325 MG TABLET 650 MG PO (20:44)
[2022-08-05] VITALS (10 sets, daily range): BP systolic 119–165; BP diastolic 58–75; PULSE 54–65; RESP 16–18; TEMP 36.2–36.3; O2SAT 95–100
[2022-08-05] MEDS: CEFAZOLIN 2 GM/100 ML PREMIX 100 ML IV ×2 (02:04→11:41)
[2022-08-05] MEDS: ACETAMINOPHEN 325 MG TABLET 650 MG PO (02:27)
[2022-08-05] MEDS: MORPHINE ER 15 MG TABLET PO ×2 (05:31→15:04)
[2022-08-05 06:25] LABS: Hematocrit 32.2 % (36-46); Hemoglobin 11.1 g/dL (12.0-16.0); Mean Corpuscular HGB Conc 34.3 % (30-36); Mean Corpuscular Hemoglobin 29.4 PG (26-34); Mean Corpuscular Volume 85.7 fL (80-100); Platelet Count 143 X10^3/uL (150-400); Red Blood Cell Count 3.76 X10^6/uL (4.0-5.2); Red Cell Distribution Width 14.4 % (11.6-14.8); White Blood Cell Count 5.6 X10^3/uL (4.5-11.0)
[2022-08-05 06:29] LABS: BUN Creatinine Ratio 15.2 (6-22); Blood Urea Nitrogen 14 mg/dL (7-17); Calcium 8.9 mg/dL (8.4-10.2); Carbon Dioxide 31 mmol/L (22-32); Chloride 101 mmol/L (98-107); Estimated Glomerular Filt Rate > 60 mL/min (>60); Glucose 108 mg/dL (80-110); HEMOLYSIS < 15 (0-50); Potassium 3.8 mmol/L (3.4-5.1); Sodium 141 mmol/L (137-145)
[2022-08-05] MEDS: PIPERACILLIN/TAZO 3.375 GM in SODIUM CHLORIDE 0.9% 100 ML IV (06:57)
[2022-08-05] MEDS: LOSARTAN 50 MG TABLET 100 MG PO (08:52)
[2022-08-05] MEDS: CITALOPRAM 10 MG TABLET 40 MG PO (08:53)
[2022-08-05] MEDS: PREGABALIN 50 MG CAPSULE 100 MG PO ×2 (08:53→15:05)
[2022-08-05] MEDS: ENOXAPARIN 40 MG/0.4 ML SYRINGE SUBCUT (08:53)
[2022-08-05] MEDS: hydroCHLOROthiazide 25 MG TABLET PO (08:53)
[2022-08-05] MEDS: MORPHINE IR 15 MG TABLET PO (09:08)
--- NOTE | 2022-08-05 10:39 | CM.DPC ---
Addendum entered by Janette Allen R.N. 08/05/22 13:01: Spoke with Biju Johnston and he states that the patient will be following up with Dr. Uribe and she will follow for IV infusions. Dr. Soler to indicate this information in the discharge. DCP spoke to Dr. Soler regarding IV infusions and she is to give a one time ertapenem dose today @ 1530 and then discharge home for a 1000 appointment with [facility]. DCP spoke to pt and pt is agreeable to this plan. DCP faxed PICC insertion note and progress note about IV abx. P: Pt to discharge home today once ertapenem dose is complete. Janette Allen RN/EVANS Original Note: DCP Cont: Spoke with Christiano @ [facility] and they have tentatively planned to start patient on home IV abx on 08/06. DCP requested to see if they have availability today to start patient. Christiano to look into it. Christiano requesting PICC line insertion record and a formal order for antibiotics including type dose etc. Christiano to contact patient to talk about weekly rate. DCP spoke with pt and she is awaiting [facility] call. DCP spoke with coordinator and is requesting her help with coordination of care with ortho as orders and follow up would need to be through them. CARLOSP to continue to follow. Janette Allen RN/EVANS
--- NOTE | 2022-08-05 12:35 | PM.PN.1 ---
Subjective Subjective Interval history: Progress note to clarify IV antibiotics post discharge. Exam Vital Signs (past 8 hours): - 08/05/22 07:30 08/05/22 08:52 08/05/22 11:00 Temperature 97.1 F L 97.2 F L Pulse Rate 54 L 60 59 L Respiratory Rate 18 18 Blood Pressure 119/58 L 165/75 H 164/65 H Pulse Oximetry 95 100 Oxygen Flow Rate 0 0 Oxygen Delivery Method Room Air Oxygen Flow Rate 0 Objective Labs Result Diagrams: 08/05/22 05:37 08/05/22 05:37 Labs: Laboratory Results - last 24 hr 08/05/22 08/05/22 05:37 05:37 WBC 5.6 RBC 3.76 L Hgb 11.1 L Hct 32.2 L MCV 85.7 MCH 29.4 MCHC 34.3 RDW 14.4 Plt Count 143 L Sodium 141 Potassium 3.8 Chloride 101 Carbon Dioxide 31 BUN 14 Creatinine 0.92 Estimated GFR > 60 BUN/Creatinine Ratio 15.2 Glucose 108 Calcium 8.9 [facility] Medical History (Updated 08/03/22 @ 09:53 by Stacie Uribe MD) Adiposa dolorosa Dinh's palsy Chronic migraine Chronic pain Depression Depression with anxiety Dercum disease Diabetes GERD (gastroesophageal reflux disease) Headache Hypertension Neuropathy Opiate dependence, continuous Restless leg syndrome Surgical History (Updated 08/02/22 @ 22:04 [facility] History of cholecystectomy History of hysterectomy Family History Mother Hypertension Renal failure Father Renal failure Congestive heart failure Social History household members: spouse Smoking Status: Former smoker alcohol intake: never substance use type: does not use Assessment & Plan Assessment & Plan narrative: Patient will be given ertapenem 1 g IV at 3:30 p.m. today. Once this antibiotic has been given, the patient can be discharged. Plan tomorrow will be that IV infusion team will see the patient in her home at 10:00 a.m. tomorrow. She will receive IV infusion instructions. She needs to be initiated on cefazolin 2 g IV every 8 hours starting at 3 p.m. on August 06 with subsequent doses at 11:00 p.m. and 7:00 a.m. with this schedule daily until 6 weeks following the date of August 04, 2022 which would be until the end of September 15, 2022. Time Spent With Patient Critical Care time: I spent a total of [] minutes of critical care time on this patient's care today; this time is exclusive of procedural time. Quality VTE Deep Vein Thrombosis/Pulmonary Embolism Present on Admission: Yes
[2022-08-05] MEDS: ERTAPENEM 1 GM in SODIUM CHLORIDE 0.9% 100 ML IV (15:06)
--- NOTE | 2022-08-05 16:25 | P.DS_ITS ---
History of Present Illness History of Present Illness Date Patient Seen: 08/05/22 Chief complaint: right foot injury (Great Toe) swelling Narrative: Arely Chauhan is a 66-year-old female with a history of Dercum Dz, adiposis Dolorosa-resulting in chronic pain, neuropathy, RLS, non insulin-dependent type 2 diabetes, hypertension, depression with anxiety, GERD, chronic migraines, and chronic pain who presented to the ED with a chief complaint of pain swelling redness and a foul odor to right great toe. Discharge Providers Provider Date of admission: 08/02/22 19:28 Discharge Date: 08/05/22 Primary care physician: Waldemar Simpson MD Consults: 08/02/22 19:51 Consult to Dietitian, Adult Routine Comment: Reason For Exam: BMI 34.7, DM, osteo Consult to Physician Routine Comment: Consulting Provider: Stacie Uribe Reason for consultation: rt great toe osteo Has provider been notified: Yes 08/02/22 21:59 Consult After Hours PICC Line RN Routine Comment: Discharge provider: Queenie Dacosta MD Summary Hospital Course Discharge Diagnosis: Most responsible diagnosis: Osteomyelitis distal phalanx right great toe Pre-admit diagnosis: Bilateral foot diabetic ulcerations Diabetic foot infections with Staph aureus bilaterally Osteomyelitis distal phalanx right great toe Adiposa dolorosa Diabetes Dercum disease Post admit diagnoses: None Secondary diagnoses: Dinh's palsy Chronic migraine Chronic pain Depression Depression with anxiety GERD (gastroesophageal reflux disease) Headache Hypertension Neuropathy Opiate dependence, continuous Restless leg syndrome History of cholecystectomy History of hysterectomy Hospital Course: Arely Chauhan is a 66-year-old female with a history of Dercum Dz, adiposis Dolorosa-resulting in chronic pain, neuropathy, RLS, non insulin-dependent type 2 diabetes, hypertension, depression with anxiety, GERD, chronic migraines, and chronic pain who presented to the ED with a chief complaint of pain swelling redness and a foul odor to right great toe. MRI demonstrated distal phalanx right great toe osteomyelitis. Patient had positive cultures of wounds on both right and left feet. Both cultures were positive for Staph aureus that was MSSA. Patient was transition to cefazolin 2 g IV every 8 hours after being involved both cefazolin and Zosyn. With a PICC line in place, home infusion of antibiotics was set up for the patient. The home infusion of antibiotics are to commence on August 06, 2022. With a dose of antibiotics commencing at 3:00 p.m. on August 06, 2022 and a regimen of 2 g IV every 8 hours until September 15, 2022 at midnight. Status at Discharge Cognitive/behavioral status at discharge: at baseline, oriented Functional status at discharge: independent ambulation Overall status at discharge: patient is progressing back to baseline Time Spent with Patient Time spent: Greater than 30 minutes Exam Vital Signs (past 8 hours): - 08/05/22 08:52 08/05/22 11:00 08/05/22 15:00 Temperature 97.2 F L 97.2 F L Pulse Rate 60 59 L 59 L Respiratory Rate 18 18 Blood Pressure 165/75 H 164/65 H 151/63 H Pulse Oximetry 100 95 Oxygen Delivery Method Oxygen Flow Rate 0 0 08/05/22 12:00 Temperature Pulse Rate Respiratory Rate Blood Pressure Pulse Oximetry 95 Oxygen Delivery Method Room Air Oxygen Flow Rate Oxygen Delivery Method Room Air Oxygen Flow Rate 0 Narrative Exam Narrative: GEN: no acute distress EXT: R great toe with black ulcer on lateral, distal aspect with surrounding s welling and erythema, left great toe with ulcer with minimal erythema Objective Labs Result Diagrams: 08/05/22 05:37 08/05/22 05:37 Labs: Laboratory Results - last 24 hr 08/05/22 08/05/22 05:37 05:37 WBC 5.6 RBC 3.76 L Hgb 11.1 L Hct 32.2 L MCV 85.7 MCH 29.4 MCHC 34.3 RDW 14.4 Plt Count 143 L Sodium 141 Potassium 3.8 Chloride 101 Carbon Dioxide 31 BUN 14 Creatinine 0.92 Estimated GFR > 60 BUN/Creatinine Ratio 15.2 Glucose 108 Calcium 8.9 [facility] Medical History (Updated 08/03/22 @ 09:53 by Stacie Uribe MD) Adiposa dolorosa Dinh's palsy Chronic migraine Chronic pain Depression Depression with anxiety Dercum disease Diabetes GERD (gastroesophageal reflux disease) Headache Hypertension Neuropathy Opiate dependence, continuous Restless leg syndrome Surgical History (Updated 08/02/22 @ 22:04 by DEBRA Driver) History of cholecystectomy History of hysterectomy Family History Mother Hypertension Renal failure Father Renal failure Congestive heart failure Social History household members: spouse Smoking Status: Former smoker alcohol intake: never substance use type: does not use Discharge Plan Discharge Plan Patient Disposition: Home Provider Discharge Comment: Patient has been Initiated on home cefazolin dose of 2 g IV every 8 hours starting at 3:00 p.m. on August 06, 2022 and this should continue until September 15, 2022 at midnight. Infusion team will visit the patient at her home at 10:00 a.m. on August 06, 2022 to set this up. Discharge orders & Medications Prescriptions: Continued ondansetron 4 mg tablet,disintegrating 4 mg PO BID-TID PRN (Reason: nausea and vomiting) Qty: 10 0RF metformin 500 mg Tablet 500 mg PO DAILY latanoprost 0.005 % Drops 1 drp ophthalmic (eye) DAILY citalopram 40 mg Tablet 40 mg PO DAILY clonidine HCl 0.3 mg tablet 0.3 mg PO BID losartan-hydrochlorothiazide 100-25 mg tablet 1 tab PO DAILY meclizine 25 mg Tablet 25 mg PO DAILY PRN (Reason: Vertigo) Label Comments: patient states from a long time ago when had vertigo. wants left on profile omeprazole 20 mg Capsule,Delayed Release(Dr/Ec) 20 mg PO Q12H albuterol sulfate 90 mcg/actuation Hfa Aerosol Inhaler 2 puff INHALATION Q4H PRN (Reason: Shortness Of Breath) morphine 15 mg Tablet 15 mg PO Q8H PRN (Reason: pain) diazepam 5 mg tablet 5 mg PO BID PRN (Reason: Anxiety) Label Comments: take 1 tablet by mouth twice a day if needed metoclopramide HCl 10 mg Tablet 10 mg PO DAILY PRN (Reason: Nausea) Label Comments: patient states probably . wants left on profile magnesium 200 mg Tablet 200 mg PO DAILY Rx Instructions: with meal triamcinolone acetonide 0.05 % Ointment 1 applic topical BID Simbrinza 1-0.2 % Drops,Suspension 1 drp ophthalmic (eye) BID Rx Instructions: into affected eye Ocuvite 1 tab PO DAILY ropinirole 0.5 mg tablet 0.5 mg PO BEDTIME Label Comments: take 1 tablet by mouth 1 TO 3 HOURS BEFORE BEDTIME prednisone 10 mg tablet See Rx Instructions .ROUTE .COMPLEX Qty: 30 0RF Rx Instructions: Day 1,2,3: 40mg PO Daily Day 4,5,6: 30mg PO Daily Day 7,8,9: 20mg PO Daily Day 10,11,12: 10mg PO Daily #30 Follow up/Referrals: Waldemar Simpson MD [Primary Care Provider] - Diet/Activity/Treatments Diet: Carb-consistent/Diabetic Discharge Data Primary Care Provider: Waldemar Simpson Quality VTE Deep Vein Thrombosis/Pulmonary Embolism Present on Admission: Yes
== END 2022-08-05 19:00 | disposition home or self-care (01) | DRG 264 ==
LOC: ED 19:21 → AC 20:04
PROVIDERS: Emergency Medicine; Internal Medicine; Nurse Practitioner Family; Admitting Provider Family Medicine; Emergency Provider Physician Assistant; PCP Internal Medicine; Referring Provider Physician Assistant; Visit Provider Family Medicine
DX: E11.52 Type 2 diabetes mellitus with diabetic peripheral angiopathy with gangrene (principal); F11.20 Opioid dependence, uncomplicated; M86.071 Acute hematogenous osteomyelitis, right ankle and foot; E11.69 Type 2 diabetes mellitus with other specified complication; G89.29 Other chronic pain; E11.42 Type 2 diabetes mellitus with diabetic polyneuropathy; B95.61 Methicillin susceptible Staphylococcus aureus infection as the cause of diseases classified elsewhere; E88.2 Lipomatosis, not elsewhere classified; I10 Essential (primary) hypertension; F32.A Depression, unspecified; F41.9 Anxiety disorder, unspecified; K21.9 Gastro-esophageal reflux disease without esophagitis; G25.81 Restless legs syndrome; Z20.822 Contact with and (suspected) exposure to COVID-19; Z87.891 Personal history of nicotine dependence; Z79.84 Long term (current) use of oral hypoglycemic drugs
CPT/HCPCS: 36415; 36592; 71045; 73630; 73720; 80048; 80053; 81001; 82962; 83036; 83605; 83735; 84145; 85025; 85027; 85610; 85651; 86140; 87040; 87070; 87075; 87077; 87147; 87186; 87205; 87635; 87797; 93925; 96365; 96367; 99284; C9803; J0690; J0696; J1335; J1650; J1815; J2270; J2543

== ENCOUNTER → 2022-08-12 11:28 | Outpatient (CLI) | payer OTHER, SELFPAY ==
[2022-08-02 22:02] VITALS: BMI 34.2
== END ==
PROVIDERS: Family Provider Internal Medicine; PCP Internal Medicine; Referring Provider Internal Medicine; Visit Provider Family Medicine
DX: E11.621 Type 2 diabetes mellitus with foot ulcer (principal); L97.514 Non-pressure chronic ulcer of other part of right foot with necrosis of bone; L97.522 Non-pressure chronic ulcer of other part of left foot with fat layer exposed; M86.171 Other acute osteomyelitis, right ankle and foot; B95.61 Methicillin susceptible Staphylococcus aureus infection as the cause of diseases classified elsewhere; Z79.2 Long term (current) use of antibiotics; R60.0 Localized edema; L53.9 Erythematous condition, unspecified; E11.51 Type 2 diabetes mellitus with diabetic peripheral angiopathy without gangrene; E11.42 Type 2 diabetes mellitus with diabetic polyneuropathy
CPT/HCPCS: 11042; 11044; 87070; 87075; 87176; 87205; 99204; 99214

== ENCOUNTER → 2022-08-19 08:43 | Outpatient (CLI) | payer OTHER, SELFPAY ==
[2022-08-02 22:02] VITALS: BMI 34.2
== END ==
PROVIDERS: Family Provider Internal Medicine; PCP Internal Medicine; Referring Provider Internal Medicine; Visit Provider Family Medicine
DX: E11.621 Type 2 diabetes mellitus with foot ulcer (principal); L97.514 Non-pressure chronic ulcer of other part of right foot with necrosis of bone; L97.522 Non-pressure chronic ulcer of other part of left foot with fat layer exposed; E11.52 Type 2 diabetes mellitus with diabetic peripheral angiopathy with gangrene; E11.42 Type 2 diabetes mellitus with diabetic polyneuropathy; M86.171 Other acute osteomyelitis, right ankle and foot; B95.61 Methicillin susceptible Staphylococcus aureus infection as the cause of diseases classified elsewhere; Z79.2 Long term (current) use of antibiotics; R60.0 Localized edema; L53.9 Erythematous condition, unspecified
CPT/HCPCS: 87070; 87075; 87205; 97597; 99214

== ENCOUNTER → 2022-08-26 08:43 | Outpatient (CLI) | payer OTHER, SELFPAY ==
[2022-08-02 22:02] VITALS: BMI 34.2
== END ==
PROVIDERS: Family Provider Internal Medicine; PCP Internal Medicine; Referring Provider Internal Medicine; Visit Provider Family Medicine
DX: E11.621 Type 2 diabetes mellitus with foot ulcer (principal); L97.514 Non-pressure chronic ulcer of other part of right foot with necrosis of bone; L97.522 Non-pressure chronic ulcer of other part of left foot with fat layer exposed; E11.40 Type 2 diabetes mellitus with diabetic neuropathy, unspecified; E11.52 Type 2 diabetes mellitus with diabetic peripheral angiopathy with gangrene; R60.0 Localized edema; M86.171 Other acute osteomyelitis, right ankle and foot; B95.61 Methicillin susceptible Staphylococcus aureus infection as the cause of diseases classified elsewhere; Z79.2 Long term (current) use of antibiotics
CPT/HCPCS: 11042; 80053; 85025; 86140; 99214

== ENCOUNTER → 2022-08-26 17:03 | Outpatient (ROUT) | payer OTHER, SELFPAY ==
[2022-08-02 22:02] VITALS: BMI 34.2
[2022-08-26 17:24] LABS: Add Manual Diff / Slide Review NO; Basophils Absolute Auto 100 /uL (0-100); Basophils Percent Auto 1.1 % (0-2); Eosinophils Absolute Auto 200 /uL (0-450); Eosinophils Percent Auto 2.8 % (2-4); Hematocrit 37.5 % (36-46); Hemoglobin 12.4 g/dL (12.0-16.0); Lymphocytes Absolute Auto 1800 /uL (1100-4500); Lymphocytes Percent Auto 27.2 % (25-40); Mean Corpuscular HGB Conc 33.1 % (30-36); Mean Corpuscular Hemoglobin 28.3 PG (26-34); Mean Corpuscular Volume 85.7 fL (80-100); Monocytes Absolute Auto 300 /uL (0-900); Monocytes Percent Auto 5.3 % (3-14); Neutrophils Absolute Auto 4200 /uL (1500-7000); Neutrophils Percent Auto 63.6 % (50-75); Platelet Count 53 X10^3/uL (150-400); Red Blood Cell Count 4.38 X10^6/uL (4.0-5.2); White Blood Cell Count 6.6 X10^3/uL (4.5-11.0)
[2022-08-26 18:06] LABS: Alanine Aminotransferase 12 IU/L (<35); Albumin Globulin Ratio 1.4 (1.0-2.8); Alkaline Phosphatase 69 U/L (38-126); Aspartate Aminotransferase 20 IU/L (14-36); Bilirubin Total 0.4 mg/dL (0.2-1.3); Blood Urea Nitrogen 17 mg/dL (7-17); Calcium 9.3 mg/dL (8.4-10.2); Carbon Dioxide 29 mmol/L (22-32); Chloride 100 mmol/L (98-107); Estimated Glomerular Filt Rate > 60 mL/min (>60); Globulin 2.9 g/dL (1.7-4.1); Glucose 145 mg/dL (80-110); HEMOLYSIS 17 (0-50); Potassium 4.1 mmol/L (3.4-5.1); Sodium 140 mmol/L (137-145); Total Protein 6.9 g/dL (6.3-8.2)
== END ==
PROVIDERS: Family Provider Internal Medicine; PCP Internal Medicine; Visit Provider Orthopaedic Surgery Foot and Ankle Surgery
DX: M86.9 Osteomyelitis, unspecified (principal)
CPT/HCPCS: 80053; 85025; 86140

== ENCOUNTER → 2022-09-02 08:46 | Outpatient (CLI) | payer OTHER, SELFPAY ==
[2022-08-02 22:02] VITALS: BMI 34.2
== END ==
PROVIDERS: Family Provider Internal Medicine; PCP Internal Medicine; Referring Provider Internal Medicine; Visit Provider Family Medicine
DX: M86.9 Osteomyelitis, unspecified (principal); E11.621 Type 2 diabetes mellitus with foot ulcer; L97.514 Non-pressure chronic ulcer of other part of right foot with necrosis of bone; L97.522 Non-pressure chronic ulcer of other part of left foot with fat layer exposed; M86.171 Other acute osteomyelitis, right ankle and foot; E11.42 Type 2 diabetes mellitus with diabetic polyneuropathy; Z79.2 Long term (current) use of antibiotics
CPT/HCPCS: 80053; 85025; 86140; 99212

== ENCOUNTER → 2022-09-02 11:28 | Outpatient (ROUT) | payer OTHER, SELFPAY ==
[2022-08-02 22:02] VITALS: BMI 34.2
[2022-09-02 11:37] LABS: Add Manual Diff / Slide Review NO; Basophils Absolute Auto 100 /uL (0-100); Basophils Percent Auto 1.1 % (0-2); Eosinophils Absolute Auto 200 /uL (0-450); Hematocrit 37.6 % (36-46); Hemoglobin 12.5 g/dL (12.0-16.0); Lymphocytes Absolute Auto 1100 /uL (1100-4500); Lymphocytes Percent Auto 21.4 % (25-40); Mean Corpuscular HGB Conc 33.2 % (30-36); Mean Corpuscular Hemoglobin 28.3 PG (26-34); Mean Corpuscular Volume 85.2 fL (80-100); Monocytes Absolute Auto 300 /uL (0-900); Monocytes Percent Auto 5.6 % (3-14); Neutrophils Absolute Auto 3600 /uL (1500-7000); Neutrophils Percent Auto 68.9 % (50-75); Platelet Count 122 X10^3/uL (150-400); Red Blood Cell Count 4.41 X10^6/uL (4.0-5.2); Red Cell Distribution Width 14.6 % (11.6-14.8); White Blood Cell Count 5.2 X10^3/uL (4.5-11.0)
[2022-09-02 11:47] LABS: Alanine Aminotransferase 18 IU/L (<35); Albumin 4.1 g/dL (3.5-5.0); Albumin Globulin Ratio 1.4 (1.0-2.8); Alkaline Phosphatase 63 U/L (38-126); Aspartate Aminotransferase 52 IU/L (14-36); BUN Creatinine Ratio 18.3 (6-22); Bilirubin Total 0.8 mg/dL (0.2-1.3); Blood Urea Nitrogen 11 mg/dL (7-17); C-Reactive Protein Quant < 0.5 mg/dL (<1.0); Calcium 8.9 mg/dL (8.4-10.2); Carbon Dioxide 28 mmol/L (22-32); Chloride 101 mmol/L (98-107); Estimated Glomerular Filt Rate > 60 mL/min (>60); Globulin 2.9 g/dL (1.7-4.1); Glucose 105 mg/dL (80-110); HEMOLYSIS 29 (0-50); Potassium 3.8 mmol/L (3.4-5.1); Sodium 139 mmol/L (137-145)
== END ==
PROVIDERS: Family Provider Internal Medicine; PCP Internal Medicine; Visit Provider Orthopaedic Surgery Foot and Ankle Surgery
DX: M86.9 Osteomyelitis, unspecified (principal)
CPT/HCPCS: 80053; 85025; 86140

== ENCOUNTER → 2022-09-08 10:06 | Outpatient (CLI) | payer OTHER, SELFPAY ==
[2022-08-02 22:02] VITALS: BMI 34.2
== END ==
PROVIDERS: Family Provider Internal Medicine; PCP Internal Medicine; Referring Provider Internal Medicine; Visit Provider Family Medicine
DX: E11.621 Type 2 diabetes mellitus with foot ulcer (principal); L97.514 Non-pressure chronic ulcer of other part of right foot with necrosis of bone; M86.171 Other acute osteomyelitis, right ankle and foot; E11.52 Type 2 diabetes mellitus with diabetic peripheral angiopathy with gangrene; B95.61 Methicillin susceptible Staphylococcus aureus infection as the cause of diseases classified elsewhere; Z79.2 Long term (current) use of antibiotics; E11.40 Type 2 diabetes mellitus with diabetic neuropathy, unspecified
CPT/HCPCS: 99213; 99214

== ENCOUNTER → 2022-09-09 12:16 | Outpatient (ROUT) | payer OTHER, SELFPAY ==
[2022-08-02 22:02] VITALS: BMI 34.2
[2022-09-09 12:52] LABS: Basophils Absolute Auto 100 /uL (0-100); Basophils Percent Auto 1.1 % (0-2); Eosinophils Absolute Auto 200 /uL (0-450); Eosinophils Percent Auto 3.2 % (2-4); Hematocrit 39.7 % (36-46); Hemoglobin 13.4 g/dL (12.0-16.0); Lymphocytes Absolute Auto 1900 /uL (1100-4500); Mean Corpuscular HGB Conc 33.7 % (30-36); Mean Corpuscular Hemoglobin 28.4 PG (26-34); Mean Corpuscular Volume 84.3 fL (80-100); Monocytes Absolute Auto 400 /uL (0-900); Monocytes Percent Auto 5.4 % (3-14); Neutrophils Absolute Auto 4000 /uL (1500-7000); Neutrophils Percent Auto 61.3 % (50-75); Platelet Count 82 X10^3/uL (150-400); Red Blood Cell Count 4.71 X10^6/uL (4.0-5.2); White Blood Cell Count 6.6 X10^3/uL (4.5-11.0)
[2022-09-09 12:55] LABS: Add Manual Diff / Slide Review SLIDE REVIEW
[2022-09-09 13:14] LABS: Alanine Aminotransferase 10 IU/L (<35); Albumin 4.2 g/dL (3.5-5.0); Albumin Globulin Ratio 1.4 (1.0-2.8); Alkaline Phosphatase 81 U/L (38-126); Aspartate Aminotransferase 20 IU/L (14-36); BUN Creatinine Ratio 32.1 (6-22); Bilirubin Total 0.4 mg/dL (0.2-1.3); Blood Urea Nitrogen 17 mg/dL (7-17); C-Reactive Protein Quant < 0.5 mg/dL (<1.0); Calcium 9.8 mg/dL (8.4-10.2); Carbon Dioxide 29 mmol/L (22-32); Chloride 102 mmol/L (98-107); Estimated Glomerular Filt Rate > 60 mL/min (>60); Glucose 103 mg/dL (80-110); HEMOLYSIS 30 (0-50); Potassium 3.9 mmol/L (3.4-5.1); Sodium 141 mmol/L (137-145); Total Protein 7.2 g/dL (6.3-8.2)
[2022-09-09 13:31] LABS: RBC Morphology Normal Morphology
[2022-09-09 13:33] LABS: Platelet Estimate Adequate on smear
== END ==
PROVIDERS: Family Provider Internal Medicine; PCP Internal Medicine; Visit Provider Orthopaedic Surgery Foot and Ankle Surgery
DX: M86.9 Osteomyelitis, unspecified (principal)
CPT/HCPCS: 80053; 85025; 86140

== ENCOUNTER → 2022-09-15 13:35 | Outpatient (CLI) | payer OTHER, SELFPAY ==
[2022-08-02 22:02] VITALS: BMI 34.2
== END ==
PROVIDERS: Family Provider Internal Medicine; PCP Internal Medicine; Referring Provider Orthopaedic Surgery Foot and Ankle Surgery; Visit Provider Family Medicine
DX: E11.621 Type 2 diabetes mellitus with foot ulcer (principal); L97.514 Non-pressure chronic ulcer of other part of right foot with necrosis of bone; E11.52 Type 2 diabetes mellitus with diabetic peripheral angiopathy with gangrene; E11.42 Type 2 diabetes mellitus with diabetic polyneuropathy; R60.0 Localized edema; Z49.01 Encounter for fitting and adjustment of extracorporeal dialysis catheter
CPT/HCPCS: 97597

== ENCOUNTER → 2022-09-22 15:08 | Outpatient (CLI) | payer OTHER, SELFPAY ==
[2022-08-02 22:02] VITALS: BMI 34.2
== END ==
PROVIDERS: Family Provider Internal Medicine; PCP Internal Medicine; Referring Provider Internal Medicine; Visit Provider Surgery
DX: L97.514 Non-pressure chronic ulcer of other part of right foot with necrosis of bone (principal); E11.52 Type 2 diabetes mellitus with diabetic peripheral angiopathy with gangrene; E11.621 Type 2 diabetes mellitus with foot ulcer; E11.42 Type 2 diabetes mellitus with diabetic polyneuropathy; R60.0 Localized edema
CPT/HCPCS: 97597

== ENCOUNTER → 2022-10-06 13:34 | Outpatient (CLI) | payer OTHER, SELFPAY ==
[2022-08-02 22:02] VITALS: BMI 34.2
== END ==
PROVIDERS: Family Provider Internal Medicine; PCP Internal Medicine; Referring Provider Internal Medicine; Visit Provider Surgery
DX: E11.621 Type 2 diabetes mellitus with foot ulcer (principal); L97.514 Non-pressure chronic ulcer of other part of right foot with necrosis of bone; R60.0 Localized edema; L53.9 Erythematous condition, unspecified; E11.51 Type 2 diabetes mellitus with diabetic peripheral angiopathy without gangrene; E11.40 Type 2 diabetes mellitus with diabetic neuropathy, unspecified; M79.671 Pain in right foot
CPT/HCPCS: 11042; 87070; 87075; 87077; 87147; 87186; 87205; 99213

== ENCOUNTER → 2022-10-21 13:27 | Outpatient (CLI) | payer OTHER, SELFPAY ==
[2022-08-02 22:02] VITALS: BMI 34.2
== END ==
PROVIDERS: Family Provider Internal Medicine; PCP Internal Medicine; Referring Provider Internal Medicine; Visit Provider Surgery
DX: E11.621 Type 2 diabetes mellitus with foot ulcer (principal); L97.514 Non-pressure chronic ulcer of other part of right foot with necrosis of bone; E11.52 Type 2 diabetes mellitus with diabetic peripheral angiopathy with gangrene; R60.0 Localized edema; E11.40 Type 2 diabetes mellitus with diabetic neuropathy, unspecified
CPT/HCPCS: 11042; 99213

== ENCOUNTER → 2022-10-27 13:26 | Outpatient (CLI) | payer OTHER, SELFPAY ==
[2022-08-02 22:02] VITALS: BMI 34.2
== END ==
PROVIDERS: Family Provider Internal Medicine; PCP Internal Medicine; Referring Provider Internal Medicine; Visit Provider Surgery
DX: E11.621 Type 2 diabetes mellitus with foot ulcer (principal); L97.514 Non-pressure chronic ulcer of other part of right foot with necrosis of bone; E11.42 Type 2 diabetes mellitus with diabetic polyneuropathy; E11.51 Type 2 diabetes mellitus with diabetic peripheral angiopathy without gangrene; R60.0 Localized edema; L84 Corns and callosities
CPT/HCPCS: 99213

== ENCOUNTER → 2022-12-04 14:57 | Outpatient (ROUT) | payer OTHER, SELFPAY ==
[2022-08-02 22:02] VITALS: BMI 34.2
[2022-12-04 15:27] LABS: Add Manual Diff / Slide Review NO; Basophils Absolute Auto 100 /uL (0-100); Basophils Percent Auto 0.7 % (0-2); Eosinophils Absolute Auto 300 /uL (0-450); Eosinophils Percent Auto 4.3 % (2-4); Hematocrit 29.7 % (36-46); Hemoglobin 10.2 g/dL (12.0-16.0); Lymphocytes Absolute Auto 1700 /uL (1100-4500); Mean Corpuscular HGB Conc 34.3 % (30-36); Mean Corpuscular Volume 81.7 fL (80-100); Monocytes Absolute Auto 500 /uL (0-900); Monocytes Percent Auto 6.8 % (3-14); Neutrophils Absolute Auto 4500 /uL (1500-7000); Neutrophils Percent Auto 64.2 % (50-75); Platelet Count 125 X10^3/uL (150-400); Red Blood Cell Count 3.63 X10^6/uL (4.0-5.2); Red Cell Distribution Width 14.7 % (11.6-14.8); White Blood Cell Count 7.1 X10^3/uL (4.5-11.0)
[2022-12-04 15:45] LABS: Erythrocyte Sedimentation Rate 36 MM/HR (0-20)
[2022-12-04 15:49] LABS: Alanine Aminotransferase 12 IU/L (<35); Albumin 2.9 g/dL (3.5-5.0); Albumin Globulin Ratio 1.2 (1.0-2.8); Alkaline Phosphatase 85 U/L (38-126); Aspartate Aminotransferase 17 IU/L (14-36); BUN Creatinine Ratio 21.3 (6-22); Bilirubin Total 0.5 mg/dL (0.2-1.3); Blood Urea Nitrogen 13 mg/dL (7-17); C-Reactive Protein Quant 1.9 mg/dL (<1.0); Calcium 8.8 mg/dL (8.4-10.2); Carbon Dioxide 29 mmol/L (22-32); Chloride 99 mmol/L (98-107); Estimated Glomerular Filt Rate > 60 mL/min (>60); Globulin 2.5 g/dL (1.7-4.1); Glucose 146 mg/dL (80-110); HEMOLYSIS < 15 (0-50); Potassium 2.9 mmol/L (3.4-5.1); Sodium 139 mmol/L (137-145); Total Protein 5.4 g/dL (6.3-8.2)
[2022-12-04 16:02] LABS: Vitamin D 25 Hydroxy (D3) 41.9 ng/mL (30.0-100.0)
[2022-12-04 16:24] LABS: Vitamin B12 794 pg/mL (239-931)
== END ==
PROVIDERS: Family Provider Internal Medicine; PCP Internal Medicine; Visit Provider Internal Medicine
DX: M62.81 Muscle weakness (generalized) (principal)
CPT/HCPCS: 80053; 82306; 82607; 84443; 85025; 85651; 86140

== ENCOUNTER → 2024-03-28 16:49 | Outpatient (CLI) | payer MEDICARE, SELFPAY ==
[2024-03-18 12:09] VITALS: BMI 34.2
--- NOTE | 2024-03-28 16:50 | DI.MG.S_ITS ---
BILATERAL DIGITAL SCREENING MAMMOGRAM 3D/2D WITH CAD: 03/29/2024 CLINICAL: Routine screening. Family history of breast cancer. Comparison is made to exams dated: 03/24/2022 mammogram, 03/01/2019 mammogram, and 10/01/2017 mammogram - [facility]. Both breasts are heterogeneously dense, which may obscure small masses (category c / 51-75% glandular tissue). Current study was also evaluated with a Computer Aided Detection (CAD) system. No significant masses, calcifications, or other findings are seen in either breast. There has been no significant interval change. IMPRESSION: NEGATIVE There is no mammographic evidence of malignancy. A 1 year screening mammogram is recommended. Based on the Tyrer Cuzick model (a risk assessment model) the patient's lifetime risk is 14.0% and her 10 year risk is 7.9%. According to the ACR, ACS, and NCCN guidelines, an annual breast MRI exam along with mammogram is recommended if the patient's lifetime risk is 20% or greater. This exam was interpreted at Station ID: [id number]. NOTE: For mammograms, a report in lay terms will be sent to the patient. Approximately 15% of breast malignancies will not be visualized mammographically. In the management of a palpable breast mass, a negative mammogram must not discourage biopsy of a clinically suspicious lesion. Electronically Signed By: New varela/pipo:04/01/2024 09:33:34 letter sent: Normal Exam ACR BI-RADS Category 1: Negative 3341F
== END ==
PROVIDERS: Family Provider Internal Medicine; PCP Internal Medicine; Referring Provider Internal Medicine; Visit Provider Internal Medicine
DX: Z12.31 Encounter for screening mammogram for malignant neoplasm of breast (principal); Z80.3 Family history of malignant neoplasm of breast; R92.333 Mammographic heterogeneous density, bilateral breasts
CPT/HCPCS: 77063; 77067

== ENCOUNTER 2024-08-01 16:49 | Emergency (ER) | payer MEDICARE, SELFPAY ==
[2024-03-18 12:09] VITALS: BMI 34.2
[2024-08-01] VITALS (17 sets, daily range): BP systolic 209–240; BP diastolic 94–119; PULSE 67–89; RESP 11–23; TEMP 37.1; O2SAT 96–100; BMI 32.1
--- NOTE | 2024-08-01 17:05 | EKG_ITS ---
Located Within [facility] [address] [place] [address] Test Date: 2024-08-01 Pat Name: Arely Chauhan Department: Located [facility] Room: Gender: Female High Reach Operator: : 1955 Requested By: Order Number: [id number] Reading MD: Jamal Torres Measurements Intervals [place] Rate: 71 P: 70 HI: 162 QRS: 20 QRSD: 70 T: 40 QT: 430 QTc: 467 Interpretive Statements Normal sinus rhythm Nonspecific ST and T wave abnormality Electronically Signed On 08-03-2024 18:05:35 PDT by Jamal Torres
[2024-08-01] MEDS: ONDANSETRON 4 MG/2 ML INJ IV ×2 (17:20→20:27)
[2024-08-01 17:31] LABS: INR 1.2 (0.9-1.3); Prothrombin Time 13.2 SECONDS (9.4-12.5)
[2024-08-01 17:32] LABS: Add Manual Diff / Slide Review NO; Basophils Absolute Auto 100 /uL (0-100); Basophils Percent Auto 0.8 % (0-2); Eosinophils Absolute Auto 100 /uL (0-450); Eosinophils Percent Auto 1.6 % (2-4); Hematocrit 39.3 % (36-46); Hemoglobin 13.7 g/dL (12.0-16.0); Lymphocytes Absolute Auto 1400 /uL (1100-4500); Lymphocytes Percent Auto 18.2 % (25-40); Mean Corpuscular HGB Conc 34.7 % (30-36); Mean Corpuscular Hemoglobin 29.8 PG (26-34); Mean Corpuscular Volume 85.7 fL (80-100); Monocytes Absolute Auto 500 /uL (0-900); Monocytes Percent Auto 6.2 % (3-14); Neutrophils Absolute Auto 5600 /uL (1500-7000); Neutrophils Percent Auto 73.2 % (50-75); Platelet Count 151 X10^3/uL (150-400); Red Blood Cell Count 4.59 X10^6/uL (4.0-5.2); Red Cell Distribution Width 14.2 % (11.6-14.8); White Blood Cell Count 7.6 X10^3/uL (4.5-11.0)
[2024-08-01 17:35] LABS: Alanine Aminotransferase 22 IU/L (<35); Albumin 4.6 g/dL (3.5-5.0); Albumin Globulin Ratio 1.7 (1.0-2.8); Alkaline Phosphatase 85 U/L (38-126); Aspartate Aminotransferase 34 IU/L (14-36); BUN Creatinine Ratio 20.4 (6-22); Bilirubin Total 2.5 mg/dL (0.2-1.3); Blood Urea Nitrogen 23 mg/dL (7-17); Carbon Dioxide 19 mmol/L (22-32); Chloride 99 mmol/L (98-107); Estimated Glomerular Filt Rate 53 mL/min (>60); Globulin 2.7 g/dL (1.7-4.1); Glucose 93 mg/dL (80-110); HEMOLYSIS < 15 (0-50); Lipase 252 U/L (23-300); Potassium 3.1 mmol/L (3.4-5.1); Sodium 136 mmol/L (137-145); Total Protein 7.3 g/dL (6.3-8.2)
--- NOTE | 2024-08-01 18:55 | ED.ABDPAIN ---
HPI - Abdominal Pain General Chief Complaint: Abdominal Pain Stated Complaint: sick for three weeks Time Seen by Provider: 08/01/24 18:49 Source: patient Mode of arrival: Wheelchair History of Present Illness HPI narrative: Patient is a 68-year-old with some memory impairment hypertension chronic pain on morphine extended relief for decades presenting today with nausea vomiting and abdominal pain. She reports that for about the last 2 weeks she has had some intermittent abdominal pain she is vomited every day. Has a difficult time keeping anything down. She is able to keep some brought down sometimes some soup down sometimes but both she and her report that she throws most things up. They have been trying very hard to at least keep some of her morphine in her so she does not go through withdrawal. They have been keeping some immediate release morphine in her. She thinks that she might have COVID but she has not really sure why. She is able to give some history but relies on for other history. She is noted to be quite hypertensive but has been unable to keep down her blood pressure medication. Related Data Home Medications Medication Instructions Recorded Confirmed Ocuvite 1 tab PO DAILY 12/29/18 12/29/18 albuterol sulfate 90 mcg/actuation 2 puff inhalation Q4H PRN 12/29/18 12/29/18 aerosol inhaler Shortness Of Breath brinzolamide 1 %-brimonidine 0.2 % 1 drp ophthalmic (eye) BID 12/29/18 12/29/18 eye drops,suspension (Simbrinza) citalopram 40 mg tablet 40 mg PO DAILY 12/29/18 12/29/18 clonidine HCl 0.3 mg tablet 0.3 mg PO BID 12/29/18 12/29/18 diazepam 5 mg tablet 5 mg PO BID PRN Anxiety 12/29/18 12/29/18 latanoprost 0.005 % eye drops 1 drp ophthalmic (eye) DAILY 12/29/18 12/29/18 losartan 100 1 tab PO DAILY 12/29/18 12/29/18 mg-hydrochlorothiazide 25 mg tablet magnesium 200 mg tablet 200 mg PO DAILY 12/29/18 12/29/18 meclizine 25 mg tablet 25 mg PO DAILY PRN Vertigo 12/29/18 12/29/18 metformin 500 mg tablet 500 mg PO DAILY 12/29/18 12/29/18 metoclopramide HCl 10 mg tablet 10 mg PO DAILY PRN Nausea 12/29/18 12/29/18 morphine 15 mg immediate release 15 mg PO Q8H PRN pain 12/29/18 12/29/18 tablet omeprazole 20 mg capsule,delayed 20 mg PO Q12H 12/29/18 12/29/18 release ropinirole 0.5 mg tablet 0.5 mg PO BEDTIME 12/29/18 12/29/18 triamcinolone acetonide 0.05 % 1 applic topical BID 12/29/18 12/29/18 topical ointment Previous Rx's Medication Instructions Recorded ondansetron 4 mg disintegrating 4 mg PO BID-TID PRN nausea and 12/25/18 tablet vomiting #10 tabs prednisone 10 mg tablet See Rx Instructions .Route 03/27/21 .COMPLEX #30 tabs cephalexin 500 mg capsule 500 mg PO BID 7 days #14 caps 08/01/24 ondansetron 4 mg disintegrating 4 mg PO Q8H PRN nausea and 08/01/24 tablet vomiting #10 tabs Allergies Allergy/AdvReac Type Severity Reaction Status Date / Time Beta-Blockers Allergy Unknown Verified 08/01/24 17:04 (Beta-Adrenergic Bloc Corticosteroids Allergy Unknown Verified 08/01/24 17:04 (Glucocorticoids) neomycin Allergy Unknown Verified 08/01/24 17:04 NSAIDS (Non-Steroidal Allergy Verified 08/01/24 17:04 Anti-Inflamma zolpidem AdvReac Intermediate CONFUSION/A Verified 08/01/24 17:04 MNESIA Patient History Medical History Neuropathy Dercum disease Opiate dependence, continuous Restless leg syndrome GERD (gastroesophageal reflux disease) Depression with anxiety Chronic pain Chronic migraine Adiposa dolorosa Depression Diabetes Hypertension Dinh's palsy Headache Surgical History History of cholecystectomy History of hysterectomy Family History Mother Hypertension Renal failure Father Renal failure Congestive heart failure Social History household members: spouse Smoking Status: Former smoker alcohol intake: never substance use type: does not use Smoking Status: Former smoker alcohol intake frequency: 0-2 drinks per day Substance Use Type: does not use Exam Initial Vital Signs Initial Vital Signs: Vital Signs Temperature 98.8 F 08/01/24 17:00 Pulse Rate 89 08/01/24 17:00 Respiratory Rate 18 08/01/24 17:00 Blood Pressure 212/95 H 08/01/24 17:00 Pulse Oximetry 96 08/01/24 17:00 Oxygen Delivery Method Room Air 08/01/24 17:00 GENERAL: Alert mildly confused pleasant 60-year-old female HEENT: Head atraumatic,EOMI, pupils reactive, face symmetric, dry mucous membranes CARDIOVASCULAR: Regular rate and rhythm without murmurs, rubs or gallops. RESPIRATORY: Breath sounds equal bilaterally, no wheezes rales or rhonchi. ABDOMEN: Soft, mild lower abdominal tenderness no guarding no rebound no significant epigastric pain EXTREMITIES: Normal range of motion, no clubbing or edema. Neurovascularly intact NEUROLOGICAL: Alert and oriented x4.Normal gait and speech. Cranial nerves II through XII grossly intact. SKIN: Warm, dry, no laceration, no petechiae, no rashes or lesions. Course Orders Ordered: ED Orders 08/01/24 18:41 Urine Culture Stat Urine Microscopic Stat 08/01/24 19:04 CT abdomen pelvis w con Stat 08/01/24 19:08 Covid-19 + FLU A/B + RSV - PCR Stat 08/01/24 19:15 EKG-12 Lead Stat Discontinued Medications Cephalexin HCl (Cephalexin 250 Mg Capsule) 500 mg PO NOW ONE Stop: 08/01/24 20:30 Last Admin: 08/01/24 20:40 Dose: 500 mg Documented By: LOVELY Sodium Chloride (Normal Saline 0.9%) 1,000 mls @ 1,000 mls/hr IV BOLUS ONE Stop: 08/01/24 20:03 Last Infusion: 08/01/24 20:34 Dose: Infused Documented By: Admin: 08/01/24 19:19 Dose: 1,000 mls/hr Documented By: LOVELY Losartan Potassium (Losartan 50 Mg Tablet) 100 mg PO NOW ONE Stop: 08/01/24 19:13 Last Admin: 08/01/24 19:43 Dose: 100 mg Documented By: LOVELY Morphine Sulfate (Morphine Er 15 Mg Tablet) 15 mg PO NOW ONE Stop: 08/01/24 20:30 Last Admin: 08/01/24 20:35 Dose: 15 mg Documented By: LOVELY Morphine Sulfate (Morphine 4 Mg/Ml Inj) 4 mg IV NOW ONE Stop: 08/01/24 20:54 Last Admin: 08/01/24 21:09 Dose: 4 mg Documented By: LOVELY Ondansetron HCl (Ondansetron 4 Mg/2 Ml Inj) 4 mg IV NOW PRN PRN Reason: Nausea And Vomiting Last Admin: 08/01/24 17:20 Dose: 4 mg Documented By: CLAIRE Ondansetron HCl (Ondansetron 4 Mg Odt) 4 mg PO NOW PRN PRN Reason: Nausea And Vomiting Ondansetron HCl (Ondansetron 4 Mg/2 Ml Inj) 4 mg IV NOW ONE Stop: 08/01/24 19:05 Last Admin: 08/01/24 20:27 Dose: 4 mg Documented By: LOVELY Ondansetron HCl (Ondansetron 4 Mg Odt Prepack) 1 bottle MISC SEEINSTR ONE Stop: 08/01/24 21:52 Ondansetron HCl (Ondansetron 4 Mg Odt Prepack) 1 bottle MISC DIRECTED ONE Stop: 08/01/24 21:56 Last Admin: 08/01/24 22:02 Dose: Not Given Documented By: JESSICA Vital Signs Vital signs: Vital Signs - 8 hr 08/01/24 18:59 08/01/24 19:00 08/01/24 19:06 Pulse Rate 86 82 79 Respiratory Rate 15 14 21 Blood Pressure Pulse Oximetry 96 08/01/24 19:06 08/01/24 19:43 08/01/24 19:46 Pulse Rate 72 73 Respiratory Rate 23 Blood Pressure 236/108 H 236/108 H Pulse Oximetry 98 08/01/24 19:47 08/01/24 19:47 08/01/24 20:00 Pulse Rate 77 75 Respiratory Rate 15 17 Blood Pressure 236/109 H Pulse Oximetry 98 98 08/01/24 20:01 08/01/24 20:01 08/01/24 20:03 Pulse Rate 74 71 Respiratory Rate 16 15 Blood Pressure 235/119 H Pulse Oximetry 97 98 08/01/24 20:03 08/01/24 20:30 08/01/24 20:31 Pulse Rate 71 71 Respiratory Rate 14 14 Blood Pressure 222/107 H Pulse Oximetry 100 99 08/01/24 20:31 08/01/24 21:00 08/01/24 21:01 Pulse Rate 69 69 Respiratory Rate 12 19 Blood Pressure 240/100 H Pulse Oximetry 98 96 08/01/24 21:01 08/01/24 21:30 08/01/24 21:31 Pulse Rate 67 Respiratory Rate 13 Blood Pressure 209/94 H 213/98 H Pulse Oximetry 97 08/01/24 21:31 08/01/24 21:36 08/01/24 21:36 Pulse Rate 70 71 Respiratory Rate 22 11 L Blood Pressure 225/100 H Pulse Oximetry 97 96 MDM - Abdominal Pain Lab Data 08/01/24 17:10 08/01/24 17:10 Labs: Lab Results 08/01/24 08/01/24 08/01/24 Range/Units 17:10 18:41 19:08 WBC 7.6 (4.5-11.0) X10^3/uL RBC 4.59 (4.0-5.2) X10^6/uL Hgb 13.7 (12.0-16.0) g/dL Hct 39.3 (36-46) % MCV 85.7 (80-100) fL MCH 29.8 (26-34) PG MCHC 34.7 (30-36) % RDW 14.2 (11.6-14.8) % Plt Count 151 (150-400) X10^3/uL Neut % (Auto) 73.2 (50-75) % Lymph % (Auto) 18.2 L (25-40) % [place] % (Auto) 6.2 (3-14) % Eos % (Auto) 1.6 L (2-4) % Baso % (Auto) 0.8 (0-2) % Neut # (Auto) 5600 (8183-5246) /uL Lymph # (Auto) 1400 (3630-8604) /uL [place] # (Auto) 500 (0-900) /uL Eos # (Auto) 100 (0-450) /uL Baso # (Auto) 100 (0-100) /uL PT 13.2 H (9.4-12.5) SECONDS INR 1.2 (0.9-1.3) Sodium 136 L (137-145) mmol/L Potassium 3.1 L (3.4-5.1) mmol/L Chloride 99 (98-107) mmol/L Carbon Dioxide 19 L (22-32) mmol/L BUN 23 H (7-17) mg/dL Creatinine 1.13 H (0.52-1.04) mg/dL Estimated GFR 53 L (>60) mL/min BUN/Creatinine Ratio 20.4 (6-22) Glucose 93 (80-110) mg/dL Lactate 1.0 (0.7-2.1) mmol/L Calcium 10.0 (8.4-10.2) mg/dL Total Bilirubin 2.5 H (0.2-1.3) mg/dL AST 34 (14-36) IU/L ALT 22 (<35) IU/L Alkaline Phosphatase 85 (38-126) U/L Total Creatine Kinase 31 (30-135) U/L Troponin I < 0.012 (0.01-0.034) ng/mL Total Protein 7.3 (6.3-8.2) g/dL Albumin 4.6 (3.5-5.0) g/dL Globulin 2.7 (1.7-4.1) g/dL Albumin/Globulin Ratio 1.7 (1.0-2.8) Lipase 252 (23-300) U/L Urine RBC 0-1/hpf (0-5/HPF) Urine WBC 1-5/hpf (0-5/HPF) Ur Squamous Epith Cells 0-1 /hpf (0-5/HPF) Urine Bacteria Few (2-10) H (None) Urine Mucus 2+ H (Negative) Vol Urine Centrifuged 10ml (spun) SARS-CoV-2 (PCR) Negative (Negative) Influenza A (RT-PCR) Flu a negative (NEGATIVE) Influenza B (RT-PCR) Flu b negative (NEGATIVE) RSV (PCR) Negative (Negative) Point of care testing: Urine Dip Bedside Urine Glucose Negative Bedside Urine Bilirubin - Negative Bedside Urine Ketone +++ 80 Urine Specific [place] 1.025 Bedside Urine Occult Blood - Negative Bedside Urine pH 5.5 Bedside Urine Protein + 30 Bedside Urine Urobilinogen - Negative Bedside Urine Nitrite - Negative Bedside Urine Leukocytes +/- [address] scan - abdomen/pelvis: Radiologist's Impression: PROCEDURE: CT ABDOMEN PELVIS W CON INDICATIONS: lower ab pain x 2 weeks TECHNIQUE: After the administration of intravenous contrast, axial sections acquired from the lung bases to the pubic symphysis. Coronal and sagittal reformats were performed. For radiation dose reduction, the following was used: automated exposure control, adjustment of mA and/or kV according to patient size. COMPARISON: [facility], CT, ABDOMEN/PELVIS WITHOUT CONTRAS, 03/17/2014, 6:54. FINDINGS: Image quality: Diagnostic. Lower Chest: No significant findings. ABDOMEN: Liver: No solid mass. Gallbladder: Removed. Biliary ducts: No biliary dilation. Pancreas: No ductal dilation. Spleen: Size is within normal limits. Adrenal Glands: No adrenal nodules. Kidneys and Ureters: No hydronephrosis. No solid mass. No complex renal cystic lesion which requires follow up. Stomach and Bowel: No obstruction. Diverticular present without inflammatory change. Mild appearance of nonspecific thickening at the rectosigmoid junction, series 2, image 126. No inflammatory change. Peritoneum: No abnormal intraperitoneal fluid. No free air. Ventral Wall: No significant ventral hernia. Abdominal Nodes: No retroperitoneal or mesenteric adenopathy by size criteria. Vessels: Aorta and inferior vena cava are normal in size. PELVIS: Pelvic Organs: Unremarkable. Bladder: No bladder wall thickening, accounting for underdistention. Pelvic Nodes: No enlarged lymph nodes. Miscellaneous: No inguinal hernias are seen. Bones: No aggressive osseous abnormality. IMPRESSION: Diverticulosis. No inflammatory change. Nonspecific thickening at the rectosigmoid junction without inflammation. While this could be secondary to incomplete distention, follow-up is recommended to exclude presence of underlying mass. Dictated by: Tiara Mitchell M.D. on 08/01/2024 at 19:51 ECG Data Attestation: I personally reviewed and interpreted this ECG as follows: Prior ECG tracings: available for review Interpretation: Normal sinus rhythm rate 77 CO interval 166 QRS [address] changes similar to prior EKGs MDM Narrative Medical decision making narrative: MDM CC: Abdominal pain confusion nausea vomiting Complicating co-morbidities: Chronic pain memory issue hypertension Data collected from: Has been Medical records reviewed: Previous admission in 2021 Differential considered: Infection, UTI diverticulitis appendicitis nephrolithiasis Exam documented above, pertinent findings include: Dry mucous membranes mildly tender lower abdominal exam no peritoneal signs no significant right upper quadrant lung sounds are clear Lab Test results independently reviewed as above. Pertinent findings: WBC 7.6 hemoglobin 13.7 hematocrit 393 platelets 151 CMP sodium 136 potassium low at 3.1 creatinine 1.13 previously 0.61 bilirubin 2.5 AST 34 ALT 22 Bacteria in her urine with some leukocytes negative nitrates Independently reviewed EKG as above Imaging studies independently reviewed: CT does not show any significant intra-abdominal pathology. Maybe some thickening of the rectosigmoid junction. Consultations: None Treatments: IV fluids Zofran, morphine p.o. and IV, p.o. Keflex Re-evaluations: Patient is feeling better but blood pressure is still very elevated. She is given her dose of losartan and IV morphine which does seem to help. Discussion: Patient is 68-year-old female presenting today with abdominal pain nausea vomiting ongoing for about 2 weeks. She is unable to keep anything down. She shows some mild dehydration with a creatinine of 1.1 previously 0.6 and some mild hypokalemia. She is some dry mucous membranes on exam as well. She has an elevated bilirubin of 2.5 with out heart upper quadrant. A normal liver enzymes. CT abdomen does not show any significant abnormality. She does have urinalysis consistent with UTI. sHe is persistently hypertensive here in the emergency department without any evidence of end-organ damage. She is given her dose of losartan. She has been unable to take her medications secondary to ongoing nausea vomiting which I think is attributed to her UTI. Recommend outpatient treatment at this time hopefully she can go home and take her medications with nausea medication. Discussed and patient when to return to ED. Discharge Plan Departure Patient Disposition: Home Clinical Impression: Acute UTI, DEJUAN (acute kidney injury), Acute hypokalemia Instructions: DI for Urinary Tract Infection (UTI) Activity Restrictions/Additional Instructions: *You have been diagnosed with UTI nausea vomiting *What to do: At this time increase fluids as tolerated recommend electrolyte fluids such as Pedialyte Gatorade *Continue to take medications as directed Zofran 4 mg every 8 hours if needed for nausea or vomiting Keflex 500 mg twice a day for 7 days *Follow up with your primary care provider in 2-3 days or call [phone] *Return to ER if you should have increasing confusion pain persistent vomiting or any new, worsening or concerning symptoms Prescriptions: New cephalexin 500 mg capsule 500 mg PO BID 7 Days Qty: 14 0RF ondansetron 4 mg tablet,disintegrating 4 mg PO Q8H PRN (Reason: nausea and vomiting) Qty: 10 0RF No Action ondansetron 4 mg tablet,disintegrating 4 mg PO BID-TID PRN (Reason: nausea and vomiting) Qty: 10 0RF metformin 500 mg Tablet 500 mg PO DAILY latanoprost 0.005 % Drops 1 drp ophthalmic (eye) DAILY citalopram 40 mg Tablet 40 mg PO DAILY clonidine HCl 0.3 mg tablet 0.3 mg PO BID losartan-hydrochlorothiazide 100-25 mg tablet 1 tab PO DAILY meclizine 25 mg Tablet 25 mg PO DAILY PRN (Reason: Vertigo) Patient Comments: patient states from a long time ago when had vertigo. wants left on profile omeprazole 20 mg Capsule,Delayed Release(Dr/Ec) 20 mg PO Q12H albuterol sulfate 90 mcg/actuation Hfa Aerosol Inhaler 2 puff INHALATION Q4H PRN (Reason: Shortness Of Breath) morphine 15 mg Tablet 15 mg PO Q8H PRN (Reason: pain) diazepam 5 mg tablet 5 mg PO BID PRN (Reason: Anxiety) Patient Comments: take 1 tablet by mouth twice a day if needed metoclopramide HCl 10 mg Tablet 10 mg PO DAILY PRN (Reason: Nausea) Patient Comments: patient states probably . wants left on profile magnesium 200 mg Tablet 200 mg PO DAILY Rx Instructions: with meal triamcinolone acetonide 0.05 % Ointment 1 applic topical BID Simbrinza 1-0.2 % Drops,Suspension 1 drp ophthalmic (eye) BID Rx Instructions: into affected eye Ocuvite 1 tab PO DAILY ropinirole 0.5 mg tablet 0.5 mg PO BEDTIME Patient Comments: take 1 tablet by mouth 1 TO 3 HOURS BEFORE BEDTIME prednisone 10 mg tablet See Rx Instructions .ROUTE .COMPLEX Qty: 30 0RF Rx Instructions: Day 1,2,3: 40mg PO Daily Day 4,5,6: 30mg PO Daily Day 7,8,9: 20mg PO Daily Day 10,11,12: 10mg PO Daily #30 Referrals: Waldemar Simpson MD [Primary Care Provider] - Stand Alone Forms: Patient Portal/API
--- NOTE | 2024-08-01 19:04 | DI.CT.S_ITS ---
PROCEDURE: CT ABDOMEN PELVIS W CON INDICATIONS: lower ab pain x 2 weeks TECHNIQUE: After the administration of intravenous contrast, axial sections acquired from the lung bases to the pubic symphysis. Coronal and sagittal reformats were performed. For radiation dose reduction, the following was used: automated exposure control, adjustment of mA and/or kV according to patient size. COMPARISON: [facility], CT, ABDOMEN/PELVIS WITHOUT CONTRAS, 03/17/2014, 6:54. FINDINGS: Image quality: Diagnostic. Lower Chest: No significant findings. ABDOMEN: Liver: No solid mass. Gallbladder: Removed. Biliary ducts: No biliary dilation. Pancreas: No ductal dilation. Spleen: Size is within normal limits. Adrenal Glands: No adrenal nodules. Kidneys and Ureters: No hydronephrosis. No solid mass. No complex renal cystic lesion which requires follow up. Stomach and Bowel: No obstruction. Diverticular present without inflammatory change. Mild appearance of nonspecific thickening at the rectosigmoid junction, series 2, image 126. No inflammatory change. Peritoneum: No abnormal intraperitoneal fluid. No free air. Ventral Wall: No significant ventral hernia. Abdominal Nodes: No retroperitoneal or mesenteric adenopathy by size criteria. Vessels: Aorta and inferior vena cava are normal in size. PELVIS: Pelvic Organs: Unremarkable. Bladder: No bladder wall thickening, accounting for underdistention. Pelvic Nodes: No enlarged lymph nodes. Miscellaneous: No inguinal hernias are seen. Bones: No aggressive osseous abnormality. IMPRESSION: Diverticulosis. No inflammatory change. Nonspecific thickening at the rectosigmoid junction without inflammation. While this could be secondary to incomplete distention, follow-up is recommended to exclude presence of underlying mass. Dictated by: Tiara Mitchell M.D. on 08/01/2024 at 19:51 Approved by: Tiara Mitchell M.D. on 08/01/2024 at 19:55
--- NOTE | 2024-08-01 19:15 | EKG_ITS ---
[address] [address] Test Date: 2024-08-01 Pat Name: Arely Chauhan Department: Room: Gender: Female International Student Advisor: HERMELINDA DALTON : 1955 Requested By: Order Number: [id number] Reading MD: Jamal Torres Measurements Intervals Wanda Rate: 77 P: 69 NC: 166 QRS: -2 QRSD: 76 T: 20 QT: 426 QTc: 482 Interpretive Statements Normal sinus rhythm Electronically Signed On 08-03-2024 18:05:43 PDT by Jamal Torres
[2024-08-01] MEDS: SODIUM CHLORIDE 0.9% 1,000 ML 1000 ML IV (19:19)
[2024-08-01 19:30] LABS: Bacteria Urine Few (2-10); Mucus Urine 2+ (Negative); RBC Urine 0-1/HPF (0-5/HPF); Squamous Epithelial Cell Urine 0-1 /HPF (0-5/HPF); Urine Volume 10mL (spun); WBC Urine 1-5/HPF (0-5/HPF)
--- NOTE | 2024-08-01 19:32 | PC.NURSE ---
Patient has been unable to take her medications due to n/v, blood pressure in department is 236/108. Provider notified and med ordered, see DEC.
[2024-08-01] MEDS: LOSARTAN 50 MG TABLET 100 MG PO (19:43)
[2024-08-01 19:51] LABS: Influenza A - CEPHEID Flu A NEGATIVE (NEGATIVE); Influenza B - CEPHEID Flu B NEGATIVE (NEGATIVE); Respiratory Syncytial Virus Negative (Negative)
[2024-08-01 20:02] LABS: COVID-19 CEPHEID 4-PLEX PCR Negative (Negative)
[2024-08-01 20:19] LABS: Creatine Kinase 31 U/L (30-135)
[2024-08-01 20:32] LABS: Troponin I < 0.012 ng/mL (0.01-0.034)
[2024-08-01] MEDS: MORPHINE ER 15 MG TABLET PO (20:35)
[2024-08-01] MEDS: cephALEXin 250 MG CAPSULE 500 MG PO (20:40)
[2024-08-01] MEDS: MORPHINE 4 MG/ML INJ IV (21:09)
== END 2024-08-01 22:05 | disposition home or self-care (01) ==
PROVIDERS: Student in an Organized Health Care Education/Training Program; Emergency Provider Emergency Medicine; Family Provider Internal Medicine; PCP Internal Medicine
DX: N39.0 Urinary tract infection, site not specified (principal); N17.9 Acute kidney failure, unspecified; E87.6 Hypokalemia; R11.2 Nausea with vomiting, unspecified; Z79.899 Other long term (current) drug therapy
CPT/HCPCS: 0241U; 36415; 74177; 80053; 81003; 81015; 82550; 83605; 83690; 84484; 85025; 85610; 87086; 93005; 96361; 96374; 96375; 96376; 99284; J2270; J2405; Q9967